=== PATIENT | female | born 1945 | race Caucasian/White ===

== ENCOUNTER 2016-10-28 18:46 | Observation (INO) ==
[2016-10-28 20:07] LABS: Basophils # 0.1 K/mcL (0.0-0.2); Basophils % 1.1 %; Eosinophils # 0.5 K/mcL (0.0-0.6); Eosinophils % 9.4 %; Hematocrit 36.3 % (35.3-44.9); Hemoglobin 11.4 g/dL (11.5-15.4); Immature Granulocytes % 0.4 % (0-4); Lymphocytes # 1.9 K/mcL (0.6-4.6); Lymphocytes % 33.1 %; Mean Corpuscular HGB Conc 31.4 g/dL (31.6-35.5); Mean Corpuscular Hemoglobin 27.2 pg (28.0-33.3); Mean Corpuscular Volume 86.6 fL (83.0-100.0); Mean Platelet Volume 10.1 fL (9.4-12.4); Monocytes # 0.6 K/mcL (0.0-1.3); Monocytes % 10.3 %; Neutrophils # 2.6 K/mcL (1.6-8.9); Platelet Count 247 K/mcL (140-400); Red Blood Count 4.19 M/mcL (3.82-4.97); Red Cell Distribution Width 14.3 % (11.5-14.5); Segmented Neutrophils % 45.7 %
[2016-10-28 20:12] LABS: INR 1.3; Prothrombin Time 14.1 Seconds (9.4-12.1)
[2016-10-28 20:15] LABS: Activated Partial Thrombo Time 34.7 Seconds (26.0-36.0)
[2016-10-28 20:18] LABS: BUN/Creatinine Ratio 14 (6-26); Blood Urea Nitrogen 12 mg/dL (7-20); Calcium 9.4 mg/dL (8.6-10.8); Carbon Dioxide 27 mEq/L (19-29); Chloride 103 mEq/L (98-109); Glucose 100 mg/dL (70-99); Osmolality,Calculated 284 (280-300); Potassium 3.9 mEq/L (3.5-4.5); Sodium 137 mEq/L (136-145); eGFR For African Americans > 60 (> 60); eGFR For Non-African Americans > 60 (> 60)
--- NOTE | 2016-10-28 21:05 | Emergency Department Note ---
Disposition Clinical Impression: Chest pain, rule out acute myocardial infarction Disposition: Admitted As Inpatient Condition: Good Time of Disposition: 22:31 General Adult HPI - General Chief complaint: ED Chest Pain Stated complaint: chest pain from UC Time Seen by Provider: 10/28/16 19:40 Source: patient Mode of arrival: ambulatory Limitations: no limitations Nursing Notes Reviewed: Yes Vital Signs Reviewed: Yes - History of Present Illness HPI Narrative: 71-year-old male presents with chest pain associated with dyspnea on exertion. Patient states that she has become dyspneic with exertion from her bedroom to the Pain Scale: 0 - Related Data Home Medications Medication Instructions Recorded Confirmed Aspirin Enteric Coated [Aspirin EC] 81 mg PO QAM 06/07/15 10/28/16 Atorvastatin [Lipitor] 40 mg PO DAILY 06/07/15 10/28/16 Carvedilol [Coreg] 25 mg PO BID 06/07/15 10/28/16 Clopidogrel [Plavix] 75 mg PO QAM 06/07/15 10/28/16 Ezetimibe [Zetia] 10 mg PO QAM 06/07/15 10/28/16 Nitroglycerin 0.4 mg SL AD PRN 06/07/15 10/28/16 Ranitidine HCl [Zantac] 150 mg PO BID 06/07/15 10/28/16 Losartan Potassium [Cozaar] 50 mg PO DAILY 12/20/15 10/28/16 Allergies Allergy/AdvReac Type Severity Reaction Status Date / Time No Known Allergies Allergy Verified 06/07/15 14:36 All systems ED: reviewed and negative except as stated. Constitutional: Reports: weakness. Denies: fever, chills Cardiovascular: Reports: chest pain, palpitations, dyspnea on exertion. Denies : orthopnea, syncope, paroxysmal nocturnal dyspnea Respiratory: Reports: cough, dyspnea. Denies: wheezes Gastrointestinal: Reports: nausea. Denies: abdominal pain, vomiting, diarrhea Genitourinary: Denies: urgency, dysuria Musculoskeletal: Denies: back pain, neck pain Integumentary: Denies: rash, abrasion Neurological: Denies: headache, weakness, numbness Past Medical History - Past Medical History Attestation: Yes The following information was validated with the patient. Source: patient Medical history: Reports: hypertension, other Surgical history: Reports: angioplasty/stent, breast surgery, cholecystectomy, hysterectomy, knee replacement, other Psychiatric history: Reports: no psych history PC SUPPORT SPECIALIST history: Reports: no PC SUPPORT SPECIALIST history, bilateral tubal ligation - Social History Smoking Status: Never smoker Smokeless Tobacco Status: No Alcohol use: Reports: none Drug use: Reports: none Physical Exam General: Alert and in no acute distress Skin: Warm, dry, intact Head: Normocephalic and atraumatic Neck: Supple, trachea midline and no tenderness Cardiovascular: RRR, no murmur, normal perfusion Respiratory: CTAB, no wheezing, cough, or respiratory distress Musculoskeletal: Normal strength, no tenderness, swelling or deformity GI: Soft, nontender, nondistended. Bowel sounds present Neuro: A&O to person, place, time and situation. No focal deficits noted on exam Psychiatric: cooperative and appropriate mood and affect. - General Limitations: no limitations General appearance: alert Course Vital Signs Temperature 97.0 F L 10/28/16 18:48 Pulse Rate 65 10/28/16 18:48 Respiratory Rate 18 10/28/16 18:48 Blood Pressure 177/85 10/28/16 18:48 O2 Sat by Pulse Oximetry 97 10/28/16 18:48 Temperature 97.0 F L 10/28/16 18:48 Pulse Rate 65 10/28/16 20:50 Respiratory Rate 20 10/28/16 21:56 Blood Pressure 160/84 10/28/16 21:56 O2 Sat by Pulse Oximetry 99 10/28/16 20:50 Oxygen Delivery Oxygen Delivery Nasal Cannula Medical Decision Making - Medical Records Medical records reviewed: Yes I reviewed the patient's medical records. - Lab Data Lab results reviewed: Yes I reviewed the patient's lab results. Result diagrams: 10/28/16 19:59 10/28/16 19:59 Lab Results 10/28/16 10/28/16 10/28/16 Range/Units 19:59 19:59 19:59 WBC 5.7 (4.3-11.1) K/mcL RBC 4.19 (3.82-4.97) M/mcL Hgb 11.4 L (11.5-15.4) g/dL Hct 36.3 (35.3-44.9) % MCV 86.6 (83.0-100.0) fL MCH 27.2 L (28.0-33.3) pg MCHC 31.4 L (31.6-35.5) g/dL RDW 14.3 (11.5-14.5) % Plt Count 247 (140-400) K/mcL MPV 10.1 (9.4-12.4) fL Immature Gran % 0.4 (0-4) % Seg Neutrophils % 45.7 % Lymphocytes % 33.1 % Monocytes % 10.3 % Eosinophils % 9.4 % Basophils % 1.1 % Neutrophils # 2.6 (1.6-8.9) K/mcL Lymphocytes # 1.9 (0.6-4.6) K/mcL Monocytes # 0.6 (0.0-1.3) K/mcL Eosinophils # 0.5 (0.0-0.6) K/mcL Basophils # 0.1 (0.0-0.2) K/mcL PT 14.1 H (9.4-12.1) Seconds INR 1.3 APTT 34.7 (26.0-36.0) Seconds Sodium 137 (136-145) mEq/L Potassium 3.9 (3.5-4.5) mEq/L Chloride 103 (98-109) mEq/L Carbon Dioxide 27 (19-29) mEq/L BUN 12 (7-20) mg/dL Creatinine 0.88 (0.57-1.11) mg/dL Est GFR ( Amer) > 60 (> 60) Est GFR (Non-Af Amer) > 60 (> 60) BUN/Creatinine Ratio 14 (6-26) Glucose 100 H (70-99) mg/dL Calculated Osmolality 284 (280-300) Calcium 9.4 (8.6-10.8) mg/dL Troponin I (0-0.03) ng/mL 10/28/16 Range/Units 19:59 WBC (4.3-11.1) K/mcL RBC (3.82-4.97) M/mcL Hgb (11.5-15.4) g/dL Hct (35.3-44.9) % MCV (83.0-100.0) fL MCH (28.0-33.3) pg MCHC (31.6-35.5) g/dL RDW (11.5-14.5) % Plt Count (140-400) K/mcL MPV (9.4-12.4) fL Immature Gran % (0-4) % Seg Neutrophils % % Lymphocytes % % Monocytes % % Eosinophils % % Basophils % % Neutrophils # (1.6-8.9) K/mcL Lymphocytes # (0.6-4.6) K/mcL Monocytes # (0.0-1.3) K/mcL Eosinophils # (0.0-0.6) K/mcL Basophils # (0.0-0.2) K/mcL PT (9.4-12.1) Seconds INR APTT (26.0-36.0) Seconds Sodium (136-145) mEq/L Potassium (3.5-4.5) mEq/L Chloride (98-109) mEq/L Carbon Dioxide (19-29) mEq/L BUN (7-20) mg/dL Creatinine (0.57-1.11) mg/dL Est GFR ( Amer) (> 60) Est GFR (Non-Af Amer) (> 60) BUN/Creatinine Ratio (6-26) Glucose (70-99) mg/dL Calculated Osmolality (280-300) Calcium (8.6-10.8) mg/dL Troponin I 0.01 (0-0.03) ng/mL - Radiology Data Radiology results reviewed: Yes I reviewed the patient's radiology results. - EKG Data EKG #1 EKG attestation: Yes I reviewed and interpreted this EKG. EKG results narrative: ECG - interpreted by ED physician. normal sinus rhythm, no STEMI, MT, QT intervals, and QRS within normal limits
[2016-10-28] MEDS ORDERED: Nitroglycerin 0.4 MG TAB.SUBL SL PRN (22:45)
[2016-10-28] MEDS ORDERED: Acetaminophen 325 MG TABLET PO PRN (23:03)
[2016-10-28] MEDS ORDERED: Ondansetron 4 MG/2 ML VIAL IVP PRN (23:03)
[2016-10-28] MEDS ORDERED: Naloxone 0.4 MG/ML INJ IVP PRN (23:03)
--- NOTE | 2016-10-28 23:22 | Internal Med History&Physical ---
Date of Encounter: 10/28/16 Time of Encounter: 21:15 Internal Medicine - H&P: HPI Chief complaint: chest pain x 1 day Admitted From: Emergency Dept Plans for Post Hospital Care: Home History of present illness: Ms. Renner is a 71 year old female with medical history significant for CAD s/ p PCI with two coronary stents, presents with chest pain at rest, associated with nausea and SOB with an exertional component. The chest pain went up her left shoulder and down her arm. Chest pain is intermittent, last about 1 hour. No other associated symptoms. Her daughter convinced her to come to hospital. A complete ROS was performed. She is FULL CODE as per discussion. She nominates her daughter (Mahsa Crystal, ) as her NOK/POA. Medical history: Reports: hypertension, other Surgical history: Reports: angioplasty/stent, breast surgery, cholecystectomy, hysterectomy, knee replacement, other Psychiatric history: Reports: no psych history PROGRAM INSTRUCTOR history: Reports: no PROGRAM INSTRUCTOR history, bilateral tubal ligation Smoking Status: Never smoker Smokeless Tobacco Status: None Alcohol use: Reports: none Drug use: Reports: none Family hx: Sister: DM2, DAUGHTER: asthma Vital Signs Temperature 97.0 F L 10/28/16 18:48 Pulse Rate 65 10/28/16 18:48 Respiratory Rate 18 10/28/16 18:48 Blood Pressure 177/85 10/28/16 18:48 O2 Sat by Pulse Oximetry 97 10/28/16 18:48 Temperature 97.0 F L 10/28/16 18:48 Pulse Rate 65 10/28/16 20:50 Respiratory Rate 20 10/28/16 21:56 Blood Pressure 160/84 10/28/16 21:56 O2 Sat by Pulse Oximetry 99 10/28/16 20:50 O/E: Not in distress, not pale, anicteric, afebrile,acyanotic, HEENT: Trachea is central, no cervical or jugular lymphadenopathy Chest: CTAB. chest pain is not reproducible Heart:rrr, hs1/2 Abdomen: non-distended,soft, , non-tender,no masses. BS+ : no flank or CVA tenderness, no suprapubic tenderness MARINE PHOTOGRAPHER: aao x 3, no gross focal neurological deficit. Psychaitry: Mood is good, affect is congruent, speech is normal, thought process is logical and goal-directed. Extremities: no pedal normal pedal pulses, no calf tenderness SKIN: No active skin lesion Lab Results 10/28/16 10/28/16 10/28/16 Range/Units 19:59 19:59 19:59 WBC 5.7 (4.3-11.1) K/mcL RBC 4.19 (3.82-4.97) M/mcL Hgb 11.4 L (11.5-15.4) g/dL Hct 36.3 (35.3-44.9) % MCV 86.6 (83.0-100.0) fL MCH 27.2 L (28.0-33.3) pg MCHC 31.4 L (31.6-35.5) g/dL RDW 14.3 (11.5-14.5) % Plt Count 247 (140-400) K/mcL MPV 10.1 (9.4-12.4) fL Immature Gran % 0.4 (0-4) % Seg Neutrophils % 45.7 % Lymphocytes % 33.1 % Monocytes % 10.3 % Eosinophils % 9.4 % Basophils % 1.1 % Neutrophils # 2.6 (1.6-8.9) K/mcL Lymphocytes # 1.9 (0.6-4.6) K/mcL Monocytes # 0.6 (0.0-1.3) K/mcL Eosinophils # 0.5 (0.0-0.6) K/mcL Basophils # 0.1 (0.0-0.2) K/mcL PT 14.1 H (9.4-12.1) Seconds INR 1.3 APTT 34.7 (26.0-36.0) Seconds Sodium 137 (136-145) mEq/L Potassium 3.9 (3.5-4.5) mEq/L Chloride 103 (98-109) mEq/L Carbon Dioxide 27 (19-29) mEq/L BUN 12 (7-20) mg/dL Creatinine 0.88 (0.57-1.11) mg/dL Est GFR ( Amer) > 60 (> 60) Est GFR (Non-Af Amer) > 60 (> 60) BUN/Creatinine Ratio 14 (6-26) Glucose 100 H (70-99) mg/dL Calculated Osmolality 284 (280-300) Calcium 9.4 (8.6-10.8) mg/dL Troponin I (0-0.03) ng/mL 10/28/16 Range/Units 19:59 WBC (4.3-11.1) K/mcL RBC (3.82-4.97) M/mcL Hgb (11.5-15.4) g/dL Hct (35.3-44.9) % MCV (83.0-100.0) fL MCH (28.0-33.3) pg MCHC (31.6-35.5) g/dL RDW (11.5-14.5) % Plt Count (140-400) K/mcL MPV (9.4-12.4) fL Immature Gran % (0-4) % Seg Neutrophils % % Lymphocytes % % Monocytes % % Eosinophils % % Basophils % % Neutrophils # (1.6-8.9) K/mcL Lymphocytes # (0.6-4.6) K/mcL Monocytes # (0.0-1.3) K/mcL Eosinophils # (0.0-0.6) K/mcL Basophils # (0.0-0.2) K/mcL PT (9.4-12.1) Seconds INR APTT (26.0-36.0) Seconds Sodium (136-145) mEq/L Potassium (3.5-4.5) mEq/L Chloride (98-109) mEq/L Carbon Dioxide (19-29) mEq/L BUN (7-20) mg/dL Creatinine (0.57-1.11) mg/dL Est GFR ( Amer) (> 60) Est GFR (Non-Af Amer) (> 60) BUN/Creatinine Ratio (6-26) Glucose (70-99) mg/dL Calculated Osmolality (280-300) Calcium (8.6-10.8) mg/dL Troponin I 0.01 (0-0.03) ng/mL EKG: NSR, normla interval, normal axis CXR: No gross cardiopulmonary disease IMP Atypical chest pain, ACS vs GERD Chronic morbidities Hypertension CAD s/p PCI x 2 stents. GERD on chronic PPI PLAN Admit to telemetry Cycle troponins, serial EKG Stress test in the AM Continue essential medications of chronic morbidities DVT prophylaxis. I discussed my findings and assessment with the patient, her daughter was at bedside, they verbalized understanding and are agreeable to admiited. She is high risk giving has history of CAD with PCI. Past Med Surg Social Fam HX - Past Medical History Medical history: hypertension, other Psychiatric history: no psych history - Past Surgical History Surgical History: angioplasty/stent, breast surgery, cholecystectomy, hysterectomy, knee replacement, other - Social History Smoking Status: Never smoker Smokeless Tobacco Status: No Alcohol use: none Drug use: none - Family History Mother Living Status: Hx Family Cardiac Disorders: Yes Father Living Status: Hx Family Cardiac Disorders: Yes Sister Living Status: Still Living Brother Living Status: Still Living Hx Family Cardiac Disorders: Yes Internal Medicine - H&P: Meds Aspirin Enteric Coated [Aspirin EC] 81 mg PO QAM 06/07/15 [History] Atorvastatin [Lipitor] 40 mg PO DAILY 06/07/15 [History] Carvedilol [Coreg] 25 mg PO BID 06/07/15 [History] Clopidogrel [Plavix] 75 mg PO QAM 06/07/15 [History] Ezetimibe [Zetia] 10 mg PO QAM 06/07/15 [History] Nitroglycerin 0.4 mg SL AD PRN 06/07/15 [History] Ranitidine HCl [Zantac] 150 mg PO BID 06/07/15 [History] Losartan Potassium [Cozaar] 50 mg PO DAILY 12/20/15 [History] Allergies No Known Allergies Allergy (Verified 06/07/15 14:36) All Systems PM: A 10-system review of systems was performed and is negative for pertinent findings except as documented above in the HPI. - Constitutional Vitals: Temp Pulse Resp BP Pulse Ox 97.5 F L 69 16 141/73 98 10/28/16 22:47 10/28/16 22:47 10/28/16 22:47 10/28/16 22:47 10/28/16 22:47 Internal Med - H&P Results - Labs CBC & Chem 7: 10/28/16 19:59 10/28/16 19:59
[2016-10-29] MEDS: *HR* Enoxaparin 30 MG/0.3 ML SYRINGE SQ SCH (05:20)
[2016-10-29] MEDS ORDERED: Regadenoson 0.4 MG/5 ML SYRINGE IVP ONE (06:16)
[2016-10-29] MEDS: *HR* Morphine 2 MG/ML SYRINGE IVP PRN ×2 (09:21→22:40)
[2016-10-29] MEDS: Aspirin Enteric Coated 81 MG Tablet PO SCH (09:22)
[2016-10-29] MEDS: Famotidine 20 MG TABLET PO SCH ×2 (09:22→17:54)
[2016-10-29] MEDS: ZETIA 10MG PO SCH (09:30)
--- NOTE | 2016-10-29 16:01 | Internal Med Progress Note ---
Date of Encounter: 10/29/16 Time of Encounter: 12:45 - Assessment and plan (1) Chest pain Current Visit: Yes Status: Acute Assessment and plan: Nuclear stress test part one done today. Awaiting part 2 get scheduled for tomorrow. Chest pain has now resolved. Patient does have increased risk for ACS due to history of coronary artery disease. Qualifiers: Chest pain type: precordial chest pain Qualified Code(s): R07.2 - Precordial pain (2) GERD (gastroesophageal reflux disease) Current Visit: Yes Status: Chronic Assessment and plan: On PPI. Continue Qualifiers: Esophagitis presence: without esophagitis Qualified Code(s): K21.9 - Gastro -esophageal reflux disease without esophagitis (3) CAD (coronary artery disease) Current Visit: Yes Status: Chronic Assessment and plan: Continue aspirin, Plavix, Lipitor and carvedilol. Qualifiers: Coronary Disease-Associated Artery/Lesion type: [place] artery [place] vs. transplanted heart: [place] heart Associated angina: with stable angina Qualified Code(s): I25.118 - Atherosclerotic heart disease of [place] coronary artery with other forms of angina pectoris (4) Hypertension Current Visit: Yes Status: Chronic Assessment and plan: Blood pressure is well controlled at this time. Qualifiers: Hypertension type: essential hypertension Qualified Code(s): I10 - Essential (primary) hypertension - Subjective Interval history: Patient is feeling better today. No longer having any chest pain. No shortness of breath. No abdominal pain nausea or vomiting. - Constitutional Vitals: Temp Pulse Resp BP Pulse Ox 98 F 74 14 125/59 92 L 10/29/16 12:29 10/29/16 12:29 10/29/16 12:29 10/29/16 12:29 10/29/16 12:29 General appearance: Present: cooperative, mild distress, A&O X 3, answers questions appropriately - Respiratory Respiratory exam: Present: CTAB. Absent: accessory muscle use, rales, rhonchi, wheezes - Cardiovascular Cardiovascular exam: Present: RRR, +S1, +S2. Absent: diastolic murmur, gallop, rubs, systolic murmur - GI/Abdominal GI/Abdominal exam: Present: normal bowel sounds, soft, no peritoneal signs. Absent: distended, tenderness - Extremities Exam Extremities exam: Present: warm, radial pulses palpable and symetrical. Absent : calf tenderness, cyanotic, pedal edema - Neurological Exam Neurological exam: Present: CN II-XII intact, oriented X3, no focal deficits. Absent: facial droop, speech deficit - Skin Skin exam: Present: dry, intact Internal Medicine: Result - Labs CBC & Chem 7: 10/28/16 19:59 10/28/16 19:59 Labs: Cardiac Enzymes 10/29/16 10/29/16 Range/Units 03:26 09:12 Troponin I 0.01 0.02 (0-0.03) ng/mL - ABG Interpretation ABG results: PT/INR, D-dimer PT 14.1 Seconds (9.4-12.1) H 10/28/16 19:59 Consult Discharge Plan - Plan Referrals: Mo wilson MD [Primary Care Provider] - - Attending Attestation This document has been at least partially created by [employer] recognition technology by Dr. Jacobs. Errors in grammar, wording or other phrases may exist. If errors are found after the documentation is signed, they will be addressed individually in the addendum section of this document when appropriate. Medical Decision Making - MDM Narrative Medical decision making narrative: Moderate risk for complications - Medical Records Medical records reviewed: Yes I reviewed the patient's medical records. - Lab Data Lab results reviewed: Yes I reviewed the patient's lab results. Result diagrams: 10/28/16 19:59 10/28/16 19:59 Lab Results 10/29/16 10/29/16 Range/Units 03:26 09:12 Troponin I 0.01 0.02 (0-0.03) ng/mL
--- NOTE | 2016-10-29 18:23 | Electrocardiograph Report ---
[facility] Test Date: 2016-10-28 Pat Name: Pepper Renner Department: 105 Room: 3B23 Gender: F Waste Reduction Coordinator: : 1945 Requested By: Mo Henderson Order Number: [id number] Reading MD: Letha Zarate Measurements Intervals Lester Rate: 66 P: 35 MN: 163 QRS: 1 QRSD: 84 T: 13 QT: 378 QTc: 392 Interpretive Statements SINUS RHYTHM MODERATE VOLTAGE CRITERIA FOR LVH, CONSIDER NORMAL VARIANT Electronically Signed On 10-29-16 18:22:24 EST by Letha Zarate
[2016-10-30] MEDS: *HR* Enoxaparin 30 MG/0.3 ML SYRINGE SQ SCH (06:02)
[2016-10-30] MEDS ORDERED: Regadenoson 0.4 MG/5 ML SYRINGE IVP ONE (06:23)
[2016-10-30 11:45] VITALS: BP 133/76
--- NOTE | 2016-10-30 12:13 | Nuclear Medicine Stress Report ---
Regadenoson Nuclear 2 day Name: Pepper Renner Date of Study: 10/29/2016 Date: 1945 Ht: 59.0 in Medical Record#: [id number] Age: 71 Wt: 185.0 lb Gender: Female Order #: [id number] Location: [facility] Room: [facility] Supervising Provider: Krish Emery CNP Reading Physician: Ramona Torres DO Ordering Physician: Rasheed Jacobs MD Primary Care Physician: Mo Chang MD Stress Technologist: Cholo Meneses, ANIMAL NUTRITION CONSULTANT, CCT Sexer: Esau Amin Indications: Chest Pain Impression: Perfusion imaging was negative for ischemia or infarct. Pharmacologic ECG was negative for ischemia at the level of heart rate achieved. Patient described 3/10 chest pain prior to start of study which increased to 8/10 during testing. Findings are nonspecific. Gated EF = >70%. History: Hypertension Hypercholesteremia Prior PCI Stress Test Summary: Stress Test Type: Pharmacologic Regadenoson 0.4mg/5ml given IV Baseline Information: Initial Heart Rate: 74 Blood Pressure: 146/84 Stress Information: Stress Time: 4 min 00 sec Test Terminated Due to (primary): Completed Protocol Maximum Blood Pressure: 146/80 Maximum Heart Rate: 93 Percent Maximum Heart Rate Achieved: 62 Double Product: [id number] METS Reached: 1 Symptoms: Chest pain Nuclear Summary: SPECT myocardial perfusion imaging using Tc99m Sestamibi given intravenously was performed at rest and following cardiac stress testing. The resting images were obtained following initial dose of 10.4 mCi. Following stress an additional dose of 34.6 mCi was given at peak exercise or 30 seconds post regadenoson infusion. Medication Given: Time Medication Dose Units Route Findings: Stress Note * Resting ECG demonstrated normal sinus rhythm with normal findings. * Pharmacologic stress ECG is negative for ischemia at level of heart rate achieved. * No arrhythmias were noted during stress. * Patient had chest pain/pressure during stress. Hemodynamic responses * Normal hemodynamic responses to pharmacologic stress. Study Quality * Study quality is good. Gated EF > 70% * Gated EF > 70%. Left Ventricle * The left ventricle is not dilated. TID * No evidence of transient ischemic dilatation. Lung Uptake * There is no evidence of increase lung uptake. NORMALS * Normal wall motion. * Normal segmental perfusion in stress. * Normal Segmental Perfusion in rest. Updated by Ramona Torres on 10/30/2016 12:05:14 PM electronically signed on 10/30/2016 12:06:24 PM with status of Final
--- NOTE | 2016-10-30 14:07 | Discharge Summary ---
Date of Encounter: 10/30/16 Time of Encounter: 14:04 - Discharge Diagnosis (1) Chest pain Priority: Primary Status: Acute Qualifiers: Chest pain type: precordial pain Qualified Code(s): R07.2 - Precordial pain (2) GERD (gastroesophageal reflux disease) Priority: Secondary Status: Chronic Qualifiers: Esophagitis presence: without esophagitis Qualified Code(s): K21.9 - Gastro -esophageal reflux disease without esophagitis (3) CAD (coronary artery disease) Priority: Secondary Status: Chronic Qualifiers: Coronary Disease-Associated Artery/Lesion type: [place] artery [place] vs. transplanted heart: [place] heart Associated angina: with stable angina Qualified Code(s): I25.118 - Atherosclerotic heart disease of [place] coronary artery with other forms of angina pectoris (4) Hypertension Priority: Secondary Status: Chronic Qualifiers: Hypertension type: essential hypertension Qualified Code(s): I10 - Essential (primary) hypertension - Discharge Medications Prescriptions: Acetaminophen [Tylenol] 650 mg PO Q6HR PRN #60 tablet PRN Reason: Mild Pain (1-3) Home Medications: Aspirin Enteric Coated [Aspirin EC] 81 mg PO QAM 06/07/15 [History] Atorvastatin [Lipitor] 40 mg PO DAILY 06/07/15 [History] Carvedilol [Coreg] 25 mg PO BID 06/07/15 [History] Clopidogrel [Plavix] 75 mg PO QAM 06/07/15 [History] Ezetimibe [Zetia] 10 mg PO QAM 06/07/15 [History] Nitroglycerin 0.4 mg SL AD PRN 06/07/15 [History] Ranitidine HCl [Zantac] 150 mg PO BID 06/07/15 [History] Losartan Potassium [Cozaar] 50 mg PO DAILY 12/20/15 [History] Acetaminophen [Tylenol] 650 mg PO Q6HR PRN #60 tablet 10/30/16 [Rx] Allergies/Adverse Reactions: Allergies No Known Allergies Allergy (Verified 06/07/15 14:36) Procedures/tests Complete & Pending: Procedures Performed prior 72 hours Category Date Time Status NM bhaskar perf SPECT multi [NM] Routine Exams 10/29/16 06:00 Taken ECG 12 lead ECG [ECG] AM 0600 Y 10/29/16 06:00 Ordered SP pharm nuclear stress Routine Y 10/30/16 07:40 Completed Date of admission: 10/28/16 21:42 Primary care physician: Mo Chang MD Discharging clinician: Rasheed Jacobs Anticipated date of discharge: 10/30/16 - Patient Status Disposition: Home, Self-Care Condition: Good Functional capacity at discharge: independent ambulation Overall status at discharge: patient is progressing back to baseline - Discharge Instructions Instructions: Chest Pain (DC), Chronic Hypertension (DC) Follow Up With: Mo Chang MD [Primary Care Provider] - (in 1 week) - Diet and Activity Activity: increase activity as tolerated Diet: low fat, low cholesterol, low salt diet Hospital course: Ms. Renner is a 71 year old female with history of coronary artery disease status post PCI and coronary stents presented to the ER with complaints of chest pain. She was observed in the hospital and monitored with telemetry and EKGs. She also had troponins checked. As these were negative, she underwent nuclear stress test. Stress test does not show any signs suggestive of ischemia. Patient continues to have intermittent chest pain associated with costochondral tenderness. Pain is most likely related to costochondritis. This can be treated with analgesics like acetaminophen. Patient does have a history of gastroesophageal reflux disease which could also be contributing to her chest pain. As such she would not be a candidate for NSAIDs. The patient is currently stable for discharge and will follow up with primary care provider for further management. - Time Spent with Patient Total time spent providing and/or coordinating discharge services: Less than 30 minutes (25 min) - Constitutional Vitals: Temp Pulse Resp BP Pulse Ox 97.6 F 71 18 133/76 91 L 10/30/16 11:43 10/30/16 11:43 10/30/16 11:43 10/30/16 11:43 10/30/16 11:43 General appearance: Present: cooperative, mild distress, A&O X 3, answers questions appropriately - Respiratory Respiratory exam: Present: chest wall tenderness, CTAB. Absent: accessory muscle use, rales, rhonchi, wheezes - Cardiovascular Cardiovascular exam: Present: RRR, +S1, +S2. Absent: diastolic murmur, gallop, rubs, systolic murmur Additional comments: Left sided chest wall tenderness present - Extremities Exam Extremities exam: Present: warm, radial pulses palpable and symetrical. Absent : calf tenderness, cyanotic, pedal edema - Neurological Exam Neurological exam: Present: oriented X3, no focal deficits. Absent: facial droop, speech deficit - Skin Skin exam: Present: dry, intact - Attending Attestation This document has been at least partially created by [employer] recognition technology by Dr. Jacobs. Errors in grammar, wording or other phrases may exist. If errors are found after the documentation is signed, they will be addressed individually in the addendum section of this document when appropriate.
[2016-10-30] MEDS: Aspirin Enteric Coated 81 MG Tablet PO SCH (14:59)
[2016-10-30] MEDS: Famotidine 20 MG TABLET PO SCH (14:59)
[2016-10-30] MEDS: ZETIA 10MG PO SCH (14:59)
== END 2016-10-30 16:11 | disposition home or self-care (01) ==
LOC: EMEROO 18:46 → 3BNU 18:46 → SUATTDRO 21:42 → 3BNU 22:13
PROVIDERS: ADMIT Family Medicine; ATTEND Internal Medicine

== ENCOUNTER 2018-08-28 18:12 | Inpatient (IN) ==
[2018-08-28] MEDS ORDERED: Aspirin 81 MG TAB.CHEW PO ONE (18:30)
--- NOTE | 2018-08-28 18:43 | Emergency Department Note ---
Disposition Clinical Impression: Chest pain Qualifiers: Chest pain type: unspecified Qualified Code(s): R07.9 - Chest pain, unspecified Disposition: Admitted As Inpatient Condition: Good Time of Disposition: 20:12 General Adult HPI - General Chief complaint: ED Chest Pain Stated complaint: CP Time Seen by Provider: 08/28/18 18:25 Source: patient Mode of arrival: ambulatory Limitations: no limitations Nursing Notes Reviewed: Yes Vital Signs Reviewed: Yes - History of Present Illness HPI Narrative: Patient is a 72-year-old female that presents the emergency department with chest pain. Patient states that it started approximately one and half hours prior to arrival. Patient states that the pain is located on the left side of her chest and radiates into her left neck and shoulder. Patient states that she did become short of breath nauseated and vomited with her chest pain. Patient's daughter is at bedside and stated that she did give her one nitroglycerin and gave her some Zofran. Denies any diaphoresis. Patient states that she has had stents put in in the past as well as having a heart attack. Patient states that this feels very similar to her previous heart attack. Patient states that her pain as a 10 out of 10. Pain Scale: 10 - Related Data Home Medications Medication Instructions Recorded Confirmed Atorvastatin [Lipitor] 40 mg PO DAILY 06/07/15 08/28/18 Carvedilol [Coreg] 25 mg PO BID 06/07/15 08/28/18 Clopidogrel [Plavix] 75 mg PO QAM 06/07/15 08/28/18 Ezetimibe [Zetia] 10 mg PO QAM 06/07/15 08/28/18 Nitroglycerin 0.4 mg SL AD PRN 06/07/15 08/28/18 Ranitidine HCl [Zantac] 150 mg PO BID 06/07/15 08/28/18 Losartan Potassium [Cozaar] 50 mg PO DAILY 12/20/15 08/28/18 Hyoscyamine SL [Levsin SL] 0.125 mg SL TID PRN 08/28/18 08/28/18 Previous Rx's Medication Instructions Recorded Ondansetron ODT [Zofran ODT] 4 mg SL Q6HR PRN #7 tab.rapdis 07/31/18 Allergies Allergy/AdvReac Type Severity Reaction Status Date / Time No Known Allergies Allergy Verified 08/28/18 18:39 All systems ED: reviewed and negative except as stated. Constitutional: Denies: fever Cardiovascular: Reports: chest pain Respiratory: Reports: dyspnea Gastrointestinal: Reports: nausea, vomiting. Denies: abdominal pain Past Medical History - Past Medical History Medical history: Reports: hypertension, other Surgical history: Reports: angioplasty/stent, breast surgery, cholecystectomy, hysterectomy, knee replacement, other Psychiatric history: Reports: no psych history CLINICAL PROFESSOR history: Reports: no CLINICAL PROFESSOR history, bilateral tubal ligation - Social History Smoking Status: 2nd Hand Smoke Exposure Smokeless Tobacco Status: No Alcohol use: Reports: none Drug use: Reports: none Physical Exam - General Limitations: no limitations General appearance: alert, in no apparent distress - Head Head exam: atraumatic, normocephalic - Eye Eye exam: Present: normal appearance, EOMI - Neck Neck exam: Present: normal inspection, full ROM, trachea midline - Respiratory Respiratory exam: Present: normal lung sounds bilaterally. Absent: respiratory distress, wheezes - Cardiovascular Cardiovascular exam: Present: regular rate, normal rhythm, normal heart sounds, +S1, +S2 - Abdominal Exam Abdominal exam: Present: soft, Non-Tender, normal bowel sounds - Neurological Exam Neurological exam: Present: alert, oriented X3 - Psychiatric Psychiatric exam: Present: normal affect, normal mood - Skin Skin exam: Present: warm, dry, intact Course Vital Signs Temperature 98.4 F 08/28/18 18:21 Pulse Rate 74 08/28/18 18:21 Respiratory Rate 18 08/28/18 18:21 Blood Pressure 130/75 08/28/18 18:21 O2 Sat by Pulse Oximetry 95 08/28/18 18:21 Temperature 98.4 F 08/28/18 18:42 Pulse Rate 76 08/28/18 19:12 Respiratory Rate 20 08/28/18 19:12 Blood Pressure 95/50 08/28/18 19:12 O2 Sat by Pulse Oximetry 98 08/28/18 19:12 Oxygen Delivery Oxygen Delivery Room Air Medical Decision Making - MDM Narrative Medical decision making narrative: Due the patient's into the emergency Department with chest pain with a history of prior myocardial infarction and this feeling very similar to that there is concern for possible cardiac involvement. We will obtain basic laboratory testing quitting CBC, BMP, troponin chest x-ray and EKG. The patient will need to be admitted to the hospital for further evaluation and management of her chest pain due to the acute onset. Patient's laboratory testing is relatively unremarkable other than a mild chronic anemia. Patient's chest x-ray did show a mild perihilar opacity however when compared to previous chest x-ray did not feel that this looks like an overt pneumonia. Patient has not been coughing. His afebrile and does not have an elevated white count. We will not treat the chest x-ray findings here in the emergency department. Patient will need to be admitted to the hospital for further evaluation and management of her chest pain. I called and spoke with the admitting hospitalist and they have accepted the patient to their service. Patient will be admitted to the hospital this time for further evaluation and management. - Medical Records Medical records reviewed: Yes I reviewed the patient's medical records. - Lab Data Lab results reviewed: Yes I reviewed the patient's lab results. Result diagrams: 08/28/18 18:37 08/28/18 18:37 Lab Results 08/28/18 08/28/18 08/28/18 Range/Units 18:37 18:37 18:37 WBC 6.3 (4.3-11.1) K/mcL RBC 3.40 L (3.82-4.97) M/mcL Hgb 9.7 L (11.5-15.4) g/dL Hct 30.3 L (35.3-44.9) % MCV 89.1 (83.0-100.0) fL MCH 28.5 (28.0-33.3) pg MCHC 32.0 (31.6-35.5) g/dL RDW 13.1 (11.5-14.5) % Plt Count 211 (140-400) K/mcL MPV 10.5 (9.4-12.4) fL Immature Gran % 0.3 (0-4) % Seg Neutrophils % 62.4 % Lymphocytes % 21.6 % Monocytes % 10.6 % Eosinophils % 4.5 % Basophils % 0.6 % Neutrophils # 3.9 (1.6-8.9) K/mcL Lymphocytes # 1.4 (0.6-4.6) K/mcL Monocytes # 0.7 (0.0-1.3) K/mcL Eosinophils # 0.3 (0.0-0.6) K/mcL Basophils # 0.0 (0.0-0.2) K/mcL PT 14.0 H (9.4-12.1) Seconds INR 1.2 Sodium 135 L (136-145) mEq/L Potassium 4.3 (3.5-5.1) mEq/L Chloride 101 (98-107) mEq/L Carbon Dioxide 27 (23-29) mEq/L BUN 12 (8-23) mg/dL Creatinine 0.98 (0.60-1.20) mg/dL Est GFR ( Amer) > 60 (> 60) Est GFR (Non-Af Amer) 56 L (> 60) BUN/Creatinine Ratio 12 (6-26) Glucose 114 H (70-105) mg/dL Calculated Osmolality 281 (280-300) Calcium 9.7 (8.6-10.3) mg/dL Troponin I < 0.03 (< 0.04) ng/mL - Radiology Data Radiology results reviewed: Yes I reviewed the patient's radiology results. Chest X-Ray 08/28/18 18:30 IMPRESSION: Mild perihilar opacity. Finding could represent asymmetric edema or multifocal infection. D/ / Tiago Black MD / Tiago Black MD Interpreting Provider: Tiago Black MD - EKG Data EKG #1 EKG attestation: Yes I reviewed and interpreted this EKG. EKG results narrative: EKG shows a sinus rhythm at a rate of 66 bpm, NC interval 153, QRS duration of 83, QTC of 391. No evidence of STEMI and EKG.
[2018-08-28] MEDS: Nitroglycerin 0.4 MG TAB.SUBL SL ONE ×2 (18:55→19:10)
[2018-08-28 19:05] LABS: Basophils % 0.6 %; Eosinophils # 0.3 K/mcL (0.0-0.6); Eosinophils % 4.5 %; Hematocrit 30.3 % (35.3-44.9); Hemoglobin 9.7 g/dL (11.5-15.4); Immature Granulocytes % 0.3 % (0-4); Lymphocytes # 1.4 K/mcL (0.6-4.6); Lymphocytes % 21.6 %; Mean Corpuscular Hemoglobin 28.5 pg (28.0-33.3); Mean Corpuscular Volume 89.1 fL (83.0-100.0); Mean Platelet Volume 10.5 fL (9.4-12.4); Monocytes # 0.7 K/mcL (0.0-1.3); Monocytes % 10.6 %; Neutrophils # 3.9 K/mcL (1.6-8.9); Platelet Count 211 K/mcL (140-400); Red Cell Distribution Width 13.1 % (11.5-14.5); Segmented Neutrophils % 62.4 %
--- NOTE | 2018-08-28 19:11 | Emergency Department Note ---
Disposition Clinical Impression: Chest pain Qualifiers: Chest pain type: unspecified Qualified Code(s): R07.9 - Chest pain, unspecified Disposition: Admitted As Inpatient Condition: Good General Adult HPI - General Chief complaint: ED Chest Pain Stated complaint: CP Time Seen by Provider: 08/28/18 18:25 Source: patient Mode of arrival: ambulatory Limitations: no limitations - History of Present Illness Pain Scale: 10 - Related Data Home Medications Medication Instructions Recorded Confirmed Atorvastatin [Lipitor] 40 mg PO DAILY 06/07/15 08/28/18 Carvedilol [Coreg] 25 mg PO BID 06/07/15 08/28/18 Clopidogrel [Plavix] 75 mg PO QAM 06/07/15 08/28/18 Ezetimibe [Zetia] 10 mg PO QAM 06/07/15 08/28/18 Nitroglycerin 0.4 mg SL AD PRN 06/07/15 08/28/18 Ranitidine HCl [Zantac] 150 mg PO BID 06/07/15 08/28/18 Losartan Potassium [Cozaar] 50 mg PO DAILY 12/20/15 08/28/18 Hyoscyamine SL [Levsin SL] 0.125 mg SL TID PRN 08/28/18 08/28/18 Previous Rx's Medication Instructions Recorded Ondansetron ODT [Zofran ODT] 4 mg SL Q6HR PRN #7 tab.rapdis 07/31/18 Allergies Allergy/AdvReac Type Severity Reaction Status Date / Time No Known Allergies Allergy Verified 08/28/18 18:39 Constitutional: Denies: fever Cardiovascular: Reports: chest pain Respiratory: Reports: dyspnea Gastrointestinal: Reports: nausea, vomiting. Denies: abdominal pain Past Medical History - Past Medical History Medical history: Reports: hypertension, other Surgical history: Reports: angioplasty/stent, breast surgery, cholecystectomy, hysterectomy, knee replacement, other Psychiatric history: Reports: no psych history LABORATORY ENGINEER history: Reports: no LABORATORY ENGINEER history, bilateral tubal ligation - Social History Smoking Status: 2nd Hand Smoke Exposure Smokeless Tobacco Status: No Alcohol use: Reports: none Drug use: Reports: none Physical Exam - General Limitations: no limitations General appearance: alert, in no apparent distress Course Vital Signs Temperature 98.4 F 08/28/18 18:21 Pulse Rate 74 08/28/18 18:21 Respiratory Rate 18 08/28/18 18:21 Blood Pressure 130/75 08/28/18 18:21 O2 Sat by Pulse Oximetry 95 08/28/18 18:21 Temperature 98.0 F 08/28/18 21:15 Pulse Rate 70 08/28/18 21:15 Respiratory Rate 16 08/28/18 21:15 Blood Pressure 139/73 08/28/18 21:15 O2 Sat by Pulse Oximetry 93 08/28/18 21:15 Oxygen Delivery Oxygen Delivery Room Air Medical Decision Making - Lab Data Result diagrams: 08/28/18 18:37 08/28/18 18:37 Lab Results 08/28/18 08/28/18 08/28/18 Range/Units 18:37 18:37 18:37 WBC 6.3 (4.3-11.1) K/mcL RBC 3.40 L (3.82-4.97) M/mcL Hgb 9.7 L (11.5-15.4) g/dL Hct 30.3 L (35.3-44.9) % MCV 89.1 (83.0-100.0) fL MCH 28.5 (28.0-33.3) pg MCHC 32.0 (31.6-35.5) g/dL RDW 13.1 (11.5-14.5) % Plt Count 211 (140-400) K/mcL MPV 10.5 (9.4-12.4) fL Immature Gran % 0.3 (0-4) % Seg Neutrophils % 62.4 % Lymphocytes % 21.6 % Monocytes % 10.6 % Eosinophils % 4.5 % Basophils % 0.6 % Neutrophils # 3.9 (1.6-8.9) K/mcL Lymphocytes # 1.4 (0.6-4.6) K/mcL Monocytes # 0.7 (0.0-1.3) K/mcL Eosinophils # 0.3 (0.0-0.6) K/mcL Basophils # 0.0 (0.0-0.2) K/mcL PT 14.0 H (9.4-12.1) Seconds INR 1.2 Sodium 135 L (136-145) mEq/L Potassium 4.3 (3.5-5.1) mEq/L Chloride 101 (98-107) mEq/L Carbon Dioxide 27 (23-29) mEq/L BUN 12 (8-23) mg/dL Creatinine 0.98 (0.60-1.20) mg/dL Est GFR ( Amer) > 60 (> 60) Est GFR (Non-Af Amer) 56 L (> 60) BUN/Creatinine Ratio 12 (6-26) Glucose 114 H (70-105) mg/dL Calculated Osmolality 281 (280-300) Calcium 9.7 (8.6-10.3) mg/dL Troponin I < 0.03 (< 0.04) ng/mL Attestation Statement - Attestation Attestation: I examined this patient and my medical decision-making was reviewed with the Resident Physician. I agree with the documented findings, disposition and treatment plan as described except to the extent set forth below. Patient presents to the emergency Department chief complaint of chest pain. Left-sided. Radiating into her arm and into her neck. History of CO and states this feels similar. Started while she was frying chicken. He took a nitroglycerin with no relief. She is in no acute distress on examination. Heart regular rate and rhythm lungs are clear. Plan. EKG does not show any acute ischemic changes. She has one new T-wave inversion. Neck workup and likely admission. Workup negative. Admitted for further cardiac workup.
[2018-08-28 19:12] LABS: INR 1.2
[2018-08-28 19:24] LABS: Troponin I < 0.03 ng/mL (< 0.04)
[2018-08-28 19:52] LABS: BUN/Creatinine Ratio 12 (6-26); Blood Urea Nitrogen 12 mg/dL (8-23); Calcium 9.7 mg/dL (8.6-10.3); Carbon Dioxide 27 mEq/L (23-29); Chloride 101 mEq/L (98-107); Glucose 114 mg/dL (70-105); Osmolality,Calculated 281 (280-300); Potassium 4.3 mEq/L (3.5-5.1); Sodium 135 mEq/L (136-145); eGFR For Non-African Americans 56 (> 60)
[2018-08-28] MEDS ORDERED: Naloxone 0.4 MG/ML INJ IVP PRN (20:23)
[2018-08-28] MEDS ORDERED: Hyoscyamine SL 0.125 MG TAB.SUBL SL PRN (20:24)
--- NOTE | 2018-08-28 20:34 | Internal Med History&Physical ---
Date of Encounter: 08/28/18 Time of Encounter: 20:32 Internal Medicine - H&P: HPI Chief complaint: Chest pain Admitted From: Emergency Dept Plans for Post Hospital Care: Home History of present illness: Ms. Renner is a 72 year old female with history of coronary artery disease status post PCI and coronary stents , hyperlipidemia, hypertension who presents with complaints of chest pain that has been going on and off since about 5 PM while she was before supper. She is also been dealing with a productive cough for the last week or so. No fevers reported. The patient has had a negative stress test October 2016. She says the chest pain is about 6 out of 10 feels like pressure on the left side with radiation down her arm on the left side as well. No diaphoresis or dizziness. She reports shortness of breath with that as well as feeling nauseous. She vomited once. 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 In the ED she was hemodynamically stable and had laboratory workup as well as an EKG. EKG showed no acute ST or T-wave changes. Labs were mostly unremarkable. Chest x-ray showed possible perihilar infiltrate. She was not given antibiotics in the ED. Her chest pain did improve with nitroglycerin in the ED. Denies any headache, blurry vision, rashes, abdominal pain, diarrhea, constipation, urinary symptoms, or neurological symptoms. Past Med Surg Social Fam HX - Past Medical History Medical history: hypertension, other Additional medical history: osterarthritis, gallstones Psychiatric history: no psych history - Past Surgical History Surgical History: angioplasty/stent, breast surgery, cholecystectomy, hysterectomy, knee replacement, other Additional surgical history: cardiac stents x 2. bilat knee replacements - Social History Smoking Status: 2nd Hand Smoke Exposure Smokeless Tobacco Status: No Alcohol use: none Drug use: none - Family History Mother Living Status: Hx Family Cardiac Disorders: Yes Father Living Status: Hx Family Cardiac Disorders: Yes Sister Living Status: Still Living Brother Living Status: Still Living Hx Family Cardiac Disorders: Yes Internal Medicine - H&P: Meds Atorvastatin [Lipitor] 40 mg PO DAILY 06/07/15 [History] Carvedilol [Coreg] 25 mg PO BID 06/07/15 [History] Clopidogrel [Plavix] 75 mg PO QAM 06/07/15 [History] Ezetimibe [Zetia] 10 mg PO QAM 06/07/15 [History] Nitroglycerin 0.4 mg SL AD PRN 06/07/15 [History] Ranitidine HCl [Zantac] 150 mg PO BID 06/07/15 [History] Losartan Potassium [Cozaar] 50 mg PO DAILY 12/20/15 [History] Ondansetron ODT [Zofran ODT] 4 mg SL Q6HR PRN #7 tab.rapdis 07/31/18 [Rx] Hyoscyamine SL [Levsin SL] 0.125 mg SL TID PRN 08/28/18 [History] Allergy/AdvReac Type Severity Reaction Status Date / Time No Known Allergies Allergy Verified 08/28/18 18:39 All Systems PM: A 10-system review of systems was performed and is negative for pertinent findings except as documented above in the HPI. Review of systems: All systems reviewed are negative except as mentioned above - Constitutional Vitals: Temp Pulse Resp BP Pulse Ox 98.4 F 76 20 95/50 98 08/28/18 18:42 08/28/18 19:12 08/28/18 19:12 08/28/18 19:12 08/28/18 19:12 Exam: GEN: NAD HEENT: AT, NC, No cyanosis, oral mucosa is moist, No JVD Lymphatics: No lymphadenoapthy Eyes: Extrocular muscles intact, anicteric CVS:RRR. S1, S2, No m/r/g RESP: CTAB ABD: Soft, NT, ND, +BS EXT: No edema, No rashes, 2+ DP NEURO: Nonfocal, CN II-XII intact, No focal motor or sensory deficits Psych: Cooperative, Not anxious or depressed Internal Med - H&P Results - Labs CBC & Chem 7: 08/28/18 18:37 08/28/18 18:37 Labs: Short CBC 08/28/18 Range/Units 18:37 WBC 6.3 (4.3-11.1) K/mcL Hgb 9.7 L (11.5-15.4) g/dL Hct 30.3 L (35.3-44.9) % Plt Count 211 (140-400) K/mcL Neutrophils # 3.9 (1.6-8.9) K/mcL BMP 08/28/18 18:37 Sodium 135 L Potassium 4.3 Chloride 101 Carbon Dioxide 27 BUN 12 Creatinine 0.98 Glucose 114 H Calcium 9.7 Cardiac Enzymes 08/28/18 Range/Units 18:37 Troponin I < 0.03 (< 0.04) ng/mL - Impressions ITS Impressions Chest X-Ray 08/28/18 18:30 IMPRESSION: Mild perihilar opacity. Finding could represent asymmetric edema or multifocal infection. D/ / Tiago Black MD / Tiago Black MD Interpreting Provider: Tiago Black MD - Assessment and plan (1) Chest pain Current Visit: Yes Status: Acute Assessment and plan: Admit to telemetry. Trend cardiac enzymes. NPO after midnight. Stress test in the morning. She was given aspirin and sublingual nitroglycerin in the ED. We will continue insulin with nitroglycerin. Check hemoglobin A1c and lipid panel. Qualifiers: Chest pain type: unspecified Qualified Code(s): R07.9 - Chest pain, unspecified (2) Cough Current Visit: Yes Status: Acute Assessment and plan: There is infiltrate on the chest x-ray and she reports a cough that is productive. We will rule out the flu. Check sputum. Check urine strep and Legionella. We will put her on oral Levaquin she will possibly need 5 days of treatment. She is not requiring any oxygen at the moment. (3) CAD (coronary artery disease) Current Visit: No Status: Chronic Assessment and plan: Continue home cardiac meds Qualifiers: Coronary Disease-Associated Artery/Lesion type: [place] artery [place] vs. transplanted heart: [place] heart Associated angina: without angina Qualified Code(s): I25.10 - Atherosclerotic heart disease of [place] coronary artery without angina pectoris (4) GERD (gastroesophageal reflux disease) Current Visit: No Status: Chronic Assessment and plan: Continue home meds Qualifiers: Esophagitis presence: without esophagitis Qualified Code(s): K21.9 - Gastro-esophageal reflux disease without esophagitis (5) Hypertension Current Visit: No Status: Chronic Assessment and plan: Continue home meds Qualifiers: Hypertension type: essential hypertension Qualified Code(s): I10 - Essential (primary) hypertension (6) DVT prophylaxis Current Visit: Yes Status: Acute Assessment and plan: Heparin subcutaneous - Time Spent With Patient Total time spent is greater than 50% in coordination of care (as documented) at patient's floor/unit and/or counseling patient:
[2018-08-28] MEDS: levoFLOXacin 750 MG TABLET PO SCH (21:56)
[2018-08-28] MEDS: Famotidine 20 MG TABLET PO SCH (21:56)
[2018-08-28] MEDS: *HR* Heparin 5,000 UNIT/ML VIAL SQ SCH (21:56)
[2018-08-29] MEDS: *HR* Heparin 5,000 UNIT/ML VIAL SQ SCH ×3 (05:02→20:16)
[2018-08-29] MEDS ORDERED: Regadenoson 0.4 MG/5 ML SYRINGE IVP ONE (06:06)
[2018-08-29 07:11] LABS: Basophils % 0.7 %; Eosinophils # 0.2 K/mcL (0.0-0.6); Eosinophils % 4.1 %; Hematocrit 31.9 % (35.3-44.9); Hemoglobin 9.8 g/dL (11.5-15.4); Immature Granulocytes % 0.2 % (0-4); Lymphocytes # 1.2 K/mcL (0.6-4.6); Lymphocytes % 26.6 %; Mean Corpuscular HGB Conc 30.7 g/dL (31.6-35.5); Mean Corpuscular Hemoglobin 27.6 pg (28.0-33.3); Mean Corpuscular Volume 89.9 fL (83.0-100.0); Mean Platelet Volume 10.5 fL (9.4-12.4); Monocytes # 0.5 K/mcL (0.0-1.3); Monocytes % 11.9 %; Neutrophils # 2.5 K/mcL (1.6-8.9); Platelet Count 189 K/mcL (140-400); Red Blood Count 3.55 M/mcL (3.82-4.97); Red Cell Distribution Width 12.9 % (11.5-14.5); Segmented Neutrophils % 56.5 %
[2018-08-29 07:30] LABS: BUN/Creatinine Ratio 12 (6-26); Blood Urea Nitrogen 11 mg/dL (8-23); Calcium 9.7 mg/dL (8.6-10.3); Carbon Dioxide 29 mEq/L (23-29); Chloride 104 mEq/L (98-107); Chol/HDL Ratio 4.8 (0-4.9); Cholesterol 217 mg/dL (< 200); Glucose 104 mg/dL (70-105); HDL Cholesterol 45 mg/dL (40-59); LDL Cholesterol,Calculated 155 mg/dL (0-99); Osmolality,Calculated 288 (280-300); Potassium 4.1 mEq/L (3.5-5.1); Sodium 139 mEq/L (136-145); Triglycerides 87 mg/dL (< 150); eGFR For Non-African Americans > 60 (> 60)
[2018-08-29 09:27] LABS: Estimated Average Glucose 123 mg/dl; Hemoglobin A1C 5.9 %
[2018-08-29] MEDS: Famotidine 20 MG TABLET PO SCH ×2 (11:00→20:16)
[2018-08-29] MEDS: (Ezetimibe [Zetia] 10 MG) PO SCH (11:02)
--- NOTE | 2018-08-29 11:57 | Internal Med Progress Note ---
Hospitalist Progress Note - Encounter Date of Encounter: 08/29/18 Time of Encounter: 11:54 - Subjective Interval History: 72-year-old man female with past medical history of CAD status post stent placement presented with abrupt onset of chest pain. Underwent a stress test this morning which revealed moderate ischemic change at inferolateral wall. Patient still reported on and off chest pain, relieved partially by nitroglycerin. She also reported syncope yesterday prior to admission. She has no fever, chills, or night sweats. She denies shortness breath, cough, or palpitation. - Exam Vitals: Temp Pulse Resp BP Pulse Ox 98.0 F 68 14 148/78 99 08/29/18 03:46 08/29/18 03:46 08/29/18 03:46 08/29/18 03:46 08/29/18 03:46 Exam: PHYSICAL EXAMINATION: GENERAL APPEARANCE: The patient is alert, oriented and in no acute distress. HEENT: Head is normocephalic. The sinuses are nontender. Pupils are equal and reactive. The nares are patent. Oropharynx clear without lesions. NECK: Supple without lymphadenopathy. HEART: Regular rate and rhythm. LUNGS: No crackles or wheezes are heard. ABDOMEN: Soft, nontender, nondistended with good bowel sounds heard. Inguinal area is normal. EXTREMITIES: Without cyanosis, clubbing or edema. NEUROLOGICAL: Gross nonfocal. SKIN: Warm and dry without any rash. - Assessment and Plan (1) Chest pain Current Visit: Yes Status: Acute Assessment and Plan: EKG at the ED showed no acute ST-T change, troponin was negative 3, however, stress test performed this morning revealed moderate ischemic change at inferior and lateral wall. Patient received aspirin and Plavix already. Continue manage CV risk factors including hypertension, nitroglycerin as needed for chest pain. Echocardiogram ordered. Cardiology consult. (2) CAD (coronary artery disease) Current Visit: No Status: Chronic Assessment and Plan: Continue home cardiac meds, abnormal stress test result revealed. pending echocardiogram, cardiology consult. (3) GERD (gastroesophageal reflux disease) Current Visit: No Status: Chronic Assessment and Plan: Continue home meds (4) Hypertension Current Visit: No Status: Chronic Assessment and Plan: Continue home meds (5) Cough Current Visit: Yes Status: Acute Assessment and Plan: There is infiltrate on the chest x-ray and she reports a cough that is productive. We will rule out the flu. Check sputum. Check urine strep and Legionella. We will put her on oral Levaquin she will possibly need 5 days of treatment. She is not requiring any oxygen at the moment. (6) DVT prophylaxis Current Visit: Yes Status: Acute Assessment and Plan: Heparin subcutaneous - Time Spent with Patient Total time spent is greater than 50% in coordination of care (as documented) at patient's floor/unit and/or counseling patient: Greater than 35 minutes Plan of Care Discussed with: patient Internal Medicine: Result - Labs CBC & Chem 7: 08/29/18 06:43 08/29/18 06:43 Labs: Short CBC 08/28/18 08/29/18 Range/Units 18:37 06:43 WBC 6.3 4.4 (4.3-11.1) K/mcL Hgb 9.7 L 9.8 L (11.5-15.4) g/dL Hct 30.3 L 31.9 L (35.3-44.9) % Plt Count 211 189 (140-400) K/mcL Neutrophils # 3.9 2.5 (1.6-8.9) K/mcL BMP 08/28/18 08/29/18 18:37 06:43 Sodium 135 L 139 Potassium 4.3 4.1 Chloride 101 104 Carbon Dioxide 27 29 BUN 12 11 Creatinine 0.98 0.90 Glucose 114 H 104 Calcium 9.7 9.7 Cardiac Enzymes 08/28/18 08/29/18 08/29/18 Range/Units 18:37 00:04 06:43 Troponin I < 0.03 < 0.03 < 0.03 (< 0.04) ng/mL - ABG Interpretation ABG results: PT/INR, D-dimer PT 14.0 Seconds (9.4-12.1) H 08/28/18 18:37 - Impressions Impressions Chest X-Ray 08/28/18 18:30 IMPRESSION: Mild perihilar opacity. Finding could represent asymmetric edema or multifocal infection. D/ / Tiago Black MD / Tiago Black MD Interpreting Provider: Tiago Black MD Consult Discharge Plan - Plan Referrals: BernardoMo MD [Primary Care Provider] - (1) Chest pain Qualifiers: Chest pain type: unspecified Qualified Code(s): R07.9 - Chest pain, unspecified (2) CAD (coronary artery disease) Qualifiers: Coronary Disease-Associated Artery/Lesion type: [place] artery [place] vs. transplanted heart: [place] heart Associated angina: without angina Qualified Code(s): I25.10 - Atherosclerotic heart disease of [place] coronary artery without angina pectoris (3) GERD (gastroesophageal reflux disease) Qualifiers: Esophagitis presence: without esophagitis (4) Hypertension Qualifiers: Hypertension type: essential hypertension Qualified Code(s): I10 - Essential (primary) hypertension
--- NOTE | 2018-08-29 15:42 | Cardiology Consult Note ---
<Alka Velez - Last Filed: 08/29/18 15:39> Date of Encounter: 08/29/18 Time of Encounter: 15:00 Assessment and Plan (1) Chest pain Current Visit: Yes Status: Acute Per cardiology: -Presents with angina. Denies current chest pain. -Troponins negative. -ECG unchanged from baseline. -Stress test abnormal. -TTE pending. -Remote history of PCI, last [facility] 12/2015 with mild CAD. -On asa, statin, BB, plavix. -of note, hemoglobin decreased from baseline. -Recommend [facility] when able. See anemia. Qualifiers: Chest pain type: unspecified Qualified Code(s): R07.9 - Chest pain, uns pecified (2) Anemia Current Visit: Yes Status: Acute Per cardiology: -Hemoglobin noted to be decreased from baseline. -Reports dark stools, states on iron supplements, however states has also noted bright red blood per rectum. -Per family, patient had similar issues previously and had colon cancer? -Recommend anemia work up. Recommend GI consult. -Management per primary service. Qualifiers: Anemia type: unspecified type Qualified Code(s): D64.9 - Anemia, unspeci fied Discussion w patient/family: The assessment and plan as outlined above was discussed with the patient and/or family members who expressed understanding and agreement. All questions were answered. Thank you for involving us in the care of your patient. Please call wi th any questions. Discussed and reviewed with History of Present Illness Consult date: 08/29/18 Requesting physician: Oc Odell Consult reason: chest pain Chief complaint: chest pain History of present illness: Ms. Renner is a 72 year old female with a relevant past medical history of CAD s/p PCI, ID, HTN, tobacco abuse, GERD, HLD, anemia, reported remote colon cancer who presented to [facility] with complaints of chest pain. Patient states she was up walking around kitchen when she had sudden onset of left sided chest pain that radiated to left arm. Patient reports associated shortness of breath, nausea, vomiting. Also reports increased weakness. Patient states she took 2 nitro at home without relief so she presented to [facility]. Patient denies current chest pain. Past Med Surg Social Fam HX - Past Medical History Attestation: Yes The following information was validated with the patient. Source: patient, old records reviewed, obtained from family Medical history: coronary artery disease, hyperlipidemia, hypertension, bhaskar cardial infarction, other Additional medical history: osterarthritis, gallstones Psychiatric history: no psych history - Past Surgical History Surgical History: angioplasty/stent, breast surgery, cholecystectomy, hysterectomy, knee replacement, other Additional surgical history: cardiac stents x 2. bilat knee replacements - Social History Smoking Status: 2nd Hand Smoke Exposure Smokeless Tobacco Status: No Alcohol use: none Drug use: none - Family History Mother Living Status: Hx Family Cardiac Disorders: Yes Father Living Status: Hx Family Cardiac Disorders: Yes Sister Living Status: Still Living Brother Living Status: Still Living Hx Family Cardiac Disorders: Yes Medications and Allergies Atorvastatin [Lipitor] 40 mg PO DAILY 06/07/15 [History] Carvedilol [Coreg] 25 mg PO BID 06/07/15 [History] Clopidogrel [Plavix] 75 mg PO QAM 06/07/15 [History] Ezetimibe [Zetia] 10 mg PO QAM 06/07/15 [History] Nitroglycerin 0.4 mg SL AD PRN 06/07/15 [History] Ranitidine HCl [Zantac] 150 mg PO BID 06/07/15 [History] Losartan Potassium [Cozaar] 50 mg PO DAILY 12/20/15 [History] Ondansetron ODT [Zofran ODT] 4 mg SL Q6HR PRN #7 tab.rapdis 07/31/18 [Rx] Hyoscyamine SL [Levsin SL] 0.125 mg SL TID PRN 08/28/18 [History] Allergy/AdvReac Type Severity Reaction Status Date / Time No Known Allergies Allergy Verified 08/28/18 18:39 All Systems Review: The remainder of the systems were reviewed and are negative - Cardiovascular Cardiovascular: as per HPI, chest pain with exertion, dyspnea on exertion Physical Examination Vital Signs, Last 4 Hours Temp Pulse Resp BP Pulse Ox 08/29/18 15:28 97.7 F 68 16 134/70 95 08/29/18 12:22 97.7 F 66 16 119/67 96 General: Conversant, No Apparent Distress HEENT: Atraumatic, Normocephaly, Mucus Membranes Moist Neck: No JVD, Normal carotid pulses Cardiac: Reg Rate and Rhythm, Normal S1 and S2, No Murmur Lungs: Normal Breath Sounds, No Wheeze, Rales, Rhonchi Neuro: Alert and responsive, No focal deficits noted Abdomen: Soft, Non-Tender Skin: No rashes noted on visualized skin Musculoskeletal: No Chest Wall Tenderness Extremities: No Clubbing, No Cyanosis, No Edema, Normal Pulses Results 08/29/18 06:43 08/29/18 06:43 Lab Results Impressions Chest X-Ray 08/28/18 18:30 IMPRESSION: Mild perihilar opacity. Finding could represent asymmetric edema or multifocal infection. D/ / Tiago Black MD / Tiago Black MD Interpreting Provider: Tiago Black MD Active Medications Acetaminophen (Tylenol) 650 mg PO Q6HR PRN PRN Reason: Mild Pain/Fever Stop: 02/27/19 20:24 Atorvastatin Calcium (Lipitor) 40 mg PO DAILY [facility] Stop: 02/28/19 09:01 Last Admin: 08/29/18 11:01 Dose: 40 mg Carvedilol (Coreg) 25 mg PO BIDWM [facility]; Protocol Stop: 02/27/19 21:01 Last Admin: 08/29/18 11:01 Dose: 25 mg Clopidogrel Bisulfate (Plavix) 75 mg PO QAM [facility] Stop: 02/28/19 09:01 Last Admin: 08/29/18 11:01 Dose: 75 mg Famotidine (Pepcid) 10 mg PO BID [facility] Stop: 02/27/19 21:01 Last Admin: 08/29/18 11:00 Dose: 10 mg Heparin Sodium (Porcine) (Heparin) 5,000 unit SQ Q8HCO [facility] Stop: 02/27/19 22:01 Last Admin: 08/29/18 14:49 Dose: Not Given Hyoscyamine (Levsin Sl) 0.125 mg SL TID PRN PRN Reason: stomach pain Stop: 02/27/19 20:25 Levofloxacin (Levaquin) 750 mg PO Q48H [facility] Stop: 02/27/19 21:01 Last Admin: 08/28/18 21:56 Dose: 750 mg Losartan Potassium (Cozaar) 50 mg PO DAILY [facility] Stop: 02/28/19 09:01 Last Admin: 08/29/18 11:01 Dose: 50 mg Naloxone HCl (Narcan) 0.4 mg IVP Q2MIN PRN PRN Reason: SEE COMMENTS Stop: 02/27/19 20:24 Pharmacy Profile Note (Patient Taking Own Medication) 1 each PO QAM [facility] Stop: 02/28/19 09:01 Last Admin: 08/29/18 11:02 Dose: Not Given Laboratory Tests 07/31/18 08/06/18 08/28/18 12:12 14:17 18:37 Hgb 12.1 11.0 L 9.7 L Creatinine Troponin I 08/28/18 08/29/18 08/29/18 18:37 00:04 06:43 Hgb 9.8 L Creatinine Troponin I < 0.03 < 0.03 08/29/18 08/29/18 06:43 06:43 Hgb Creatinine 0.90 Troponin I < 0.03 - Imaging and Cardiology Chest Xray: report reviewed Stress Test: report reviewed Echo: pending - EKG Interpretation EKG results cardiology: personally reviewed (ECG with SR, non-specific T wave abnormalities noted, similar to previous.), other (Telemetry reviewed with average HR previous 12 hours noted to be 75, SR, PVCs, PACS noted.) Consult Discharge Plan - Plan Referrals: [facility] [place],Mo Palomo MD [Primary Care Provider] - <Ever Adams - Last Filed: 08/29/18 17:58> Date of Encounter: 08/29/18 - Attending Attestation Patient was seen and evaluated independently by me. Findings, assessment and plan were discussed at length with patient, questions answered. Agree with nurse practitioner's/resident's documentation. Addition as follows, 72yoCF ho remote PCI, colon Ca?/polyps, HTN, smoking, anemia. P/w typical exertional angina. No dynamic ECG, neg trop, but SPECT + moderate inferolateral ischemia. TTE preserved EF, mod-sever . Meanwhile Hb lower than baseline with recent BRBPR and melena. No recurrent cp after admission. On plavix, BB, statin. HD stable,CTA,, RR, S1/P2,3/6 SM R-2nd ICS, NT, no LE edema A: CAD, exertional angina, no angina at rest, moderate inferolateral ischemia on SPECT; will need LHC w/ possible PCI vs CABG/AVR Moderate to severe , no ho syncope, CHF acute on chronic anemia, r/o GIB P: GI consult r/o active GIB LH w/ possible PCI after clear from GIB will decide on PCI only or CABG with AVR on LHC c/w plavix, statin, BB start ASA 81 daily if recurrent cp, NTG, ECG, troponin and start heparin drip with Hb check q12 hrs Ever Adams MD, PhD Assessment and Plan Discussion w patient/family: The assessment and plan as outlined above was discussed with the patient and/or family members who expressed understanding and agreement. All questions were answered. Thank you for involving us in the care of your patient. Please call with any questions. History of Present Illness History of present illness: Ms. Renner is a 72 year old female All Systems Review: The remainder of the systems were reviewed and are negative Physical Examination Vital Signs, Last 4 Hours Temp Pulse Resp BP Pulse Ox 08/29/18 15:28 97.7 F 68 16 134/70 95 Results 08/29/18 06:43 08/29/18 06:43 Lab Results 08/28/18 08/28/18 08/28/18 18:37 18:37 18:37 WBC 6.3 Hgb 9.7 L Hct 30.3 L Plt Count 211 INR 1.2 Sodium 135 L Potassium 4.3 Chloride 101 Carbon Dioxide 27 BUN 12 Creatinine 0.98 Glucose 114 H Calcium 9.7 Magnesium Troponin I < 0.03 08/29/18 08/29/18 08/29/18 00:04 06:43 06:43 WBC 4.4 Hgb 9.8 L Hct 31.9 L Plt Count 189 INR Sodium 139 Potassium 4.1 Chloride 104 Carbon Dioxide 29 BUN 11 Creatinine 0.90 Glucose 104 Calcium 9.7 Magnesium 2.0 Troponin I < 0.03 08/29/18 06:43 WBC Hgb Hct Plt Count INR Sodium Potassium Chloride Carbon Dioxide BUN Creatinine Glucose Calcium Magnesium Troponin I < 0.03
[2018-08-30] MEDS: Acetaminophen 325 MG TABLET PO PRN (05:50)
[2018-08-30] MEDS: *HR* Heparin 5,000 UNIT/ML VIAL SQ SCH ×3 (05:51→20:27)
[2018-08-30 06:07] LABS: Basophils % 0.7 %; Eosinophils # 0.2 K/mcL (0.0-0.6); Eosinophils % 4.6 %; Hematocrit 33.2 % (35.3-44.9); Hemoglobin 10.6 g/dL (11.5-15.4); Immature Granulocytes % 0.2 % (0-4); Lymphocytes # 1.4 K/mcL (0.6-4.6); Lymphocytes % 31.9 %; Mean Corpuscular HGB Conc 31.9 g/dL (31.6-35.5); Mean Corpuscular Hemoglobin 28.6 pg (28.0-33.3); Mean Corpuscular Volume 89.7 fL (83.0-100.0); Mean Platelet Volume 10.5 fL (9.4-12.4); Monocytes # 0.5 K/mcL (0.0-1.3); Monocytes % 11.5 %; Neutrophils # 2.3 K/mcL (1.6-8.9); Platelet Count 194 K/mcL (140-400); Red Cell Distribution Width 12.8 % (11.5-14.5); Segmented Neutrophils % 51.1 %
[2018-08-30] MEDS: Famotidine 20 MG TABLET PO SCH ×2 (08:27→20:27)
[2018-08-30] MEDS: (Ezetimibe [Zetia] 10 MG) PO SCH (08:28)
--- NOTE | 2018-08-30 11:23 | Cardiology Progress Note ---
Date of Encounter: 08/30/18 Time of Encounter: 09:30 Assessment and Plan (1) Anemia Current Visit: Yes Status: Acute Per cardiology: -Hemoglobin noted to be decreased from baseline. -Reports dark stools, states on iron supplements, however states has also noted bright red blood per rectum. -Per family, patient had similar issues previously and had colon cancer? -Recommend anemia work up. Recommend GI consult. -Management per primary service. Qualifiers: Anemia type: unspecified type Qualified Code(s): D64.9 - Anemia, unspecified (2) Chest pain Current Visit: Yes Status: Acute Patient presents with anginal symptoms. Stress test completed and shows moderate inferior lateral ischemia. LHC as recommended for further evaluation of ischemia and moderate to severe . Troponins are negative. Noted that he met globin was decreased from baseline. Would recommend GI evaluation prior to LHC. Plan for LHC when able from anemia standpoint. Continue aspirin, statin, beta rosalio, and Plavix. We will start aspirin today. Qualifiers: Chest pain type: unspecified Qualified Code(s): R07.9 - Chest pain, unspecified (3) Aortic stenosis Current Visit: Yes Status: Acute TTE reveals moderate to severe . Patient pending LHC during hospital stay. Qualifiers: Cardiac valve disease etiology: etiology unspecified Qualified Code(s): I35.0 - Nonrheumatic aortic (valve) stenosis (4) CAD (coronary artery disease) Current Visit: No Status: Chronic History of mild CAD and prior LHC. Pending repeat LHC for abnormal stress test and angina. Qualifiers: Coronary Disease-Associated Artery/Lesion type: [place] artery [place] vs. transplanted heart: [place] heart Associated angina: without angina Qualified Code(s): I25.10 - Atherosclerotic heart disease of [place] coronary artery without angina pectoris Discussion w patient/family: The assessment and plan as outlined above was discussed with the patient and/or family members who expressed understanding and agreement. All questions were answered. Thank you for involving us in the care of your patient. Please call with any questions. Subjective Principal diagnosis: Chest pain, abnormal stress test, anemia Interval history: No new complaints overnight. Objective Vital Signs, Last 4 Hours Temp Pulse Resp BP Pulse Ox 08/30/18 07:38 97.8 F 57 21 146/72 95 General: Conversant, No Apparent Distress HEENT: Atraumatic, Normocephaly, Mucus Membranes Moist Neck: No JVD, Normal carotid pulses Cardiac: Reg Rate and Rhythm, Normal S1 and S2, No Murmur Lungs: Normal Breath Sounds, No Wheeze, Rales, Rhonchi Neuro: Alert and responsive, No focal deficits noted Abdomen: Soft, Non-Tender Skin: No rashes noted on visualized skin Musculoskeletal: No Chest Wall Tenderness Extremities: No Clubbing, No Cyanosis, No Edema, Normal Pulses Results 08/30/18 05:40 08/29/18 06:43 Lab Results 08/30/18 05:40 WBC 4.5 Hgb 10.6 L Hct 33.2 L Plt Count 194 - Imaging and Cardiology Stress Test: report reviewed Echo: report reviewed - EKG Interpretation EKG results cardiology: personally reviewed Consult Discharge Plan - Plan Referrals: Mo Chang MD [Primary Care Provider] -
--- NOTE | 2018-08-30 11:34 | Internal Med Progress Note ---
Hospitalist Progress Note - Encounter Date of Encounter: 08/30/18 Time of Encounter: 11:32 - Subjective Interval History: 72-year-old man female with past medical history of CAD status post stent placement presented with abrupt onset of chest pain. Underwent a stress test this morning which revealed moderate ischemic change at inferolateral wall. Patient still reported on and off chest pain, relieved partially by nitroglycerin. She also reported syncope yesterday prior to admission. She has no fever, chills, or night sweats. She denies shortness breath, cough, or palpitation. - Exam Vitals: Temp Pulse Resp BP Pulse Ox 97.8 F 57 21 146/72 95 08/30/18 07:38 08/30/18 07:38 08/30/18 07:38 08/30/18 07:38 08/30/18 07:38 Exam: PHYSICAL EXAMINATION: GENERAL APPEARANCE: The patient is alert, oriented and in no acute distress. HEENT: Head is normocephalic. The sinuses are nontender. Pupils are equal and reactive. The nares are patent. Oropharynx clear without lesions. NECK: Supple without lymphadenopathy. HEART: Regular rate and rhythm. LUNGS: No crackles or wheezes are heard. ABDOMEN: Soft, nontender, nondistended with good bowel sounds heard. Inguinal area is normal. EXTREMITIES: Without cyanosis, clubbing or edema. NEUROLOGICAL: Gross nonfocal. SKIN: Warm and dry without any rash. - Assessment and Plan (1) Chest pain Current Visit: Yes Status: Acute Assessment and Plan: EKG at the ED showed no acute ST-T change, troponin was negative 3, however, stress test performed this morning revealed moderate ischemic change at inferior and lateral wall. Patient received aspirin and Plavix already. Continue manage CV risk factors including hypertension, nitroglycerin as needed for chest pain. TTE performed and showed EF 65%, normal LV function, mod-severe . Pt has chronic anemia but has no evidence of active bleeding, Hgb is stable at the baseline. Stool occult blood test pending. Continue aspirin and Plavix. cardiology consulted, appreciate help. (2) CAD (coronary artery disease) Current Visit: No Status: Chronic Assessment and Plan: Continue home cardiac meds, abnormal stress test result revealed. cardiology following. (3) GERD (gastroesophageal reflux disease) Current Visit: No Status: Chronic Assessment and Plan: Continue home meds (4) Hypertension Current Visit: No Status: Chronic Assessment and Plan: Continue home meds (5) Cough Current Visit: Yes Status: Resolved (6) Anemia Current Visit: No Status: Chronic Assessment and Plan: Pt has chronic anemia, reported recent black stool and bright red bloody stool. will order stool for occult blood test. Hgb stable at baseline. (7) DVT prophylaxis Current Visit: Yes Status: Acute Assessment and Plan: Heparin subcutaneous - Time Spent with Patient Total time spent is greater than 50% in coordination of care (as documented) at patient's floor/unit and/or counseling patient: Greater than 35 minutes Plan of Care Discussed with: patient Internal Medicine: Result - Labs CBC & Chem 7: 08/30/18 05:40 08/29/18 06:43 Labs: Short CBC 08/30/18 Range/Units 05:40 WBC 4.5 (4.3-11.1) K/mcL Hgb 10.6 L (11.5-15.4) g/dL Hct 33.2 L (35.3-44.9) % Plt Count 194 (140-400) K/mcL Neutrophils # 2.3 (1.6-8.9) K/mcL - ABG Interpretation ABG results: PT/INR, D-dimer PT 14.0 Seconds (9.4-12.1) H 08/28/18 18:37 - Impressions Impressions Echocardiogram 08/29/18 11:51 Impressions: LVEF 65%. Normal LV chamber size, wall thickness and systolic function. Mild left ventricular diastolic dysfunction. Normal right ventricular structure and function. Moderate-severe aortic stenosis. Mild aortic regurgitation. Mild mitral regurgitation. Mild tricuspid regurgitation. No pulmonary hypertension. Left Ventricular Wall Motion: Rest Echo Findings All wall segments showed normal motion. Findings: Study Quality * Technically adequate exam. ECG Findings * Normal sinus rhythm. Left Ventricle * LVEF 65%. * Normal LV chamber size, wall thickness and systolic function. * Mild left ventricular diastolic dysfunction. Right Ventricle * Normal right ventricular structure and function. Left Atrium * Normal left atrial size. Right Atrium * Normal right atrial size. Interatrial Septum * No evidence of PFO by color Doppler. * Interatrial septum not well evaluated. Aortic Valve * Severely calcified aortic valve leaflets. * Moderate-severe aortic stenosis. * Mild aortic regurgitation. Mitral Valve * Normal mitral valve structure. * No mitral stenosis. * Mild mitral regurgitation. Tricuspid Valve * Normal tricuspid valve structure. * No tricuspid stenosis. * Mild tricuspid regurgitation. * No pulmonary hypertension. * Estimated RA pressure is 5 mmHg. * Estimated RVSP is 36 mmHg. Pulmonic Valve * Pulmonic valve is not well visualized. * No pulmonic stenosis. * No pulmonic regurgitation. Aorta * Normally sized aortic root. Pericardium * The pericardium appears normal. IVC * Normal IVC dimensions and inspiratory collapse. Consult Discharge Plan - Plan Referrals: Bernardo,Mo Palomo MD [Primary Care Provider] - (1) Chest pain Qualifiers: Chest pain type: unspecified Qualified Code(s): R07.9 - Chest pain, unspecified (2) CAD (coronary artery disease) Qualifiers: Coronary Disease-Associated Artery/Lesion type: [place] artery [place] vs. transplanted heart: [place] heart Associated angina: without angina Qualified Code(s): I25.10 - Atherosclerotic heart disease of [place] coronary artery without angina pectoris (3) GERD (gastroesophageal reflux disease) Qualifiers: Esophagitis presence: without esophagitis (4) Hypertension Qualifiers: Hypertension type: essential hypertension Qualified Code(s): I10 - Essential (primary) hypertension (6) Anemia Qualifiers: Anemia type: unspecified type Qualified Code(s): D64.9 - Anemia, unspecified
[2018-08-30] MEDS: Aspirin Enteric Coated 81 MG Tablet PO SCH (11:41)
[2018-08-30] MEDS: levoFLOXacin 750 MG TABLET PO SCH (20:27)
[2018-08-31] MEDS: Nitroglycerin 0.4 MG TAB.SUBL SL PRN ×2 (03:22→03:29)
[2018-08-31] MEDS: Acetaminophen 325 MG TABLET PO PRN ×2 (03:29→19:38)
[2018-08-31 05:01] LABS: Basophils # 0.1 K/mcL (0.0-0.2); Basophils % 0.9 %; Eosinophils # 0.2 K/mcL (0.0-0.6); Eosinophils % 4.3 %; Hematocrit 33.4 % (35.3-44.9); Hemoglobin 10.8 g/dL (11.5-15.4); Immature Granulocytes % 0.2 % (0-4); Lymphocytes # 1.3 K/mcL (0.6-4.6); Lymphocytes % 24.4 %; Mean Corpuscular HGB Conc 32.3 g/dL (31.6-35.5); Mean Corpuscular Hemoglobin 28.6 pg (28.0-33.3); Mean Corpuscular Volume 88.6 fL (83.0-100.0); Mean Platelet Volume 10.9 fL (9.4-12.4); Monocytes # 0.5 K/mcL (0.0-1.3); Monocytes % 8.9 %; Neutrophils # 3.2 K/mcL (1.6-8.9); Platelet Count 206 K/mcL (140-400); Red Blood Count 3.77 M/mcL (3.82-4.97); Red Cell Distribution Width 12.9 % (11.5-14.5); Segmented Neutrophils % 61.3 %
[2018-08-31 05:20] LABS: BUN/Creatinine Ratio 14 (6-26); Blood Urea Nitrogen 13 mg/dL (8-23); Calcium 9.4 mg/dL (8.6-10.3); Carbon Dioxide 28 mEq/L (23-29); Chloride 102 mEq/L (98-107); Glucose 110 mg/dL (70-105); Osmolality,Calculated 285 (280-300); Potassium 3.9 mEq/L (3.5-5.1); Sodium 137 mEq/L (136-145); eGFR For Non-African Americans 60 (> 60)
[2018-08-31] MEDS: *HR* Heparin 5,000 UNIT/ML VIAL SQ SCH ×3 (06:01→20:57)
--- NOTE | 2018-08-31 08:53 | Event Note ---
Date of Encounter: 08/31/18 Time of Encounter: 08:51 - Cardiology Event Note Pt stool occult negative. Dark stools likely due to iron supplement. Pt already on asa and plavix and HGB stable. Plan for C later this morning as discussed. Pt agreeable with plan.
[2018-08-31] MEDS ORDERED: Heparin 1,000 UNITS/500 mL 500 ML ONE (08:56)
[2018-08-31] MEDS ORDERED: Nitroglycerin 1,000 MCG/10 ML VIAL IV ONE (08:56)
[2018-08-31] MEDS ORDERED: *HR* Heparin 10,000 UNIT/10 ML VIAL ONE (08:56)
[2018-08-31] MEDS ORDERED: 0.9 % Sodium Chloride 1,000 ML ONE ×2 (08:56→09:03)
[2018-08-31] MEDS ORDERED: ISOVUE-370 200 ML INFUS..BTL ONE (08:56)
[2018-08-31] MEDS: Famotidine 20 MG TABLET PO SCH ×3 (09:10→20:57)
[2018-08-31] MEDS: Aspirin Enteric Coated 81 MG Tablet PO SCH (09:11)
[2018-08-31] MEDS: (Ezetimibe [Zetia] 10 MG) PO SCH (10:53)
--- NOTE | 2018-08-31 11:12 | Pre-Sedation Evaluation ---
Pre-sedation evaluation - Pre-sedation checklist Date of procedure: 08/31/18 Procedure: C Recent Vitals: Last Vital Signs Temp 97.7 F 08/31/18 07:52 Pulse 71 08/31/18 07:52 Resp 16 08/31/18 07:52 BP 154/87 08/31/18 07:52 Pulse Ox 94 08/31/18 09:28 H&P (including ROS) documented in medical record: Yes Previous reaction to sedatives/anesthetics: No Dietary Status: NPO after Midnight Dentition: poor dentition ASA Classification *see protocol: CLASS II-Mild systemic disease Cardiac Registry (Cardio Only) - Functional Capacity Functional Capacity: >=4 METS with symptoms - Clincal Frailty Scale Clinical Frailty Scale: Vulnerable
[2018-08-31] MEDS ORDERED: *HR* FentaNYL (PF) 100 MCG/2 ML VIAL ONE (11:20)
[2018-08-31] MEDS ORDERED: *HR* Midazolam HCl 2 MG/2 ML VIAL ONE (11:20)
--- NOTE | 2018-08-31 11:52 | Event Note ---
Date of Encounter: 08/31/18 Time of Encounter: 11:51 - Cardiology Event Note Discussed with Dr. Diaz, moderate non-obstructive CAD. was not severe range. Medical management recommended. Continue asa and plavix. Discussed with Dr. Torres, with moderate to severe (more moderate range) we will avoid adding daily nitrates. Continue NTG SL PRN. Consider other causes of chest pain. Out pt f/u will be scheduled with Dr. Tavarez out-pt. Cardiology will sign off.
--- NOTE | 2018-08-31 12:02 | Invasive Diagnostic Lab Proc ---
Name: Pepper Renner Date of Study: 08/31/2018 Date: 1945 Ht: 59.0in Medical Record#: [id number] Age: 72 Wt: 147.71lb Gender: Female BSA: 1.62 Order #: [id number] BMI: 29.82 Physicians Procedure Physician: Gal Diaz MD Referring MD: Referring MD: Staff Name Position Time In Jayme Morrissey RT (R) Scrub 11:18 AM Kayla Mays RN Monitor 11:18 AM Garfield Hinds RN Hospice Educator 11:18 AM Procedures Performed Procedure L HRT ARTERY/VENTRICLE ANGIO Pre-Procedure Checklist Informed consent is complete signed and on chart. H&P is on chart. ID band is on and ID verified with patient. Patient NPO for procedure The procedure was described for the patient and questions were answered. Blood Pressure: 154/87 ECG is on chart. Rhythm: NSR Plan of Care Patient will tolerate the procedure without complications. Adequate level of comfort will be maintained. Hemodynamics will remain stable Patient will recover from procedure without complications. Respiratory function will be maintained. Cardiac rhythm will remain stable. Patient temperature will be maintained. Patient and/or family have verbalized understanding of the procedure. Patient Education Intravenous Access Time IV Size Location DC'd Fluid/Drip Rate Units RN 11:34 AM 20g 1 1/4" Patent On Arrival Lt Antecubital 0.9NaCl 25 ml/hr Garfield Hinds RN Allergies No Known Allergies Vital Signs Time BP (mmHg) HR (bpm) O2 Sat. RR (bpm) LOC 11:28 AM 154 / 87 71 94 % 16 5 = Fully awake and oriented or at pre-proc level 11:24 AM 126 / 71 72 96 % 27 11:29 AM 125 / 66 70 92 % 25 11:34 AM 111 / 64 68 99 % 15 11:39 AM 141 / 75 74 99 % 23 11:44 AM 119 / 63 71 100 % 33 11:49 AM 121 / 59 70 100 % 18 Procedural Medications Time Medication Dose Units Method Given By 11:27 AM Oxygen 2 L/min nasal cannula Garfield Hinds RN 11:27 AM Versed 1 mg Intravenous Garfield Hinds RN 11:27 AM Fentanyl 50 mcg Intravenous Garfield Hinds RN 11:31 AM Lidocaine 2% 19 ml Subcutaneous Gal Diaz MD ASA Classification: CLASS II- Mild systemic disease (i.e. well-controlled diabetes, hypertension, asthma, cigarette smoking) Matt Score Preprocedure Postprocedure Activity 2- Moves 4 extremities sustained head lift Activity 2- Moves 4 extremities sustained head lift Circulation 2- SBP +/= 20 points of pre-anesthetic level Circulation 2- SBP +/= 20 points of pre-anesthetic level Consciousness 2- Awake and alert oriented x 3 Consciousness 2- Awake and alert oriented x 3 O2 Saturation 2- Able to maintain O2 satruation of 92% on room air O2 Saturation 2- Able to maintain O2 satruation of 92% on room air Respiratory 2- Able to deep breathe and cough well Respiratory 2- Able to deep breathe and cough well Total Score 10 Total Score 10 Contrast Agent: Isovue Diagnostic Contrast: 48 ml Total Contrast: 48 ml Fluoro Dose: 3104 mGy Procedure Log Time Note Enter By 11:18 AM Pt arrived to finishing lab technician 2 at 11:18 [place] 11:18 AM Jayme Morrissey RT (R) Position: Scrub Time in: 11:18 [place] 11:18 AM Kayla Mays RN Position: Monitor Time in: 11:18 [place] 11:18 AM Garfield Hinds RN Position: Hospice Educator Time in: 11:18 [place] 11:18 AM Patient charges- Angio tray pack, Navilyst 3mm J, Pulse Oximetry and ACIST tubing and transducer [place] 11:19 AM Case Start 11:19 AM CathStat 11:19 AM [ Start or Stop Vital ] 11:21 AM Physician arrived 11:21 [place] 11:21 AM Meet and angel completed [place] 11:21 AM Sign in performed according to hospital policy. Informed consent was obtained. [place] 11:21 AM Procedure start 11:21 [place] 11:23 AM Vitals capture started with the following parameters, Patient=Adult, Interval=5 min, Initial Jnjadtfv=958 mmHg, Deflation Rate=5 mmHg, Cuff placed on Right Arm 11:24 AM HR=72 bpm, HFMO=090/71 mmhg, SpO2=96 %, Resp=27 B/min 11:27 AM Recorded ECG: HR=72 Condition=Condition 1 11: AM Time: : Oxygen on at 2 L/min per nasal cannula by Garfield Hinds RN [place] 11: AM Time: :27 Versed 1 mg Intravenous Given by Garfield Hinds RN [facility] : AM Time: Fentanyl 50 mcg Intravenous Given by Garfield Hinds RN [facility] : AM Time: Patient comfortable and pain free: Yes [place] : AM Time: LOC: 5 = Fully awake and oriented or at pre-proc level [place] 11:29 AM HR=70 bpm, GUOL=030/66 mmhg, SpO2=92.0 %, Resp=25 B/min 11:30 AM Time out was performed according to hospital policy. Conscious sedation and anesthesia was achieved (see medication log with in this report above) [facility] 11:31 AM ASA Class CLASS II- Mild systemic disease (i.e. well-controlled diabetes, hypertension, asthma, cigarette smoking) [facility] : AM Time: 19 ml Lidocaine 2% to right groin Subcutaneous Given by Gal Diaz MD [facility] 11:33 AM Micro-Introducer Kit utilized for sheath placement avis 11:33 AM Access obtained by percutaneous puncture. 6Fr 10cm Terumo [place] sheath placed in right Femoral artery. [id number] avis 11:33 AM 5Fr FR 4 catheter inserted over the wire [facility] 11:33 AM 0.035 145cm Navilyst 3mmJ wire [id number] avis 11:33 AM RCA angiography performed in multiple views. [facility] 11:34 AM HR=68 bpm, FCAB=619/64 mmhg, SpO2=99.0 %, Resp=15 B/min 11:35 AM Catheter removed [facility] 11:35 AM 5Fr FL 4 catheter inserted over the wire [facility] 11:35 AM LCA angiography performed in multiple views. [facility] 11:35 AM Recorded Pressure: Ao, HR=70, Condition=Condition 1 (Aorta) Ao 105/59/79 11:37 AM Recorded Pressure: Ao, HR=75, Condition=Condition 1 (Aorta) Ao 131/69/98 11:39 AM HR=74 bpm, HVWW=922/75 mmhg, SpO2=99.0 %, Resp=23 B/min 11:39 AM Catheter removed [facility] 11:39 AM 5Fr Pigtail catheter inserted over the wire [facility] 11:40 AM Catheter crossed the aortic valve and was selectively placed in the left ventricle. Pressures recorded on pullback for left heart catheterization. avis 11:40 AM Recorded Pressure: LV, HR=73, Condition=Condition 1 (Left Ventricle) LV 164/2/2 11:40 AM Recorded Pressure: LV, Ao, HR=70, Condition=Condition 1 (Left Ventricle) LV 160/-3/3, (Aorta) Ao 108/13/53 11:41 AM Catheter removed [facility] 11:41 AM Bolus angiogram of right Femoral complete: 4 ml/sec for a total of 7 mls [facility] 11:42 AM Procedure completed at 11:41 08/31/2018 [facility] 11:42 AM Sign out completed: Radiation Dose 282 mGy, 3104.12 cGy/cm2 Fluoro Time: 1.5 Isovue 370 - 200ml contrast 48 ml given by Gal Diaz MD. Complications: None. 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 Cardiac Rehab Consult needed: NoConfirmed administered medications: Yes [facility] 11:42 AM Isovue 370 - 200ml,1 Bottle(s) used. [facility] 11:42 AM Arterial sheath pulled, Mynx closure device used and was Successful [id number] S/N. avis 11:42 AM Estimated Blood Loss: minimal [facility] 11:42 AM Post ECG NSR [facility] 11:42 AM Post Blood Pressure 141/75 [facility] 11:43 AM Information taught Cardiac Cath and Mynx avis 11:43 AM Education needs Procedure, Plan of Care, and Disease Process avi 11:43 AM Learning barriers :None avi 11:43 AM Education Methods Verbal [facility] 11:43 AM Education evaluation Able to repeat information [facility] 11:44 AM Opsite applied avi 11:44 AM HR=71 bpm, CJSC=126/63 mmhg, IrH7=782.0 %, Resp=33 B/min 11:44 AM Plavix, Effient or Brilinta given No [facility] 11:44 AM Delay to floor No [facility] 11:44 AM Family placed in consult room. [facility] 11:44 AM Complications: None [facility] 11:44 AM Did you address KWABENA flow and Dominance? Yes avis 11:47 AM Coronary Dominance: Left [facility] 11:47 AM Lesion found in Proximal LAD. Pre Stenosis: 25 Pre KWABENA Flow: 2: Partial Flow/Perfusion (> 1 but < 3) [facility] 11:47 AM Lesion found in Mid LAD. Pre Stenosis: 40 Pre KWABENA Flow: [facility] 11:47 AM Lesion found in Distal Circumflex. Pre Stenosis: 40 Pre KWABENA Flow: [facility] 11:49 AM HR=70 bpm, YQIR=396/59 mmhg, BcL3=497 %, Resp=18 B/min 11:49 AM Report given to Rosey RICHARDSON Pt taken to Room #35. 11:48 [facility] 11:49 AM Proximal Left Anterior Descending Coronary Artery with 25% stenosis. If graft is supplying this territory, 0 % stenosis. [facility] 11:50 AM Mid/Distal Left Anterior Descending Coronary Artery and diagonal branches with 40% stenosis. If graft is supplying this area, 0 % stenosis [facility] 11:50 AM Circumflex, Obtuse Marginal, Left Posterior Descending, and Left Posterolateral Coronary Arteries with 40 % stenosis. If graft is supplying this area, 0 % stenosis [facility] 11:51 AM Site status No bleeding/hematoma - Rt Groin as reported by Jayme Morrissey RT (R) at 11:51 [facility] 11:51 AM Opsite applied [facility] 11:55 AM Patient out of room: 11:55 [facility] Complications Complication None None Hemodynamics Pressures Site Systolic/A Wave Diastolic/V Wave Mean AO 105 59 79 AO 131 69 98 LV 164 2 2 LV 160 -3 3 AO 108 13 53 Post Procedure Information Blood Pressure: 141/75 mmHg Rhythm: NSR Post procedural instructions were given Closure Device Time Device Success/Fail 08/31/2018 11:51:00 AM MynxGrip Successful Site Checks Time Location Status Staff Sheath In? Note 11:51 AM Rt Groin No bleeding/ No Hematoma Jayme Morrissey RT (R) 11:51 AM Rt Groin No bleeding/hematoma Jayme Morrissey RT (R) Pulses Updated by Garfield Hinds RN on 08/31/2018 11:55:47 AM electronically signed on 08/31/2018 11:56:50 AM with status of Final
--- NOTE | 2018-08-31 12:22 | Internal Med Progress Note ---
Hospitalist Progress Note - Encounter Date of Encounter: 08/31/18 Time of Encounter: 12:20 - Subjective Interval History: Patient seen and examined in the room, she had one episode of chest pain last night and required nitroglycerin. She is pain-free currently. She denies shortness of breath, palpitation, or syncope. - Exam Vitals: Temp Pulse Resp BP Pulse Ox 98.1 F 70 15 117/76 91 08/31/18 12:00 08/31/18 12:00 08/31/18 12:00 08/31/18 12:00 08/31/18 12:00 Exam: PHYSICAL EXAMINATION: GENERAL APPEARANCE: The patient is alert, oriented and in no acute distress. HEENT: Head is normocephalic. The sinuses are nontender. Pupils are equal and reactive. The nares are patent. Oropharynx clear without lesions. NECK: Supple without lymphadenopathy. HEART: Regular rate and rhythm. LUNGS: No crackles or wheezes are heard. ABDOMEN: Soft, nontender, nondistended with good bowel sounds heard. Inguinal area is normal. EXTREMITIES: Without cyanosis, clubbing or edema. NEUROLOGICAL: Gross nonfocal. SKIN: Warm and dry without any rash. - Assessment and Plan (1) Chest pain Current Visit: Yes Status: Acute Assessment and Plan: EKG at the ED showed no acute ST-T change, troponin was negative 3, however, stress test performed this morning revealed moderate ischemic change at inferior and lateral wall. Patient received aspirin and Plavix already. Continue manage CV risk factors including hypertension, nitroglycerin as needed for chest pain. TTE performed and showed EF 65%, normal LV function, mod-severe . Pt has chronic anemia but has no evidence of active bleeding, Hgb is stable at the baseline. Stool occult blood test negative. Continue aspirin and Plavix. Patient underwent left heart catheter this morning, which showed moderate nonobstructive CAD, moderate aortic stenosis, medical management recommended by cardiology. (2) CAD (coronary artery disease) Current Visit: No Status: Chronic Assessment and Plan: Continue home cardiac meds, abnormal stress test result revealed. Left heart catheterization this morning revealed moderate nonobstructive CAD, moderate aortic stenosis, cardiology recommended medical management. We will continue aspirin and Plavix, and other cardiac medications as well. (3) GERD (gastroesophageal reflux disease) Current Visit: No Status: Chronic Assessment and Plan: Continue home meds (4) Hypertension Current Visit: No Status: Chronic Assessment and Plan: Continue home meds (5) Cough Current Visit: Yes Status: Resolved (6) Anemia Current Visit: No Status: Chronic Assessment and Plan: Pt has chronic anemia, reported recent black stool and bright red bloody stool. Hgb stable at baseline. Continue to monitor. (7) DVT prophylaxis Current Visit: Yes Status: Acute Assessment and Plan: Heparin subcutaneous - Time Spent with Patient Total time spent is greater than 50% in coordination of care (as documented) at patient's floor/unit and/or counseling patient: Greater than 35 minutes Plan of Care Discussed with: patient Internal Medicine: Result - Labs CBC & Chem 7: 08/31/18 03:32 08/31/18 03:32 Labs: Short CBC 08/31/18 Range/Units 03:32 WBC 5.3 (4.3-11.1) K/mcL Hgb 10.8 L (11.5-15.4) g/dL Hct 33.4 L (35.3-44.9) % Plt Count 206 (140-400) K/mcL Neutrophils # 3.2 (1.6-8.9) K/mcL BMP 08/31/18 03:32 Sodium 137 Potassium 3.9 Chloride 102 Carbon Dioxide 28 BUN 13 Creatinine 0.93 Glucose 110 H Calcium 9.4 - ABG Interpretation ABG results: PT/INR, D-dimer PT 14.0 Seconds (9.4-12.1) H 08/28/18 18:37 Consult Discharge Plan - Plan Referrals: Mo Chang MD [Primary Care Provider] - (1) Chest pain Qualifiers: Chest pain type: unspecified Qualified Code(s): R07.9 - Chest pain, unspecified (2) CAD (coronary artery disease) Qualifiers: Coronary Disease-Associated Artery/Lesion type: [place] artery [place] vs. transplanted heart: [place] heart Associated angina: without angina Qualified Code(s): I25.10 - Atherosclerotic heart disease of [place] coronary artery withou t angina pectoris (3) GERD (gastroesophageal reflux disease) Qualifiers: Esophagitis presence: without esophagitis (4) Hypertension Qualifiers: Hypertension type: essential hypertension Qualified Code(s): I10 - Essential (primary) hypertension (6) Anemia Qualifiers: Anemia type: unspecified type Qualified Code(s): D64.9 - Anemia, unspecified
--- NOTE | 2018-08-31 17:47 | Electrocardiograph Report ---
[place] [id number] Test Date: 2018-08-28 Pat Name: Pepper Renner Department: [id number] Room: 3B35 Gender: F Final Application Reviewer: : 1945 Requested By: Jose Pinedo Order Number: [id number] Reading MD: Ramona Torres Measurements Intervals [place] Rate: 66 P: 36 CA: 153 QRS: 10 QRSD: 83 T: 10 QT: 373 QTc: 391 Interpretive Statements Sinus rhythm Left ventricular hypertrophy Electronically Signed On 08-31-2018 17:46:25 EST by Ramona Torres
[2018-09-01] MEDS: *HR* Heparin 5,000 UNIT/ML VIAL SQ SCH (05:48)
--- NOTE | 2018-09-01 07:46 | Discharge Summary ---
- NOTES TO OUTPATIENT PROVIDER Notes to Outpatient Provider: f/u with PCP within a week. f/u with cardiology within a month Orders not resulted at time of discharge: Pending orders 08/29/18 06:00 NM bhaskar perf SPECT multi [NM] AM 0600 Date of Encounter: 09/01/18 Time of Encounter: 07:44 - Discharge Diagnosis (1) Chest pain Priority: Primary Status: Acute Qualifiers: Chest pain type: unspecified Qualified Code(s): R07.9 - Chest pain, unspecified (2) CAD (coronary artery disease) Priority: Secondary Status: Chronic Qualifiers: Coronary Disease-Associated Artery/Lesion type: [place] artery [place] vs. transplanted heart: [place] heart Associated angina: without angina Qualified Code(s): I25.10 - Atherosclerotic heart disease of [place] coronary artery without angina pectoris (3) GERD (gastroesophageal reflux disease) Priority: Secondary Status: Chronic Qualifiers: Esophagitis presence: without esophagitis Qualified Code(s): K21.9 - Gastro-esophageal reflux disease without esophagitis (4) Hypertension Priority: Secondary Status: Chronic Qualifiers: Hypertension type: essential hypertension Qualified Code(s): I10 - Essential (primary) hypertension (5) Cough Priority: Primary Status: Resolved (6) Anemia Priority: Secondary Status: Chronic Qualifiers: Anemia type: unspecified type Qualified Code(s): D64.9 - Anemia, unspecified (7) DVT prophylaxis Priority: Primary Status: Acute Hospital course: Ms. Renner is a 72 year old female with history of coronary artery disease status post PCI and coronary stents, hyperlipidemia, hypertension who presents with complaints of chest pain that has been going on and off for 1 day. She is also been dealing with a productive cough for the last week or so. No fevers reported. The patient has had a negative stress test October 2016. She says the chest pain is about 6 out of 10 feels like pressure on the left side with radiation down her arm on the left side as well. No diaphoresis or dizziness. She reports shortness of breath with that as well as feeling nauseous. She vomited once. 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 In the ED she was hemodynamically stable and had laboratory workup as well as an EKG. EKG showed no acute ST or T-wave changes. Labs were mostly unremarkable. Chest x-ray showed possible perihilar infiltrate. She was not given antibiotics in the ED. Her chest pain did improve with nitroglycerin in the ED. She underwent stress test 08/29 which revealed moderate ischemic change at inferior and lateral wall. Aspirin was added to Plavix. TTE was performed and showed EF 65%, normal LV function, mod-severe . Patient underwent left heart catheter 08/31, which showed moderate nonobstructive CAD, moderate aortic stenosis, medical management recommended by cardiology. She is chest pain free on the discharge day. Her vital signs were stable. Atovorstatin dose increased to 80 mg daily. She was instructed to take both asa and Plavix. continue CV risk factor modification including active life syle, BP and lipid control. She will f/u with PCP and cardiology as scheduled. Discharge discussed with: patient Time spent discussing smoking cessation with patient: more than 10 minutes - Time Spent with Patient Total time spent providing and/or coordinating discharge services: Greater than 30 minutes - Discharge Medications Prescriptions: Aspirin Enteric Coated [Aspirin EC] 81 mg PO DAILY #30 tablet. Atorvastatin [Lipitor] 80 mg PO HS #30 tablet Home Medications: Carvedilol [Coreg] 25 mg PO BID 06/07/15 [History] Clopidogrel [Plavix] 75 mg PO QAM 06/07/15 [History] Ezetimibe [Zetia] 10 mg PO QAM 06/07/15 [History] Nitroglycerin 0.4 mg SL AD PRN 06/07/15 [History] Ranitidine HCl [Zantac] 150 mg PO BID 06/07/15 [History] Losartan Potassium [Cozaar] 50 mg PO DAILY 12/20/15 [History] Ondansetron ODT [Zofran ODT] 4 mg SL Q6HR PRN #7 tab.rapdis 07/31/18 [Rx] Hyoscyamine SL [Levsin Sl] 0.125 mg SL TID PRN 08/28/18 [History] Aspirin Enteric Coated [Aspirin EC] 81 mg PO DAILY #30 tablet. 09/01/18 [Rx] Atorvastatin [Lipitor] 80 mg PO HS #30 tablet 09/01/18 [Rx] Allergies/Adverse Reactions: Allergy/AdvReac Type Severity Reaction Status Date / Time No Known Allergies Allergy Verified 08/28/18 18:39 Date of admission: 08/30/18 12:29 Primary care physician: Mo Chang MD Consults: 08/29/18 11:09 Consult to Cardiology [CONS] Routine Comment: Consulting Provider: Cardiology Brittni Reason for Consult: chest pain Call Completed: Yes Anticipated date of discharge: 09/01/18 - Constitutional Vitals: Temp Pulse Resp BP Pulse Ox 97.7 F 78 16 106/63 94 09/01/18 03:52 09/01/18 03:52 09/01/18 03:52 09/01/18 03:52 09/01/18 03:52 General appearance: Present: cooperative, A&O X 3, answers questions appropriately Exam: PHYSICAL EXAMINATION: GENERAL APPEARANCE: The patient is alert, oriented and in no acute distress. HEENT: Head is normocephalic. The sinuses are nontender. Pupils are equal and reactive. The nares are patent. Oropharynx clear without lesions. NECK: Supple without lymphadenopathy. HEART: Regular rate and rhythm. LUNGS: No crackles or wheezes are heard. ABDOMEN: Soft, nontender, nondistended with good bowel sounds heard. Inguinal area is normal. EXTREMITIES: Without cyanosis, clubbing or edema. NEUROLOGICAL: Gross nonfocal. SKIN: Warm and dry without any rash. - Patient Status Disposition: Home, Self-Care Condition: Good Functional capacity at discharge: independent ambulation Overall status at discharge: patient is progressing back to baseline - Discharge Instructions Follow Up With: Mo Chang MD [Primary Care Provider] - - Diet and Activity Activity: increase activity as tolerated Diet: low fat, low cholesterol, low salt diet
[2018-09-01] MEDS: Aspirin Enteric Coated 81 MG Tablet PO SCH (08:30)
[2018-09-01] MEDS: Famotidine 20 MG TABLET PO SCH (08:30)
[2018-09-01] MEDS: (Ezetimibe [Zetia] 10 MG) PO SCH (08:33)
[2018-09-01] MEDS ORDERED: Ondansetron ODT 4 MG TAB.RAPDIS SL STA (08:52)
[2018-09-01] MEDS ORDERED: Ondansetron ODT 4 MG TAB.RAPDIS SL ONE (09:26)
[2018-09-01 11:20] VITALS: BP 110/58
== END 2018-09-01 13:19 | disposition home or self-care (01) | DRG 287 ==
LOC: 3BNU 18:12 → EMEROOARM 18:12 → 3BNU 20:59
PROVIDERS: ADMIT Internal Medicine; ATTEND Internal Medicine

== ENCOUNTER 2019-06-27 09:50 | Inpatient (IN) ==
--- NOTE | 2019-06-27 10:13 | Emergency Department Note ---
Disposition Clinical Impression: Weakness Acute CHF Qualifiers: Heart failure type: unspecified Qualified Code(s): I50.9 - Heart failure, unspecified Chest pain Qualifiers: Chest pain type: precordial pain Qualified Code(s): R07.2 - Precordial pain Disposition: Admitted As Inpatient Condition: Good Forms: ED Satisfaction Letter Time of Disposition: 12:20 Weakness HPI - General Chief complaint: ED Weakness Stated complaint: weakness Time Seen by Provider: 06/27/19 09:56 Source: patient, EMS Limitations: no limitations Nursing Notes Reviewed: Yes Vital Signs Reviewed: Yes - History of Present Illness HPI Narrative: This is a 73-year-old female who presents today with complaint of generalized weakness and dizziness that started upon waking up. Patient also complains of some substernal chest pain, described as aching, which also started this morning. Patient also has had some cough and congestion for the past few days. She denies any fever. She denies any vomiting or diarrhea. She denies any visual or speech changes. She denies any focal neurologic complaints. She describes symptoms as moderate. There are no obvious aggravating or relieving factors. Pt Subjective Complaint: generalized weakness/fatigue Duration: constant Location: generalized Migration: none Pain Scale: 6 - Related Data Home Medications Medication Instructions Recorded Confirmed Carvedilol [Coreg] 25 mg PO BID 06/07/15 06/27/19 Clopidogrel [Plavix] 75 mg PO QAM 06/07/15 06/27/19 Ezetimibe [Zetia] 10 mg PO QAM 06/07/15 06/27/19 Nitroglycerin 0.4 mg SL PRN PRN 06/07/15 06/27/19 Losartan Potassium [Cozaar] 50 mg PO DAILY 12/20/15 06/27/19 Ferrous Sulfate [Iron] 325 mg PO DAILY 11/09/18 06/27/19 Isosorbide MONOnitrate (24 HR) 60 mg PO DAILY 06/27/19 06/27/19 [Imdur] Montelukast [Singulair] 10 mg PO DAILY 06/27/19 06/27/19 Oxybutynin Chloride [Ditropan XL] 5 mg PO DAILY 06/27/19 06/27/19 Pantoprazole Sodium [Protonix] 40 mg PO DAILY 06/27/19 06/27/19 Ranitidine HCl [Heartburn Relief] 150 mg PO DAILY 06/27/19 06/27/19 Rosuvastatin Calcium [Crestor] 20 mg PO DAILY 06/27/19 06/27/19 Allergies Allergy/AdvReac Type Severity Reaction Status Date / Time No Known Allergies Allergy Verified 11/11/18 10:06 All systems ED: reviewed and negative except as stated. Constitutional: Reports: weakness. Denies: fever, chills ENT ED: Reports: congestion Cardiovascular: Reports: chest pain. Denies: palpitations, syncope Respiratory: Reports: cough, dyspnea Gastrointestinal: Denies: abdominal pain, nausea, vomiting Neurological: Reports: weakness, vertigo. Denies: headache Past Medical History - Past Medical History Medical history: Reports: cancer, COPD, coronary artery disease, hyperlipidemia, hypertension, myocardial infarction, other Surgical history: Reports: angioplasty/stent, breast surgery, cholecystectomy, hysterectomy, knee replacement, other Psychiatric history: Reports: no psych history ACCOUNTS MANAGER history: Reports: no ACCOUNTS MANAGER history, bilateral tubal ligation - Social History Smoking Status: Former smoker Smokeless Tobacco Status: No Alcohol use: Reports: none Drug use: Reports: none Physical Exam - General Limitations: no limitations General appearance: alert, in no apparent distress - Head Head exam: atraumatic, normocephalic, normal inspection - Eye Eye exam: Present: normal appearance, PERRL, EOMI - Expanded Eye Exam Pupils: Left: reactive - ENT ENT exam: normal exam, normal oropharynx, mucous membranes moist - Expanded ENT Exam External ear exam: Present: normal external inspection Mouth exam: Present: normal external inspection Teeth exam: Present: normal inspection Throat exam: Present: normal inspection - Neck Neck exam: Present: normal inspection, full ROM, trachea midline - Chest Chest inspection: Present: normal inspection, symmetric chest wall rise - Expanded Respiratory Exam Location: rales: Left, Right, Lower, rhonchi: Left, Right, Lower - Cardiovascular Cardiovascular exam: Present: regular rate, normal rhythm, normal heart sounds - Abdominal Exam Abdominal exam: Present: soft, Non-Tender. Absent: tenderness, distention, guarding, rebound, rigidity - Extremities Exam Extremities exam: Present: normal inspection, full ROM. Absent: tenderness, pedal edema - Expanded Upper Extremity Exam Shoulder exam: Present: normal inspection, full ROM Arm exam: Present: normal inspection, full ROM Elbow exam: Present: normal inspection, full ROM Forearm/Wrist exam: Present: normal inspection, full ROM Hand exam: Present: normal inspection, full ROM Vascular exam: Normal: capillary refill, radial pulse - Expanded Lower Extremity Exam Hip/Pelvis exam: Present: normal inspection, full ROM Upper leg exam: Present: normal inspection, full ROM Knee exam: Present: normal inspection, full ROM Lower leg exam: Present: normal inspection, full ROM Ankle exam: Present: normal inspection, full ROM Foot/toe exam: Present: normal inspection, full ROM Neurovascular/Tendon exam: Absent: motor deficit, sensory deficit, tendon deficit - Back Exam Back exam: Present: normal inspection, full ROM. Absent: tenderness - Neurological Exam Neurological exam: Present: alert, oriented X3, CN II-XII intact, other (Abdomen no motor, sensory or cerebellar deficits. Nonfocal neurologic exam. GCS is 15. NIH stroke score is 0) - Expanded Neurological Exam Patient oriented to: Present: person, place, time Coma Scale Eye Opening: Spontaneous Coma Scale Motor Response: Obeys Commands Coma Scale Verbal Response: Oriented Coma Scale Total: 15 - Psychiatric Psychiatric exam: Present: normal affect, normal mood - Skin Skin exam: Present: warm, dry, intact, normal color Course Vital Signs Temperature 98.2 F 06/27/19 10:04 Pulse Rate 62 06/27/19 10:04 Respiratory Rate 22 06/27/19 10:04 Blood Pressure 213/90 06/27/19 10:04 O2 Sat by Pulse Oximetry 100 06/27/19 10:04 Temperature 97.8 F 06/27/19 10:16 Pulse Rate 62 06/27/19 10:04 Respiratory Rate 22 06/27/19 10:04 Blood Pressure 179/73 06/27/19 10:16 O2 Sat by Pulse Oximetry 100 06/27/19 10:04 Oxygen Delivery Oxygen Delivery Room Air Weakness - MDM Narrative Medical decision making narrative: Differential diagnosis includes pneumonia versus UTI versus electrode abnormality versus dehydration versus acute coronary syndrome. CVAs status likely given nonfocal neurologic exam. Given this was discussed and risk factors, I will rule out ACS especially with chest pain as a presenting complaint also. We will check basic labs including urinalysis, chest x-ray, CT scan and lactate. EKG shows normal sinus rhythm at 72 beats per minute. Normal axis. Normal intervals. Normal EKG. 1115 Patient reevaluated. Patient is doing better. 1210 Labs and imaging reviewed. Lasix ordered for CHF. Patient's care discussed with the hospitalist. We will admit to the hospitalist service. - Medical Records Medical records reviewed: Yes I reviewed the patient's medical records. - Lab Data Lab results reviewed: Yes I reviewed the patient's lab results. Result diagrams: 06/27/19 10:00 06/27/19 10:00 Lab Results 06/27/19 06/27/19 06/27/19 Range/Units 10:00 10:00 10:00 WBC 5.8 (4.3-11.1) K/mcL RBC 3.87 (3.82-4.97) M/mcL Hgb 11.0 L (11.5-15.4) g/dL Hct 34.4 L (35.3-44.9) % MCV 88.9 (83.0-100.0) fL MCH 28.4 (28.0-33.3) pg MCHC 32.0 (31.6-35.5) g/dL RDW 13.4 (11.5-14.5) % Plt Count 211 (140-400) K/mcL MPV 10.4 (9.4-12.4) fL Immature Gran % 0.3 (0-4) % Seg Neutrophils % 57.7 % Lymphocytes % 25.9 % Monocytes % 9.4 % Eosinophils % 5.7 % Basophils % 1.0 % Neutrophils # 3.3 (1.6-8.9) K/mcL Lymphocytes # 1.5 (0.6-4.6) K/mcL Monocytes # 0.5 (0.0-1.3) K/mcL Eosinophils # 0.3 (0.0-0.6) K/mcL Basophils # 0.1 (0.0-0.2) K/mcL Sodium 142 (136-145) mEq/L Potassium 3.7 (3.5-5.1) mEq/L Chloride 106 (98-107) mEq/L Carbon Dioxide 29 (23-29) mEq/L BUN 13 (8-23) mg/dL Creatinine 0.91 (0.60-1.20) mg/dL Est GFR ( Amer) > 60 (> 60) Est GFR (Non-Af Amer) > 60 (> 60) BUN/Creatinine Ratio 14 (6-26) Glucose 102 (70-105) mg/dL Calculated Osmolality 294 (280-300) Lactic Acid (0.5-2.2) mmol/L Calcium 9.6 (8.6-10.3) mg/dL Total Bilirubin 0.5 (0.3-1.0) mg/dL AST 14 (13-39) Units/L ALT 8 (7-52) Units/L Alkaline Phosphatase 63 (34-104) Units/L Troponin I 0.06 H* (< 0.04) ng/mL B-Natriuretic Peptide 402 H (Less than 100) pg/mL Serum Total Protein 7.4 (6.4-8.9) g/dL Albumin 3.7 (3.5-5.7) g/dL Globulin 3.7 H (2.4-3.5) g/dL Albumin/Globulin Ratio 1.0 L (1.1-2.2) Urine Color (Yellow) Urine Clarity (Clear) Urine pH (5.0-8.0) pH Units Ur Specific [place] (1.010-1.025) Urine Protein (Neg-Trace) mg/dL Urine Glucose (UA) (Normal) mg/dL Urine Ketones (Negative) mg/dL Urine Blood (Negative) Urine Nitrite (Negative) Urine Bilirubin (Negative) Urine Urobilinogen (Normal) mg/dL Ur Leukocyte Esterase (Negative) Ur Culture Indicated? (NO) 06/27/19 06/27/19 Range/Units 10:30 11:21 WBC (4.3-11.1) K/mcL RBC (3.82-4.97) M/mcL Hgb (11.5-15.4) g/dL Hct (35.3-44.9) % MCV (83.0-100.0) fL MCH (28.0-33.3) pg MCHC (31.6-35.5) g/dL RDW (11.5-14.5) % Plt Count (140-400) K/mcL MPV (9.4-12.4) fL Immature Gran % (0-4) % Seg Neutrophils % % Lymphocytes % % Monocytes % % Eosinophils % % Basophils % % Neutrophils # (1.6-8.9) K/mcL Lymphocytes # (0.6-4.6) K/mcL Monocytes # (0.0-1.3) K/mcL Eosinophils # (0.0-0.6) K/mcL Basophils # (0.0-0.2) K/mcL Sodium (136-145) mEq/L Potassium (3.5-5.1) mEq/L Chloride (98-107) mEq/L Carbon Dioxide (23-29) mEq/L BUN (8-23) mg/dL Creatinine (0.60-1.20) mg/dL Est GFR ( Amer) (> 60) Est GFR (Non-Af Amer) (> 60) BUN/Creatinine Ratio (6-26) Glucose (70-105) mg/dL Calculated Osmolality (280-300) Lactic Acid 0.8 (0.5-2.2) mmol/L Calcium (8.6-10.3) mg/dL Total Bilirubin (0.3-1.0) mg/dL AST (13-39) Units/L ALT (7-52) Units/L Alkaline Phosphatase (34-104) Units/L Troponin I (< 0.04) ng/mL B-Natriuretic Peptide (Less than 100) pg/mL Serum Total Protein (6.4-8.9) g/dL Albumin (3.5-5.7) g/dL Globulin (2.4-3.5) g/dL Albumin/Globulin Ratio (1.1-2.2) Urine Color Yellow (Yellow) Urine Clarity Clear (Clear) Urine pH 7.5 (5.0-8.0) pH Units Ur Specific [place] 1.010 (1.010-1.025) Urine Protein Trace (Neg-Trace) mg/dL Urine Glucose (UA) Normal (Normal) mg/dL Urine Ketones Negative (Negative) mg/dL Urine Blood Negative (Negative) Urine Nitrite Negative (Negative) Urine Bilirubin Negative (Negative) Urine Urobilinogen Normal (Normal) mg/dL Ur Leukocyte Esterase Negative (Negative) Ur Culture Indicated? NO (NO) - Radiology Data Radiology results reviewed: Yes I reviewed the patient's radiology results. - EKG Data EKG attestation: Yes I reviewed and interpreted this EKG. Heart Score - Score History: Moderately Suspicious EKG: Normal Age: Greater than 65 Risk Factors: 1-2 risk factors Troponin: 1-3x normal limit HEART Score Total: 5
[2019-06-27 10:23] LABS: Basophils # 0.1 K/mcL (0.0-0.2); Eosinophils # 0.3 K/mcL (0.0-0.6); Eosinophils % 5.7 %; Hematocrit 34.4 % (35.3-44.9); Immature Granulocytes % 0.3 % (0-4); Lymphocytes # 1.5 K/mcL (0.6-4.6); Lymphocytes % 25.9 %; Mean Corpuscular Hemoglobin 28.4 pg (28.0-33.3); Mean Corpuscular Volume 88.9 fL (83.0-100.0); Mean Platelet Volume 10.4 fL (9.4-12.4); Monocytes # 0.5 K/mcL (0.0-1.3); Monocytes % 9.4 %; Neutrophils # 3.3 K/mcL (1.6-8.9); Platelet Count 211 K/mcL (140-400); Red Blood Count 3.87 M/mcL (3.82-4.97); Red Cell Distribution Width 13.4 % (11.5-14.5); Segmented Neutrophils % 57.7 %; White Blood Count 5.8 K/mcL (4.3-11.1)
[2019-06-27 10:53] LABS: Alanine Aminotransferase 8 Units/L (7-52); Albumin 3.7 g/dL (3.5-5.7); Alkaline Phosphatase 63 Units/L (34-104); Aspartate Amino Transferase 14 Units/L (13-39); BUN/Creatinine Ratio 14 (6-26); Bilirubin,Total 0.5 mg/dL (0.3-1.0); Blood Urea Nitrogen 13 mg/dL (8-23); Calcium 9.6 mg/dL (8.6-10.3); Carbon Dioxide 29 mEq/L (23-29); Chloride 106 mEq/L (98-107); Globulin 3.7 g/dL (2.4-3.5); Glucose 102 mg/dL (70-105); Osmolality,Calculated 294 (280-300); Potassium 3.7 mEq/L (3.5-5.1); Sodium 142 mEq/L (136-145); Total Protein 7.4 g/dL (6.4-8.9); Troponin I 0.06 ng/mL (< 0.04); eGFR For African Americans > 60 (> 60); eGFR For Non-African Americans > 60 (> 60)
[2019-06-27 11:29] LABS: Bilirubin,Urine Negative (Negative); Blood,Urine Negative (Negative); Clarity,Urine Clear (Clear); Color,Urine Yellow (Yellow); Glucose,Urine (UA) Normal (Normal); Ketones,Urine Negative (Negative); Leukocyte Esterase,Urine Negative (Negative); Nitrite,Urine Negative (Negative); PH,Urine 7.5 pH Units (5.0-8.0); Protein,Urine Trace mg/dL (Neg-Trace); Urobilinogen,Urine Normal (Normal)
[2019-06-27] MEDS ORDERED: Aspirin 81 MG TAB.CHEW PO ONE (11:53)
[2019-06-27] MEDS ORDERED: Furosemide 40 MG/4 ML VIAL IVP ONE (11:54)
[2019-06-27] MEDS ORDERED: Ondansetron 4 MG/2 ML VIAL IVP PRN (13:40)
[2019-06-27] MEDS ORDERED: Nitroglycerin 0.4 MG TAB.SUBL SL PRN (13:40)
--- NOTE | 2019-06-27 13:42 | Internal Med History&Physical ---
Date of Encounter: 06/27/19 Time of Encounter: 13:50 Internal Medicine - H&P: HPI History of present illness: Ms. Renner is a 73 year old female with history of CAD with stents, moderate aortic stenosis, hypertension, hyperlipidemia presented to ED for dizziness and chest pain. She was getting up from a seated position and suddenly had dizziness with a headache and fell back down. She then had left sided chest pain that was dull, lasting for about 5 minutes. Pain can be worsened with cough at times, but other times no. Sometimes burping alleviates symptoms. She denied shortness of breath, n/v, palpitations, numbness/tingling. She does admit to severe orthopnea at home and must always be sitting up with a minimum of two pillows per night. She had workup here for chest pain with a stress test 08/29/2018 showing moderate ischemic changes at inferior and lateral wall. She had a left heart catheter done 08/31/2018 which showed moderate nonobstructive CAD, moderate . It was recommended by Cardiology for medical management at that time and discharged. In the ED an EKG showed NSR, BP was elevated at 21/90 but came down to 147/76 with normal heart rates. Initial troponin was 0.06, chest x-ray showing interstitial opacities throughout the lung likely CHF and edema. A BNP was 402, A head CT showed no acute process. She was given aspirin and 40 mg IV Lasix x1. Currently in no acute distress. Past Med Surg Social Fam HX - Past Medical History Medical history: cancer, COPD, coronary artery disease, hyperlipidemia, hypertension, myocardial infarction, other Additional medical history: osterarthritis, gallstones, colon cancer Psychiatric history: no psych history - Past Surgical History Surgical History: angioplasty/stent, breast surgery, cholecystectomy, hysterectomy, knee replacement, other Additional surgical history: 2 cardiac stents - Social History Smoking Status: Former smoker Smokeless Tobacco Status: No Alcohol use: none Drug use: none - Family History Mother Living Status: Hx Family Cardiac Disorders: Yes Father Living Status: Hx Family Cardiac Disorders: Yes Sister Living Status: Still Living Brother Living Status: Still Living Hx Family Cardiac Disorders: Yes Internal Medicine - H&P: Meds Carvedilol [Coreg] 25 mg PO BID 06/07/15 [History] Clopidogrel [Plavix] 75 mg PO QAM 06/07/15 [History] Ezetimibe [Zetia] 10 mg PO QAM 06/07/15 [History] Nitroglycerin 0.4 mg SL PRN PRN 06/07/15 [History] Losartan Potassium [Cozaar] 50 mg PO DAILY 12/20/15 [History] Ferrous Sulfate [Iron] 325 mg PO DAILY 11/09/18 [History] Isosorbide MONOnitrate (24 HR) [Imdur] 60 mg PO DAILY 06/27/19 [History] Montelukast [Singulair] 10 mg PO DAILY 06/27/19 [History] Oxybutynin Chloride [Ditropan XL] 5 mg PO DAILY 06/27/19 [History] Pantoprazole Sodium [Protonix] 40 mg PO DAILY 06/27/19 [History] Ranitidine HCl [Heartburn Relief] 150 mg PO DAILY 06/27/19 [History] Rosuvastatin Calcium [Crestor] 20 mg PO DAILY 06/27/19 [History] Allergy/AdvReac Type Severity Reaction Status Date / Time No Known Allergies Allergy Verified 11/11/18 10:06 All Systems PM: A 10-system review of systems was performed and is negative for pertinent findings except as documented above in the HPI. - Constitutional Vitals: Temp Pulse Resp BP Pulse Ox 97.8 F 71 20 147/76 98 06/27/19 10:16 06/27/19 13:13 06/27/19 13:13 06/27/19 13:13 06/27/19 13:13 General appearance: Present: A&O X 3, no acute distress Exam: . - Head Head exam: Present: atraumatic, normocephalic - Eye Eye exam: Present: PERRL, conjuntiva pink, sclera anicteric Pupils: Present: PERRL - Neck Neck exam general surgery: Present: supple, trachea midline. Absent: lymphadenopathy - Respiratory Respiratory exam: Present: rales. Absent: accessory muscle use, rhonchi, wheezes - Cardiovascular Cardiovascular exam: Present: RRR, +S1, +S2, systolic murmur. Absent: diastolic murmur, gallop, rubs - GI/Abdominal GI/Abdominal exam: Present: normal bowel sounds, soft, no peritoneal signs. Absent: distended, tenderness - Extremities Exam Extremities exam: Present: warm, radial pulses palpable and symmetrical. Absent: calf tenderness, cyanotic, pedal edema - Neurological Exam Neurological exam: Present: CN II-XII intact, oriented X3, no focal deficits. Absent: pronater drift, facial droop, speech deficit - Skin Skin exam: Present: dry, intact Internal Med - H&P Results - Labs CBC & Chem 7: 06/27/19 10:00 06/27/19 10:00 Labs: Short CBC 06/27/19 Range/Units 10:00 WBC 5.8 (4.3-11.1) K/mcL Hgb 11.0 L (11.5-15.4) g/dL Hct 34.4 L (35.3-44.9) % Plt Count 211 (140-400) K/mcL Neutrophils # 3.3 (1.6-8.9) K/mcL BMP 06/27/19 10:00 Sodium 142 Potassium 3.7 Chloride 106 Carbon Dioxide 29 BUN 13 Creatinine 0.91 Glucose 102 Calcium 9.6 Cardiac Enzymes 06/27/19 Range/Units 10:00 Troponin I 0.06 H* (< 0.04) ng/mL Liver Function 06/27/19 Range/Units 10:00 Total Bilirubin 0.5 (0.3-1.0) mg/dL AST 14 (13-39) Units/L ALT 8 (7-52) Units/L Alkaline Phosphatase 63 (34-104) Units/L Albumin 3.7 (3.5-5.7) g/dL Urine 06/27/19 Range/Units 11:21 Urine Color Yellow (Yellow) Urine Clarity Clear (Clear) Urine pH 7.5 (5.0-8.0) pH Units Ur Specific [place] 1.010 (1.010-1.025) Urine Protein Trace (Neg-Trace) mg/dL Urine Glucose (UA) Normal (Normal) mg/dL - Impressions ITS Impressions Head CT 06/27/19 11:00 IMPRESSION: No acute intracranial abnormality. D/ / Lorraine Hampton MD / Lorraine Hampton MD Interpreting Provider: Lorraine Hampton MD Chest X-Ray 06/27/19 11:06 IMPRESSION: Findings as above likely related to congestive heart failure and edema. D/ / Lorraine Hampton MD / Lorraine Hampton MD Interpreting Provider: Lorraine Hampton MD - Assessment and Plan (1) Chest pain Current Visit: Yes Status: Acute Assessment and plan: Differentials include hypertensive episode, ACS, chostochondritis, acute CHF, other. Presenting symptoms on admission are concerning for symptomatic aortic stenosis as the patient presents with acute heart failure, angina, and presyncope. Wells' Score 0, low suspicion for PE. - Cycle cardiac enzymes - Echocardiogram - Nitro prn - Hypertension and fluid overload control with caution. Will avoid abruptly lowering BP since patient has aortic stenosis. - May need Cardiology consultation, pending further workup. Qualifiers: Chest pain type: unspecified Qualified Code(s): R07.9 - Chest pain, unspecified (2) Acute decompensated heart failure Current Visit: Yes Status: Acute Assessment and plan: CXR showing pulmonary edema plus enlarged cardiac silhouette, coarse rales on exam. Complains of orthopnea recently and dyspnea on exertion. , BNP elevated at 402. No prior records of CHF documented. Could be due to ischemic cardiomyopathy, progressing aortic stenosis, or other etiology. - Echocardiogram - Strict I/Os - Daily weights - Lasix 20 mg IV daily, avoiding abrupt reduction in preload - check TSH (3) Elevated troponin Current Visit: Yes Status: Acute Assessment and plan: rule out ACS vs possibly demand ischemia in the setting of acute heart failure a nd hypertension. Workup as above. (4) Aortic stenosis Current Visit: No Status: Acute Assessment and plan: Echocardiogram 04/14/2019 showing moderate-severe . Workup as above. Qualifiers: Cardiac valve disease etiology: nonrheumatic Qualified Code(s): I35.0 - Nonrheumatic aortic (valve) stenosis (5) CAD (coronary artery disease) Current Visit: No Status: Chronic Assessment and plan: Resume home medications Qualifiers: Coronary Disease-Associated Artery/Lesion type: [place] artery [place] vs. transplanted heart: [place] heart Associated angina: without angina Qualified Code(s): I25.10 - Atherosclerotic heart disease of [place] coronary artery without angina pectoris (6) GERD (gastroesophageal reflux disease) Current Visit: No Status: Chronic Qualifiers: Esophagitis presence: without esophagitis Qualified Code(s): K21.9 - Gastro-esophageal reflux disease without esophagitis (7) Hypertension Current Visit: No Status: Chronic Assessment and plan: Resume home medications. Add IV prn enalapril. Will avoid vasodilators like IV hydralazine due to aortic stenosis. Qualifiers: Hypertension type: essential hypertension Qualified Code(s): I10 - [place] (primary) hypertension (8) DVT prophylaxis Current Visit: No Status: Acute Assessment and plan: heparin SQ - Time Spent With Patient Total time spent is greater than 50% in coordination of care (as documented) at patient's floor/unit and/or counseling patient:
[2019-06-27] MEDS ORDERED: Ipratropium/Albuterol Neb 3 ML IH PRN (13:47)
[2019-06-27 16:01] LABS: INR 1.3; Prothrombin Time 14.5 Seconds (9.4-12.1)
[2019-06-27 16:14] LABS: Magnesium 2.1 mg/dL (1.6-2.6)
[2019-06-27 16:21] LABS: Troponin I 0.06 ng/mL (< 0.04)
[2019-06-27 16:29] LABS: Thyroid Stimulating Hormone 0.76 mcIU/mL (0.340-5.600)
[2019-06-27] MEDS: *HR* Heparin 5,000 UNIT/ML VIAL SQ SCH (18:02)
[2019-06-28 02:32] LABS: BUN/Creatinine Ratio 13 (6-26); Blood Urea Nitrogen 14 mg/dL (8-23); Calcium 9.3 mg/dL (8.6-10.3); Carbon Dioxide 30 mEq/L (23-29); Chloride 99 mEq/L (98-107); Glucose 87 mg/dL (70-105); Osmolality,Calculated 290 (280-300); Potassium 3.3 mEq/L (3.5-5.1); Sodium 140 mEq/L (136-145); eGFR For African Americans > 60 (> 60); eGFR For Non-African Americans 50 (> 60)
[2019-06-28] MEDS: *HR* Heparin 5,000 UNIT/ML VIAL SQ SCH ×2 (05:39→17:59)
[2019-06-28] MEDS: Famotidine 20 MG TABLET PO SCH (05:39)
[2019-06-28] MEDS ORDERED: Furosemide 20 MG/2 ML VIAL IVP SCH ×2 (08:00→09:00)
--- NOTE | 2019-06-28 08:36 | Internal Med Progress Note ---
<Hector Resendiz - Last Filed: 06/28/19 15:46> Hospitalist Progress Note - Encounter Date of Encounter: 06/28/19 - Exam Vitals: Temp Pulse Resp BP Pulse Ox 97.6 F 61 14 120/64 91 06/28/19 11:01 06/28/19 11:01 06/28/19 11:01 06/28/19 11:01 06/28/19 06:44 - Assessment and Plan (1) Chest pain Current Visit: Yes Status: Acute (2) Acute decompensated heart failure Current Visit: Yes Status: Acute (3) Elevated troponin Current Visit: Yes Status: Acute (4) Aortic stenosis Current Visit: No Status: Acute (5) CAD (coronary artery disease) Current Visit: No Status: Chronic (6) GERD (gastroesophageal reflux disease) Current Visit: No Status: Chronic (7) Hypertension Current Visit: No Status: Chronic (8) DVT prophylaxis Current Visit: No Status: Acute - Time Spent with Patient Total time spent is greater than 50% in coordination of care (as documented) at patient's floor/unit and/or counseling patient: Internal Medicine: Result - Labs CBC & Chem 7: 06/27/19 10:00 06/28/19 14:14 Labs: BMP 06/28/19 06/28/19 00:54 14:14 Sodium 140 136 Potassium 3.3 L 4.1 Chloride 99 98 Carbon Dioxide 30 H 32 H BUN 14 20 Creatinine 1.08 1.15 Glucose 87 104 Calcium 9.3 9.2 Cardiac Enzymes 06/27/19 06/27/19 06/28/19 Range/Units 15:38 22:23 10:14 Troponin I 0.06 H* 0.07 H* 0.06 H* (< 0.04) ng/mL - ABG Interpretation ABG results: PT/INR, D-dimer PT 14.5 Seconds (9.4-12.1) H 06/27/19 15:38 Consult Discharge Plan - Plan Referrals: Brody Robbins MD [Partnered Physician] - 08/09/19 3:00 pm ( ) Mo Chang MD [Primary Care Provider] - 07/05/19 2:30 pm - Attending Attestation I saw evaluated and examined this patient and reviewed objective data including labs and my medical decision-making was reviewed with the Resident Physician/Medical Student. I agree with the documented findings, disposition and treatment plan as described except to any changes set forth below. We independently had [id number] contact with the patient. Patient had 1,600 ml on admission when she was given IV Lasix. Since overnight, patient has had 500 ml out. Concern is if patient having oliguria. VS: reviewed, Gen: NAD, CVS: RRR, Lung: coarse rales at lung bases, better aeration compared to yesterday's exam. Lower extremities without cyanosis or edema. IV Lasix was held this morning after seeing that she had about 2.3L urine output, and will avoid aggressive diuresis in . Will also need to monitor renal function and urine output carefully. If function should worsen, will consult Nephrology. <Carlos Mccray - Last Filed: 06/28/19 16:31> Hospitalist Progress Note - Encounter Date of Encounter: 06/28/19 Time of Encounter: 09:00 - Subjective Interval History: Ms. Renner is a 73YOF with history of CAD with stents, moderate aortic stenosis, hypertension, hyperlipidemia presented to ED for dizziness and chest pain. She was getting up from a seated position and suddenly had dizziness with a headache and fell back down. She then had left sided chest pain that was dull, lasting for about 5 minutes. Pain can be worsened with cough at times, but other times no. Sometimes burping alleviates symptoms. She does admit to severe orthopnea at home and must always be sitting up with a minimum of two pillows per night. She had workup here for chest pain with a stress test 08/29/2018 showing moderate ischemic changes at inferior and lateral wall. She had a left heart catheter done 08/31/2018 which showed moderate nonobstructive CAD, moderate . 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 Patient has no new complaints. Says she has not really had any new chest pain since she has been in the hospital. Patient denies any numbness, tingling, pain, shortness of breath at the moment. Patient says her appetite is doing okay and glad she has her coffee. - Exam Vitals: Temp Pulse Resp BP Pulse Ox 98.0 F 73 15 108/54 91 06/28/19 06:44 06/28/19 06:44 06/28/19 06:44 06/28/19 06:44 06/28/19 06:44 Exam: General: No acute distress, alert and oriented x3. Head: normocephalic, atraumatic ENT: EOMI, PERRLA, midline trachea CV: RRR, S1 and S2 auscultated, no S3 or S4 auscultated. systolic murmur, no gallop, or rubs Resp: Equal chest rise and fall. rales present. no rhonchi or wheezes Abdomen: Normal bowel sounds x4, non-distended, non-tender, no rebound or guarding. Extremities: equal pulses bilaterally, no edema. Neuro: cranial nerves grossly intact. alert and oriented x3. no focal deficits Skin: warm, dry, intact. Psych: normal mentation and mood - Assessment and Plan (1) Acute decompensated heart failure Current Visit: Yes Status: Acute Assessment and Plan: CXR showing pulmonary edema plus enlarged cardiac silhouette, coarse rales on exam. Complains of orthopnea recently and dyspnea on exertion. BNP elevated at 402. No prior records of CHF documented. Could be due to ischemic cardiomyopathy, progressing aortic stenosis, or other etiology. -Cardiology consulted, and agreed with plan to repeat echo. - Repeat echo - Strict I/Os - Daily weights - Lasix held today (06/28) due to receiving 40mg yesterday (06/27) and having significant (1.6L) of output -Will continue to monitor fluid status closely due to known aortic stenosis. (2) Chest pain Current Visit: Yes Status: Acute Assessment and Plan: -Trend troponins -repeat Echo -PRN nitro -HTN and fluid overload control with caution due to aortic stenosis. -Cardiology consulted. (3) Elevated troponin Current Visit: Yes Status: Acute Assessment and Plan: Workup as above to rule out ACS vs. demand ischemia (4) Aortic stenosis Current Visit: No Status: Acute Assessment and Plan: Echocardiogram 04/14/2019 showing moderate-severe . Workup as above. -Monitor fluid status as above. (5) CAD (coronary artery disease) Current Visit: No Status: Chronic Assessment and Plan: Resume home medications (6) GERD (gastroesophageal reflux disease) Current Visit: No Status: Chronic Assessment and Plan: Prilosec and pepcid (7) Hypertension Current Visit: No Status: Chronic Assessment and Plan: Resume home medications DVT Prophylaxis: SQ heparin - Summary of Assessment and Plan Summary of Assessment and Plan: As above - Time Spent with Patient Total time spent is greater than 50% in coordination of care (as documented) at patient's floor/unit and/or counseling patient: Internal Medicine: Result - Labs CBC & Chem 7: 06/27/19 10:00 06/28/19 14:14 Labs: Short CBC 06/27/19 Range/Units 10:00 WBC 5.8 (4.3-11.1) K/mcL Hgb 11.0 L (11.5-15.4) g/dL Hct 34.4 L (35.3-44.9) % Plt Count 211 (140-400) K/mcL Neutrophils # 3.3 (1.6-8.9) K/mcL BMP 06/27/19 06/28/19 10:00 00:54 Sodium 142 140 Potassium 3.7 3.3 L Chloride 106 99 Carbon Dioxide 29 30 H BUN 13 14 Creatinine 0.91 1.08 Glucose 102 87 Calcium 9.6 9.3 Cardiac Enzymes 06/27/19 06/27/19 06/27/19 Range/Units 10:00 15:38 22:23 Troponin I 0.06 H* 0.06 H* 0.07 H* (< 0.04) ng/mL Liver Function 06/27/19 Range/Units 10:00 Total Bilirubin 0.5 (0.3-1.0) mg/dL AST 14 (13-39) Units/L ALT 8 (7-52) Units/L Alkaline Phosphatase 63 (34-104) Units/L Albumin 3.7 (3.5-5.7) g/dL Urine 06/27/19 Range/Units 11:21 Urine Color Yellow (Yellow) Urine Clarity Clear (Clear) Urine pH 7.5 (5.0-8.0) pH Units Ur Specific [place] 1.010 (1.010-1.025) Urine Protein Trace (Neg-Trace) mg/dL Urine Glucose (UA) Normal (Normal) mg/dL - ABG Interpretation ABG results: PT/INR, D-dimer PT 14.5 Seconds (9.4-12.1) H 06/27/19 15:38 - Impressions Impressions Head CT 06/27/19 11:00 IMPRESSION: No acute intracranial abnormality. D/ / Lorraine Hampton MD / Lorraine Hampton MD Interpreting Provider: Lorraine Hampton MD Chest X-Ray 06/27/19 11:06 IMPRESSION: Findings as above likely related to congestive heart failure and edema. D/ / Lorraine Hampton MD / Lorraine Hampton MD Interpreting Provider: Lorraine Hampton MD <Hector Resendiz - Last Filed: 06/28/19 15:46> (1) Chest pain Qualifiers: Chest pain type: unspecified Qualified Code(s): R07.9 - Chest pain, unspecified (4) Aortic stenosis Qualifiers: Cardiac valve disease etiology: nonrheumatic Qualified Code(s): I35.0 - Nonrheumatic aortic (valve) stenosis (5) CAD (coronary artery disease) Qualifiers: Coronary Disease-Associated Artery/Lesion type: [place] artery [place] vs. transplanted heart: [place] heart Associated angina: without angina Qualified Code(s): I25.10 - Atherosclerotic heart disease of [place] coronary artery without angina pectoris (6) GERD (gastroesophageal reflux disease) Qualifiers: Esophagitis presence: without esophagitis Qualified Code(s): K21.9 - Gastro- esophageal reflux disease without esophagitis (7) Hypertension Qualifiers: Hypertension type: essential hypertension Qualified Code(s): I10 - Essential (primary) hypertension <Carlos Mccray - Last Filed: 06/28/19 16:31> (2) Chest pain Qualifiers: Chest pain type: unspecified Qualified Code(s): R07.9 - Chest pain, unspecified (4) Aortic stenosis Qualifiers: Cardiac valve disease etiology: nonrheumatic Qualified Code(s): I35.0 - Nonrheumatic aortic (valve) stenosis (5) CAD (coronary artery disease) Qualifiers: Coronary Disease-Associated Artery/Lesion type: [place] artery [place] vs. transplanted heart: [place] heart Associated angina: without angina Qualified Code(s): I25.10 - Atherosclerotic heart disease of [place] coronary artery without angina pectoris (6) GERD (gastroesophageal reflux disease) Qualifiers: Esophagitis presence: without esophagitis Qualified Code(s): K21.9 - Gastro- esophageal reflux disease without esophagitis (7) Hypertension Qualifiers: Hypertension type: essential hypertension Qualified Code(s): I10 - Essential (primary) hypertension
[2019-06-28] MEDS ORDERED: Isosorbide MONOnitrate (24 HR) 60 MG TAB.ER.24H PO SCH ×2 (09:00→20:13)
[2019-06-28] MEDS ORDERED: NON-FORMULARY MEDICATION 1 EACH EACH (Ezetimibe [Zetia] 10 MG) PO SCH (09:00)
--- NOTE | 2019-06-28 12:13 | Cardiology Consult Note ---
Date of Encounter: 06/28/19 Time of Encounter: 12:08 Assessment and Plan (1) Acute CHF Current Visit: Yes Status: Acute Newly diagnosed congestive heart failure. Prior TTE demonstrates normal LV systolic function from April 2019. Mild diastolic dysfunction described, which is expected at her age. Interestingly, TTE also suggested moderate to severe a ortic stenosis. Given the development of CHF and grade 3, late peaking systolic murmur on examination, progression to severe aortic stenosis is suggested chronically. Agree with repeat TTE. If aortic stenosis is severe, patient represents at least a moderate risk candidate for surgical aortic valve replacement. I suspect she would benefit from transcatheter aortic valve replacement evaluation if intervention is necessary. Currently, she seems to be euvolemic on examination. No longer on IV diuretics. CHF education provided. Further recommendations to follow repeat TTE. Qualifiers: Heart failure type: unspecified Qualified Code(s): I50.9 - Heart failure, unspecified (2) Aortic stenosis Current Visit: No Status: Acute See comments under CHF. Qualifiers: Cardiac valve disease etiology: nonrheumatic Qualified Code(s): I35.0 - Nonrheumatic aortic (valve) stenosis (3) Elevated troponin Current Visit: Yes Status: Acute Mild troponin elevation in the setting of CHF, possible significant aortic stenosis. Presentation is not consistent with ACS. (4) CAD (coronary artery disease) Current Visit: No Status: Chronic History of CAD, prior [facility] 08/2018 performed. Medical therapy was recommended. Agree with Coreg/statin/Endo-therapy. Currently she is on Plavix, okay to switch to aspirin. Qualifiers: Coronary Disease-Associated Artery/Lesion type: [place] artery [place] vs. transplanted heart: [place] heart Associated angina: without angina Qualified Code(s): I25.10 - Atherosclerotic heart disease of [place] coronary artery without angina pectoris Discussion w patient/family: The assessment and plan as outlined above was discussed with the patient and/or family members who expressed understanding and agreement. All questions were answered. Thank you for involving us in the care of your patient. Please call with any questions. History of Present Illness Consult date: 06/28/19 Requesting physician: Hector Resendiz Consult reason: CHF Chief complaint: Shortness of breath History of present illness: Ms. Renner is a 73 year old female who is a poor historian. She states she follows with Dr. Tavarez as an outpatient. She does report a history of CAD, 2 prior stents - none recently. Recent echocardiograms have demonstrated evidence of moderate to severe aortic stenosis. Per reports, she presented to the hospital with complaints of increasing shortness of breath, orthopnea. Chest x-ray demonstrated evidence of congestive heart failure. Family reports she has never been diagnosed with CHF in the past. Troponin 0.07, 0.06. BMP, potassium 3.3. CBC, hemoglobin 11.0. TTE 04/14/2019: LVEF 55%. Mild concentric LVH. Mild LV diastolic dysfunction. Normal RV size and function. Mild to moderate mitral regurgitation, tricuspid regurgitation, aortic regurgitation. Moderate to severe aortic stenosis (peak velocity 3.9 m/s, mean gradient 33 mmHg, dimensionless index 0.20, aortic valve area less than 1 7 cm). [facility] 08/31/2018: Left main normal. LAD proximal 25% stenosis, mid 40% in-stent restenosis. Circumflex distal 40% stenosis. RCA normal. TTE 07/10/2015: LVEF 60-65%. Normal LV, RV size and function. Trileaflet aortic valve with mild calcification of the right and left coronary cusp. Mild aortic regurgitation. Moderate aortic stenosis visually. Planimetry not well performed due to calcification and shadowing. Mild pulmonary hypertension. RVSP 40 mmHg. Past Med Surg Social Fam HX - Past Medical History Medical history: cancer, COPD, coronary artery disease, hyperlipidemia, hypertension, myocardial infarction, other Additional medical history: osterarthritis, gallstones, colon cancer Psychiatric history: no psych history - Past Surgical History Surgical History: angioplasty/stent, breast surgery, cholecystectomy, hysterectomy, knee replacement, other Additional surgical history: 2 cardiac stents - Social History Smoking Status: Former smoker Smokeless Tobacco Status: No Alcohol use: none Drug use: none - Family History Mother Living Status: Hx Family Cardiac Disorders: Yes Father Living Status: Hx Family Cardiac Disorders: Yes Sister Living Status: Still Living Brother Living Status: Still Living Hx Family Cardiac Disorders: Yes Medications and Allergies Losartan Potassium [Cozaar] 50 mg PO DAILY 12/20/15 [History] Ferrous Sulfate [Iron] 325 mg PO DAILY 11/09/18 [History] Isosorbide MONOnitrate (24 HR) [Imdur] 60 mg PO DAILY 06/27/19 [History] Montelukast [Singulair] 10 mg PO DAILY 06/27/19 [History] Oxybutynin Chloride [Ditropan XL] 5 mg PO DAILY 06/27/19 [History] Pantoprazole Sodium [Protonix] 40 mg PO DAILY 06/27/19 [History] Ranitidine HCl [Heartburn Relief] 150 mg PO DAILY 06/27/19 [History] Rosuvastatin Calcium [Crestor] 20 mg PO DAILY 06/27/19 [History] Carvedilol [Coreg] 25 mg PO BID 06/28/19 [History] Clopidogrel [Plavix] 75 mg PO DAILY 06/28/19 [History] Ezetimibe 10 mg PO DAILY 06/28/19 [History] Nitroglycerin [Nitrostat] 0.4 mg SL Q5M PRN MDD MAX 3 DOSES/15MINS 06/28/19 [History] Allergy/AdvReac Type Severity Reaction Status Date / Time No Known Allergies Allergy Verified 06/28/19 08:11 All Systems Review: The remainder of the systems were reviewed and are negative - Cardiovascular Cardiovascular: as per HPI Physical Examination Vital Signs, Last 4 Hours Temp Pulse Resp BP 06/28/19 11:01 97.6 F 61 14 120/64 General: Conversant, No Apparent Distress, Other (Poor historian. ) HEENT: Atraumatic, Normocephaly, Mucus Membranes Moist Neck: No JVD Cardiac: Reg Rate and Rhythm, Normal S1 and S2, Other (Grade 3 systolic murmur, mid to late peaking. Loudest upper respiratory border.) Lungs: Normal Breath Sounds, No Wheeze, Rales, Rhonchi, Other (Poor effort, otherwise appears clear on examination) Neuro: Alert and responsive, No focal deficits noted Abdomen: Soft, Non-Tender Skin: No rashes noted on visualized skin Musculoskeletal: No Chest Wall Tenderness Extremities: No Clubbing, No Cyanosis, No Edema Results 06/27/19 10:00 06/28/19 00:54 Lab Results 06/27/19 06/27/19 06/27/19 15:38 15:38 22:23 INR 1.3 Sodium Potassium Chloride Carbon Dioxide BUN Creatinine Glucose Calcium Magnesium 2.1 Troponin I 0.06 H* 0.07 H* TSH 0.760 06/28/19 06/28/19 00:54 10:14 INR Sodium 140 Potassium 3.3 L Chloride 99 Carbon Dioxide 30 H BUN 14 Creatinine 1.08 Glucose 87 Calcium 9.3 Magnesium Troponin I 0.06 H* TSH Consult Discharge Plan - Plan Referrals: Brody Robbins MD [Partnered Physician] - 08/09/19 3:00 pm ( ) Mo Chang MD [Primary Care Provider] -
--- NOTE | 2019-06-28 13:16 | Electrocardiograph Report ---
[address] [address] Test Date: 2019-06-27 Pat Name: Pepper Renner Department: [id number] Room: 3B12 Gender: F Receiving Weigher: : 1945 Requested By: Ermias Chadwick Order Number: [id number] Reading MD: Brody Root Measurements Intervals [place] Rate: 72 P: 56 [place]: 157 QRS: 43 QRSD: 95 T: 14 QT: 382 QTc: 418 Interpretive Statements Sinus rhythm Electronically Signed On 06-28-2019 13:15:32 EDT by Brody Root
[2019-06-28 15:02] LABS: Calcium 9.2 mg/dL (8.6-10.3); Potassium 4.1 mEq/L (3.5-5.1)
[2019-06-28] MEDS: Sennosides/Docusate Sodium TABLET PO SCH (21:10)
[2019-06-28] MEDS ORDERED: traMADol 50 MG TABLET PO ONE (21:43)
[2019-06-29] MEDS: *HR* Heparin 5,000 UNIT/ML VIAL SQ SCH ×2 (05:34→17:12)
[2019-06-29 06:16] LABS: Calcium 9.6 mg/dL (8.6-10.3); Potassium 4.2 mEq/L (3.5-5.1)
--- NOTE | 2019-06-29 07:35 | Internal Med Progress Note ---
<Hector Resendiz - Last Filed: 06/29/19 15:07> Hospitalist Progress Note - Encounter Date of Encounter: 06/29/19 - Exam Vitals: Temp Pulse Resp BP Pulse Ox 97.7 F 58 16 100/54 96 06/29/19 11:26 06/29/19 13:55 06/29/19 13:55 06/29/19 13:55 06/29/19 11:26 - Assessment and Plan (1) Chest pain Current Visit: Yes Status: Acute (2) Acute decompensated heart failure Current Visit: Yes Status: Acute (3) Elevated troponin Current Visit: Yes Status: Acute (4) Aortic stenosis Current Visit: No Status: Acute (5) CAD (coronary artery disease) Current Visit: No Status: Chronic (6) GERD (gastroesophageal reflux disease) Current Visit: No Status: Chronic (7) Hypertension Current Visit: No Status: Chronic (8) DVT prophylaxis Current Visit: No Status: Acute - Time Spent with Patient Total time spent is greater than 50% in coordination of care (as documented) at patient's floor/unit and/or counseling patient: Internal Medicine: Result - Labs CBC & Chem 7: 06/27/19 10:00 06/29/19 04:30 Labs: BMP 06/29/19 04:30 Sodium 139 Potassium 4.2 Chloride 99 Carbon Dioxide 30 H BUN 24 H Creatinine 1.18 Glucose 99 Calcium 9.6 - ABG Interpretation ABG results: PT/INR, D-dimer PT 14.5 Seconds (9.4-12.1) H 06/27/19 15:38 - Impressions Impressions Echocardiogram 06/28/19 18:02 Impressions: LVEF 55%. Mild left ventricular diastolic dysfunction. Mild concentric left ventricular hypertrophy. Moderate-severe aortic stenosis. Mild-moderate aortic regurgitation. Mild tricuspid regurgitation. No pulmonary hypertension. Left Ventricular Wall Motion: Rest Echo Findings All wall segments showed normal motion. Findings: Study Quality * Technically adequate exam. ECG Findings * Normal sinus rhythm. Left Ventricle * LVEF 55%. * Mild left ventricular diastolic dysfunction. * Mild concentric left ventricular hypertrophy. Right Ventricle * Normal right ventricular structure and function. Left Atrium * Normal left atrial size. Right Atrium * Normal right atrial size. Mitral Valve * Normal mitral valve structure. * No mitral stenosis. * Trace mitral regurgitation. Aortic Valve * Aortic valve leaflet morphology not well visualized. * Moderately calcified aortic valve leaflets. * Moderate-severe aortic stenosis. * Mild-moderate aortic regurgitation. Tricuspid Valve * Normal tricuspid valve structure. * Mild tricuspid regurgitation. * Estimated RA pressure is 3 mmHg. * Estimated RVSP is 27 mmHg. * No pulmonary hypertension. Pulmonic Valve * Pulmonic valve is not well visualized. * No pulmonic stenosis. * No pulmonic regurgitation. Pulmonary Artery * Pulmonary artery not well visualized. Aorta * Normally sized aortic root. * Proximal descending thoracic aorta not well visualized. Pericardium * There is no pericardial effusion present. Interatrial Septum * No evidence of PFO by color Doppler. IVC * Normal IVC dimensions and inspiratory collapse. Consult Discharge Plan - Plan Referrals: Brody Robbins MD [Partnered Physician] - 08/09/19 3:00 pm ( ) Mo Chang MD [Primary Care Provider] - 07/05/19 2:30 pm - Attending Attestation I saw evaluated and examined this patient and reviewed objective data including labs and my medical decision-making was reviewed with the Resident Physician/Medical Student. I agree with the documented findings, disposition and treatment plan as described except to any changes set forth below. We independently had [id number] contact with the patient. Daughters are present at bedside. Patient has no complaints. Daughters stated that her oxygen went lower to 89% overnight and so she put oxygen on her. Patient at this time denies chest pain, SOB, n/v, diaphoresis, palpitations. VS: reviewed; BP in lower/normal limits which is lower than her baseline. I/Os reviewed. Physical exam patient in no acute distress CVS: RRR, lungs; coarse rales at bases with good air exchange throughout. No extremity edema. Labs: reviewed. Slight increase in BUN and creatinine. 1) Chest pain 2) acute decompensated heart failure with preserved ejection fraction - suspect could be due to progressing aortic stenosis, 3) Elevated troponin 4) CAD 5) Aortic stenosis. Plan is for OLIVE tomorrow, continue gentle diuresis. Currently BP not tolerating any further diuretics when monitored throughout today as BP might fall too low. <Carlos Mccray - Last Filed: 06/29/19 16:52> Hospitalist Progress Note - Encounter Date of Encounter: 06/29/19 Time of Encounter: 08:10 - Subjective Interval History: Ms. Renner is a 73YOF with history of CAD with stents, moderate aortic stenosis, hypertension, hyperlipidemia presented to ED for dizziness and chest pain. he had workup here for chest pain with a stress test 08/29/2018 showing moderate ischemic changes at inferior and lateral wall. She had a left heart catheter done 08/31/2018 which showed moderate nonobstructive CAD, moderate . 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 Patient had some chest pain overnight. Patient's daughter states her blood pressure was running pretty low last night and worried her. - Exam Vitals: Temp Pulse Resp BP Pulse Ox 98.1 F 66 14 118/68 98 06/29/19 06:38 06/29/19 06:38 06/29/19 06:38 06/29/19 06:38 06/29/19 06:38 Exam: General: NAD, AOx3. 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 CV: RRR, S1 and S2 auscultated, no S3 or S4 auscultated. systolic murmur, no gallop, or rubs Resp: Equal chest rise and fall. rales present. no rhonchi or wheezes Abdomen: Normal bowel sounds x4, non-distended, non-tender, no rebound or guarding. Extremities: equal pulses bilaterally, no edema. Neuro: cranial nerves grossly intact. alert and oriented x3. no focal deficits Skin: warm, dry, intact. Psych: normal mentation and mood - Assessment and Plan (1) Acute decompensated heart failure Current Visit: Yes Status: Acute Assessment and Plan: TTE findings reviewed -Cardiology consulted, plan to do OLIVE tomorrow (07/02) for better visualization. - Strict I/Os - Daily weights - Lasix held yesterday (06/28) due to receiving 40mg 06/27 and having significant (2.3L) of output last two days. Lasix will be given again today. -Will continue to monitor fluid status closely due to known aortic stenosis. -Incentive spirometry (2) Chest pain Current Visit: Yes Status: Acute Assessment and Plan: -Troponins adynamic -repeated TTE, results reviewed -Cardiology consulted, OLIVE scheduled for tomorrow (06/30) -PRN nitro -HTN and fluid overload control with caution due to aortic stenosis. -Will give lasix today (06/29) (3) Elevated troponin Current Visit: Yes Status: Acute Assessment and Plan: Workup as above -Troponin adynamic (4) Aortic stenosis Current Visit: No Status: Acute Assessment and Plan: Echocardiogram 04/14/2019 showing moderate-severe . Workup as above. -Monitor fluid status as above -Per cardiology, plan to do OLIVE tomorrow (06/30) (5) CAD (coronary artery disease) Current Visit: No Status: Chronic Assessment and Plan: Resume home medications (6) GERD (gastroesophageal reflux disease) Current Visit: No Status: Chronic Assessment and Plan: Prilosec and pepcid (7) Hypertension Current Visit: No Status: Chronic Assessment and Plan: Resume home medications DVT Prophylaxis: SQ heparin - Summary of Assessment and Plan Summary of Assessment and Plan: As above - Time Spent with Patient Total time spent is greater than 50% in coordination of care (as documented) at patient's floor/unit and/or counseling patient: Internal Medicine: Result - Labs CBC & Chem 7: 06/27/19 10:00 06/29/19 04:30 Labs: BMP 06/28/19 06/29/19 14:14 04:30 Sodium 136 139 Potassium 4.1 4.2 Chloride 98 99 Carbon Dioxide 32 H 30 H BUN 20 24 H Creatinine 1.15 1.18 Glucose 104 99 Calcium 9.2 9.6 Cardiac Enzymes 06/28/19 Range/Units 10:14 Troponin I 0.06 H* (< 0.04) ng/mL - ABG Interpretation ABG results: PT/INR, D-dimer PT 14.5 Seconds (9.4-12.1) H 06/27/19 15:38 <Hector Resendiz - Last Filed: 06/29/19 15:07> (1) Chest pain Qualifiers: Chest pain type: unspecified Qualified Code(s): R07.9 - Chest pain, unspecified (4) Aortic stenosis Qualifiers: Cardiac valve disease etiology: nonrheumatic Qualified Code(s): I35.0 - Nonrheumatic aortic (valve) stenosis (5) CAD (coronary artery disease) Qualifiers: Coronary Disease-Associated Artery/Lesion type: [place] artery [place] vs. transplanted heart: [place] heart Associated angina: without angina Qualified Code(s): I25.10 - Atherosclerotic heart disease of [place] coronary artery without angina pectoris (6) GERD (gastroesophageal reflux disease) Qualifiers: Esophagitis presence: without esophagitis Qualified Code(s): K21.9 - Gastro- esophageal reflux disease without esophagitis (7) Hypertension Qualifiers: Hypertension type: essential hypertension Qualified Code(s): I10 - Essential (primary) hypertension <Carlos Mccray E - Last Filed: 06/29/19 16:52> (2) Chest pain Qualifiers: Chest pain type: unspecified Qualified Code(s): R07.9 - Chest pain, unspecified (4) Aortic stenosis Qualifiers: Cardiac valve disease etiology: nonrheumatic Qualified Code(s): I35.0 - Nonrheumatic aortic (valve) stenosis (5) CAD (coronary artery disease) Qualifiers: Coronary Disease-Associated Artery/Lesion type: [place] artery [place] vs. transplanted heart: [place] heart Associated angina: without angina Qualified Code(s): I25.10 - Atherosclerotic heart disease of [place] coronary artery without angina pectoris (6) GERD (gastroesophageal reflux disease) Qualifiers: Esophagitis presence: without esophagitis Qualified Code(s): K21.9 - Gastro- esophageal reflux disease without esophagitis (7) Hypertension Qualifiers: Hypertension type: essential hypertension Qualified Code(s): I10 - Essential (primary) hypertension
[2019-06-29] MEDS: Sennosides/Docusate Sodium TABLET PO SCH ×2 (08:08→20:29)
[2019-06-29] MEDS: Famotidine 20 MG TABLET PO SCH (08:09)
--- NOTE | 2019-06-29 13:25 | Cardiology Progress Note ---
Date of Encounter: 06/29/19 Time of Encounter: 13:23 Assessment and Plan (1) Acute CHF Current Visit: Yes Status: Acute New CHF. Clincally, seems to be feeling better. ? manifestation of significant . Given diuretics IV yesterday, seems improved today. Continue supportive care. CHF education provided. Qualifiers: Heart failure type: unspecified Qualified Code(s): I50.9 - Heart failure, unspecified (2) Aortic stenosis Current Visit: No Status: Acute Probable severe by TTE. AV calcified, leaflets not well visualized. By Doppler, peak velocity 3.9 m/s, MG 36 mmHg, DVI 0.22. Today, we discussed the r/b/a to a OLIVE better visualized AV. Patient and family voiced understanding, wish to proceed. Plan for AM. If significant , she would be agreeable to diagnostic LHC in preparation for TAVR evaluation. Qualifiers: Cardiac valve disease etiology: nonrheumatic Qualified Code(s): I35.0 - Nonrheumatic aortic (valve) stenosis (3) Elevated troponin Current Visit: Yes Status: Acute Mild troponin elevation in the setting of CHF, possible significant aortic stenosis. Presentation is not consistent with ACS. (4) CAD (coronary artery disease) Current Visit: No Status: Chronic History of CAD, prior LHC 08/2018 performed. Medical therapy was recommended. Agree with Coreg/statin/Endo-therapy. Currently she is on Plavix, okay to switch to aspirin. Qualifiers: Coronary Disease-Associated Artery/Lesion type: [place] artery [place] vs. transplanted heart: [place] heart Associated angina: without angina Qualified Code(s): I25.10 - Atherosclerotic heart disease of [place] coronary artery without angina pectoris Discussion w patient/family: The assessment and plan as outlined above was discussed with the patient and/or family members who expressed understanding and agreement. All questions were answered. Thank you for involving us in the care of your patient. Please call with any questions. Subjective Principal diagnosis: CHF Interval history: Overall, reports she feels better. No chest pain. Orthopnea improved. Remains on 2L NC. TTE reviewed - moderate to severe per reports. I reviewed images. Although not listed in report, AV peak velocity 4.9 m/s, mean gradient 36 mmHg, DVI 0.22. Objective Vital Signs, Last 4 Hours Temp Pulse Resp BP Pulse Ox 06/29/19 11:26 97.7 F 61 15 101/65 96 Results 06/27/19 10:00 06/29/19 04:30 Lab Results 06/28/19 06/29/19 14:14 04:30 Sodium 136 139 Potassium 4.1 4.2 Chloride 98 99 Carbon Dioxide 32 H 30 H BUN 20 24 H Creatinine 1.15 1.18 Glucose 104 99 Calcium 9.2 9.6 - Imaging and Cardiology Chest Xray: report reviewed Echo: report reviewed - EKG Interpretation EKG results cardiology: personally reviewed Consult Discharge Plan - Plan Referrals: Brody Robbins MD [Partnered Physician] - 08/09/19 3:00 pm ( ) Mo Chang MD [Primary Care Provider] - 07/05/19 2:30 pm
--- NOTE | 2019-06-29 15:56 | Electrocardiograph Report ---
[place] [id number] Test Date: 2019-06-28 Pat Name: Pepper Renner Department: 113 Room: 2A Gender: F [employer]: : 1945 Requested By: Shun Davis Order Number: [id number] Reading MD: Letha Zarate Measurements Intervals [place] Rate: 64 P: 37 NH: 149 QRS: -6 QRSD: 86 T: 21 QT: 394 QTc: 404 Interpretive Statements SINUS RHYTHM MODERATE VOLTAGE CRITERIA FOR LVH, CONSIDER NORMAL VARIANT Electronically Signed On 06-29-2019 15:54:30 EDT by Letha Zarate
[2019-06-30] MEDS: *HR* Heparin 5,000 UNIT/ML VIAL SQ SCH ×2 (04:18→16:45)
[2019-06-30 06:02] LABS: Calcium 9.4 mg/dL (8.6-10.3); Potassium 4.6 mEq/L (3.5-5.1)
[2019-06-30] MEDS: Sennosides/Docusate Sodium TABLET PO SCH ×2 (08:17→21:01)
[2019-06-30] MEDS: Famotidine 20 MG TABLET PO SCH (08:17)
--- NOTE | 2019-06-30 09:31 | Event Note ---
Date of Encounter: 06/30/19 Time of Encounter: 09:30 - Cardiology Event Note Laboratory Tests 06/30/19 04:47 Creatinine 1.09 Est GFR (Non-Af Amer) 49 L Discussed and reviewed with Dr. Mcqueen, plan for OLIVE today. If significant aortic stenosis, recs for left heart catheterization today as well. Patient and family agreeable to both procedures and willing to sign both consents. Patient also willing to withhold DNR status for 24 hours for procedures. HAS-BLED Score - Score Elderly: Age>65 years Medication usage predisposing to bleeding: Antiplatelet agents, NSAIDs, Anticoagulants Score: 2
--- NOTE | 2019-06-30 09:50 | Internal Med Progress Note ---
<Carlos Mccray - Last Filed: 06/30/19 09:47> Hospitalist Progress Note - Encounter Date of Encounter: 06/30/19 Time of Encounter: 09:15 - Subjective Interval History: Ms. Renner is a 73YOF. Patient's family x3 in the room. Patient's family states that cardiology was in and told them that she would be receiving her OLIVE today and hopefully a left heart cath as well. Patient has no acute complaints, denies any additional chest pain, shortness of breath, nausea, vomiting. Patient's family worried about patient's blood pressure, would like it to be checked again before any procedures. - Exam Vitals: Temp Pulse Resp BP Pulse Ox 98.0 F 68 18 128/78 96 06/30/19 07:45 06/30/19 07:45 06/30/19 07:45 06/30/19 07:45 06/30/19 08:21 Exam: General: alert and oriented x3, no acute distress. 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 systolic murmur, no gallop, or rubs Resp: Equal chest rise and fall. good respiratory effort, good air flow Abdomen: Normal bowel sounds x4, non-distended, non-tender, no rebound or guarding. Extremities: equal pulses bilaterally, no edema. Neuro: cranial nerves grossly intact. alert and oriented x3. no focal deficits Skin: warm, dry, intact. Psych: normal mentation and mood - Assessment and Plan (1) Acute decompensated heart failure Current Visit: Yes Status: Acute Assessment and Plan: TTE findings reviewed -Cardiology consulted, plan to perform OLIVE today, If significant aortic stenosis, recs for left heart catheterization today as well. - Strict I/Os - Daily weights - Lasix held due to blood pressure being unable to tolerate it. -Will continue to monitor fluid status closely due to known aortic stenosis. -Incentive spirometry (2) Chest pain Current Visit: Yes Status: Acute Assessment and Plan: -Troponins adynamic -repeated TTE, results reviewed -Cardiology consulted, OLIVE scheduled for today, if significant aortic stenosis present, plan to do left heart cath as well. -PRN nitro -HTN and fluid overload control with caution due to aortic stenosis. -Lasix held due to blood pressure not tolerating it. (3) Elevated troponin Current Visit: Yes Status: Acute Assessment and Plan: Workup as above, troponin adynamic (4) Aortic stenosis Current Visit: Yes Status: Acute Assessment and Plan: Echocardiogram 04/14/2019 showing moderate-severe . Workup as above. -Monitor fluid status as above -Per cardiology, plan to do OLIVE today, and if significant aortic stenosis pr esent, will do left heart cath as well (5) CAD (coronary artery disease) Current Visit: Yes Status: Chronic Assessment and Plan: Continue home dosage of medications (6) GERD (gastroesophageal reflux disease) Current Visit: Yes Status: Chronic Assessment and Plan: Prilosec and pepcid (7) Hypertension Current Visit: Yes Status: Chronic Assessment and Plan: Continue home medications monitor vitals closely. DVT Prophylaxis: SQ heparin - Summary of Assessment and Plan Summary of Assessment and Plan: As above - Time Spent with Patient Total time spent is greater than 50% in coordination of care (as documented) at patient's floor/unit and/or counseling patient: Internal Medicine: Result - Labs CBC & Chem 7: 06/27/19 10:00 06/30/19 04:47 Labs: BMP 06/30/19 04:47 Sodium 137 Potassium 4.6 Chloride 101 Carbon Dioxide 29 BUN 21 Creatinine 1.09 Glucose 101 Calcium 9.4 - ABG Interpretation ABG results: PT/INR, D-dimer PT 14.5 Seconds (9.4-12.1) H 06/27/19 15:38 - Impressions Impressions Echocardiogram 06/28/19 18:02 Impressions: LVEF 55%. Mild left ventricular diastolic dysfunction. Mild concentric left ventricular hypertrophy. Moderate-severe aortic stenosis. Mild-moderate aortic regurgitation. Mild tricuspid regurgitation. No pulmonary hypertension. Left Ventricular Wall Motion: Rest Echo Findings All wall segments showed normal motion. Findings: Study Quality * Technically adequate exam. ECG Findings * Normal sinus rhythm. Left Ventricle * LVEF 55%. * Mild left ventricular diastolic dysfunction. * Mild concentric left ventricular hypertrophy. Right Ventricle * Normal right ventricular structure and function. Left Atrium * Normal left atrial size. Right Atrium * Normal right atrial size. Mitral Valve * Normal mitral valve structure. * No mitral stenosis. * Trace mitral regurgitation. Aortic Valve * Aortic valve leaflet morphology not well visualized. * Moderately calcified aortic valve leaflets. * Moderate-severe aortic stenosis. * Mild-moderate aortic regurgitation. Tricuspid Valve * Normal tricuspid valve structure. * Mild tricuspid regurgitation. * Estimated RA pressure is 3 mmHg. * Estimated RVSP is 27 mmHg. * No pulmonary hypertension. Pulmonic Valve * Pulmonic valve is not well visualized. * No pulmonic stenosis. * No pulmonic regurgitation. Pulmonary Artery * Pulmonary artery not well visualized. Aorta * Normally sized aortic root. * Proximal descending thoracic aorta not well visualized. Pericardium * There is no pericardial effusion present. Interatrial Septum * No evidence of PFO by color Doppler. IVC * Normal IVC dimensions and inspiratory collapse. Consult Discharge Plan - Plan Referrals: Brody Robbins MD [Partnered Physician] - 08/09/19 3:00 pm ( ) Mo Chang MD [Primary Care Provider] - 07/05/19 2:30 pm <Rasheed Jacobs - Last Filed: 06/30/19 12:43> Hospitalist Progress Note - Encounter Date of Encounter: 06/30/19 Time of Encounter: 10:25 - Subjective Interval History: Patient is awake and alert. Denies any new complaints at this time. No chest pain or palpitations. No shortness of breath. Patient is awaiting OLIVE today. Has been nothing by mouth overnight. - Exam Vitals: Temp Pulse Resp BP Pulse Ox 97.8 F 59 18 119/60 96 06/30/19 12:03 06/30/19 12:03 06/30/19 12:03 06/30/19 12:03 06/30/19 08:21 Exam: General: Patient is alert, no acute distress, oriented x 3 Respiratory: Basal crackles present mainly in the left side Cardiovascular: Regular rate and rhythm. s1 and s2 normal ,ejection systolic murmur. No pedal edema Abdomen: Abdomen is soft, nontender. Bowel sounds are present Musculoskeletal: Spontaneously moving all extremities Skin: warm, dry, intact. Neuro: Alert oriented x 3 normal cranial nerves, no focal deficits - Assessment and Plan (1) Acute decompensated heart failure Current Visit: Yes Status: Acute (2) Chest pain Current Visit: Yes Status: Acute (3) Elevated troponin Current Visit: Yes Status: Acute (4) Aortic stenosis Current Visit: Yes Status: Acute (5) CAD (coronary artery disease) Current Visit: Yes Status: Chronic (6) GERD (gastroesophageal reflux disease) Current Visit: Yes Status: Chronic (7) Hypertension Current Visit: Yes Status: Chronic (8) DVT prophylaxis Current Visit: No Status: Acute - Time Spent with Patient Total time spent is greater than 50% in coordination of care (as documented) at patient's floor/unit and/or counseling patient: Internal Medicine: Result - Labs CBC & Chem 7: 06/27/19 10:00 06/30/19 04:47 Labs: BMP 06/30/19 04:47 Sodium 137 Potassium 4.6 Chloride 101 Carbon Dioxide 29 BUN 21 Creatinine 1.09 Glucose 101 Calcium 9.4 - ABG Interpretation ABG results: PT/INR, D-dimer PT 14.5 Seconds (9.4-12.1) H 06/27/19 15:38 - Attending Attestation I saw evaluated and examined this patient and reviewed objective data including labs and my medical decision-making was reviewed with the Medical Student. I agree with the documented findings, disposition and treatment plan as described except to any changes set forth below. We independently had [id number] contact with the patient. Acute on chronic diastolic congestive heart failure: Improving. Patient is currently on room air. Saturating at 96%. No pedal edema noted. Is able to lie down flat in bed. Has had -3.3 L fluid balance. Moderate to severe aortic stenosis: Plan for OLIVE today. We will await results and possible left heart catheterization. Cardiology following. Chest pain: Now resolved. Troponins have been adynamic. Not consistent with ACS per cardiology. Coronary artery disease: Continue Plavix, carvedilol, losartan and Crestor. DVT prophylaxis with subcutaneous heparin <Carlos Mccray E - Last Filed: 06/30/19 09:47> (2) Chest pain Qualifiers: Chest pain type: unspecified Qualified Code(s): R07.9 - Chest pain, unspecified (4) Aortic stenosis Qualifiers: Cardiac valve disease etiology: nonrheumatic Qualified Code(s): I35.0 - Nonrheumatic aortic (valve) stenosis (5) CAD (coronary artery disease) Qualifiers: Coronary Disease-Associated Artery/Lesion type: [place] artery [place] vs. transplanted heart: [place] heart Associated angina: without angina Qualified Code(s): I25.10 - Atherosclerotic heart disease of [place] coronary artery without angina pectoris (6) GERD (gastroesophageal reflux disease) Qualifiers: Esophagitis presence: without esophagitis Qualified Code(s): K21.9 - Gastro- esophageal reflux disease without esophagitis (7) Hypertension Qualifiers: Hypertension type: essential hypertension Qualified Code(s): I10 - Essential (primary) hypertension <Rasheed Jacobs - Last Filed: 06/30/19 12:43> (2) Chest pain Qualifiers: Chest pain type: unspecified Qualified Code(s): R07.9 - Chest pain, unspecified (4) Aortic stenosis Qualifiers: Cardiac valve disease etiology: nonrheumatic Qualified Code(s): I35.0 - Nonrheumatic aortic (valve) stenosis (5) CAD (coronary artery disease) Qualifiers: Coronary Disease-Associated Artery/Lesion type: [place] artery [place] vs. transplanted heart: [place] heart Associated angina: without angina Qualified Code(s): I25.10 - Atherosclerotic heart disease of [place] coronary artery without angina pectoris (6) GERD (gastroesophageal reflux disease) Qualifiers: Esophagitis presence: without esophagitis Qualified Code(s): K21.9 - Gastro- esophageal reflux disease without esophagitis (7) Hypertension Qualifiers: Hypertension type: essential hypertension Qualified Code(s): I10 - Essential (primary) hypertension
[2019-06-30] MEDS ORDERED: Lidocaine Viscous Oral Soln 15 ML SOLUTION MM PRN (12:01)
[2019-06-30] MEDS ORDERED: 0.9 % Sodium Chloride 500 ML IVC ONE (12:02)
[2019-06-30] MEDS: *HR* Midazolam HCl 5 MG/5 ML VIAL IVP PRN ×2 (12:35→12:40)
[2019-06-30] MEDS: *HR* FentaNYL (PF) 100 MCG/2 ML VIAL IVP PRN ×2 (12:35→12:40)
[2019-06-30] MEDS ORDERED: Heparin 1,000 UNITS/500 mL 500 ML ONE (13:25)
[2019-06-30] MEDS ORDERED: Iopamidol 125 ML INFUS..BTL ONE ×2 (13:25→13:51)
[2019-06-30] MEDS ORDERED: 0.9 % Sodium Chloride 1,000 ML ONE (13:25)
[2019-06-30] MEDS ORDERED: *HR* Heparin 10,000 UNIT/10 ML VIAL ONE (13:25)
[2019-06-30] MEDS ORDERED: Nitroglycerin 1,000 MCG/10 ML VIAL IV ONE (13:25)
--- NOTE | 2019-06-30 13:38 | Event Note ---
Date of Encounter: 06/30/19 Time of Encounter: 13:30 - Cardiology Event Note Per Dr. Mcqueen, OLIVE with Severe with recs for [facility] today to further eval for TAVR.
[2019-06-30] MEDS ORDERED: *HR* Midazolam HCl 2 MG/2 ML VIAL ONE (13:43)
[2019-06-30] MEDS ORDERED: *HR* FentaNYL (PF) 100 MCG/2 ML VIAL ONE (13:44)
--- NOTE | 2019-06-30 14:04 | Event Note ---
Date of Encounter: 06/30/19 Time of Encounter: 14:03 OLIVE performed. Moderately calcified aortic valve leaflets with severely reduced excursion. Polimetry measurements < 1 cm2. Results reviewed with family. Plan for LHC in preparation for outpatient TAVR evaluation. Consent obtained for OLIVE and LHC this morning. All questions answered.
--- NOTE | 2019-06-30 14:25 | Invasive Diagnostic Lab Proc ---
Name: Pepper Renner Date of Study: 06/30/2019 Date: 1945 Ht: 59.1in Medical Record#: [id number] Age: 73 Wt: 145.51lb Gender: Female BSA: 1.61 Order #: [id number] BMI: 29.33 Physicians Procedure Physician: Brody Root MD, [facility] Referring MD: Referring MD: Staff Name Position Time In Cuate Maysci RN Monitor 01:45 PM Hue Willard RN Compensation Programs Manager 01:45 PM [facility], Emma RT (R) Scrub 01:45 PM Indications Indication ACS <= 24 hrs Procedures Performed Procedure CORONARY ARTERY ANGIO S&I Pre-Procedure Checklist Informed consent is complete signed and on chart. H&P is on chart. ID band is on and ID verified with patient. Patient NPO for procedure The procedure was described for the patient and questions were answered. Blood Pressure: 119/60 ECG is on chart. Rhythm: NSR Plan of Care Patient will tolerate the procedure without complications. Adequate level of comfort will be maintained. Hemodynamics will remain stable Patient will recover from procedure without complications. Respiratory function will be maintained. Cardiac rhythm will remain stable. Patient temperature will be maintained. Patient and/or family have verbalized understanding of the procedure. Patient Education Chief Complaint/Reason for Test: Cardiac Cath Developmental Category: Geriatric (65+ years) Developmentally Appropriate for Age: Yes Learning Barriers: None Education Needs: Procedure Education Method: Verbal Information Taught: Cardiac Cath Educational Evaluation: Able to repeat information Intravenous Access Time IV Size Location DC'd Fluid/Drip Rate Units RN 01:29 PM 18g 1 /" Patent On Arrival Rt Antecubital 0.9NaCl 25 ml/hr Hue Willard RN Allergies No Known Allergies Vital Signs Time BP (mmHg) HR (bpm) O2 Sat. RR (bpm) LOC 01:30 PM 119 / 60 59 96 % 18 5 = Fully awake and oriented or at pre-proc level 01:45 PM / % 4 = Oriented but drowsy 01:46 PM / % 4 = Oriented but drowsy 01:43 PM 110 / 55 59 % 15 01:48 PM 122 / 61 62 99 % 20 01:53 PM 119 / 53 62 97 % 13 01:58 PM 119 / 56 63 98 % 14 02:03 PM 120 / 58 64 99 % 13 02:08 PM 122 / 57 68 99 % 13 Procedural Medications Time Medication Dose Units Method Given By 01:45 PM Oxygen 2 L/min nasal cannula Hue Willard RN 01:48 PM Versed 1 mg Intravenous Hue Willard RN 01:48 PM Fentanyl 25 mcg Intravenous Hue Willard RN 01:56 PM Lidocaine 2% 20 ml Subcutaneous Brody Root MD, [facility] Matt Score Preprocedure Postprocedure Activity 2- Moves 4 extremities sustained head lift Activity 2- Moves 4 extremities sustained head lift Circulation 2- SBP +/= 20 points of pre-anesthetic level Circulation 2- SBP +/= 20 points of pre-anesthetic level Consciousness 2- Awake and alert oriented x 3 Consciousness 2- Awake and alert oriented x 3 O2 Saturation 2- Able to maintain O2 satruation of 92% on room air O2 Saturation 2- Able to maintain O2 satruation of 92% on room air Respiratory 2- Able to deep breathe and cough well Respiratory 2- Able to deep breathe and cough well Total Score 10 Total Score 10 Contrast Agent: Isovue Diagnostic Contrast: 28 ml Total Contrast: 28 ml Fluoro Dose: 10 mGy Procedure Log Time Note Enter By 01:30 PM Pt arrived to label stitcher 2 at 13:30 scoates 01:33 PM CathStat 01:42 PM Vitals capture started with the following parameters, Patient=Adult, Interval=5 min, Initial Kwfydhsr=555 mmHg, Deflation Rate=3 mmHg, Cuff placed on Right Arm 01:43 PM HR=59 bpm, TEJS=487/55 mmhg, Resp=15 B/min 01:45 PM Kayla Mays RN Position: Monitor Time in: 13:45 kmavis :45 PM Hue Willard RN Position: Compensation Programs Manager Time in: 13:45 kmavis :45 PM Emma Becerra RT (R) Position: Scrub Time in: 13:45 kmavis 01:45 PM Patient charges- Angio tray pack, Navilyst 3mm J, Pulse Oximetry and ACIST tubing and transducer kmavis 01:45 PM Case Delayed No kmavis 01:45 PM Physician arrived 13:45 kmavis 01:45 PM Meet and angel completed kmavis 01:45 PM Sign in performed according to hospital policy. Informed consent was obtained. kmavis :45 PM Time: 13:45 Oxygen on at 2 L/min per nasal cannula by Hue Willard RN kmavis 01:45 PM Time: 13:45 Patient comfortable and pain free: Yes kmavis 01:46 PM Time: 13:45LOC: 4 = Oriented but drowsy kmavis 01:47 PM Procedure start 13:47 kmavis 01:48 PM Recorded ECG: HR=62 Condition=Condition 1 01:48 PM Time: 13:48 Versed 1 mg Intravenous Given by Hue Willard RN kmavis :48 PM HR=62 bpm, MAGP=203/61 mmhg, SpO2=99.0 %, Resp=20 B/min 01:48 PM Time: 13:48 Fentanyl 25 mcg Intravenous Given by Hue Willard RN kmavis 01:52 PM Pressure channel 1 zeroed. 01:53 PM HR=62 bpm, JYMF=053/53 mmhg, SpO2=97 %, Resp=13 B/min 01:55 PM Time out was performed according to hospital policy. Conscious sedation and anesthesia was achieved (see medication log with in this report above) kmavis 01:56 PM Time: 13:56 20 ml Lidocaine 2% to right groin Subcutaneous Given by Brody Root MD, [facility] kmavis 01:58 PM Access obtained by percutaneous puncture. 5Fr 10cm Terumo Idabel sheath placed in right Femoral artery. [id number] kmavis 01:58 PM 5Fr FL 4 catheter inserted over the wire [facility] kmavis :58 PM 0.035 145cm Navilyst 3mmJ wire [id number] avis :58 PM LCA angiography performed in multiple views. avis :58 PM HR=63 bpm, JXVH=459/56 mmhg, SpO2=98.0 %, Resp=14 B/min, EtCO2=47 mmHg, Comment=nsr 01:59 PM Recorded Pressure: Ao, HR=61, Condition=Condition 1 (Aorta) Ao 97/56/74 02:00 PM Catheter removed kmavis 02:00 PM 5Fr FR 4 [facility] 02[facility] PM Time: 13:45 Patient comfortable and pain free: Yes kmavis 02:01 PM Time: 13:46LOC: 4 = Oriented but drowsy kmavis 02:01 PM Lesion found in Proximal LAD. Pre Stenosis: 20 Pre KWABENA Flow: kmavis 02:01 PM Lesion found in Mid LAD. Pre Stenosis: 40 Pre KWABENA Flow: kmavis 02:01 PM RCA angiography performed in multiple views. kmavis 02:02 PM Recorded Pressure: Ao, HR=65, Condition=Condition 1 (Aorta) Ao 95/56/75 02:02 PM Coronary Dominance: Left kmavis 02:02 PM Lesion found in Proximal RCA. Pre Stenosis: 30 Pre KWABENA Flow: kmavis 02:02 PM Catheter removed kmavis 02:02 PM 5Fr Pigtail catheter inserted over the wire [facility] kmavis 02:03 PM HR=64 bpm, DEJK=611/58 mmhg, SpO2=99.0 %, Resp=13 B/min 02:04 PM Catheter removed kmavis 02:04 PM Bolus angiogram of right Femoral complete: 4 ml/sec for a total of 7 mls kmavis 02:05 PM Procedure completed at 14:05 06/30/2019 kmavis 02:05 PM Did you address KWABENA flow and Dominance? YesCoronary Dominance: Left kmavis 02:06 PM Sign out completed: Radiation Dose 70.69 mGy, 9.69 Gy/cm2 Fluoro Time: 1.5 Isovue 370 - 200ml contrast 28 ml given by Brody Root MD, [facility]. Complications: None. 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 Sedation minutes 20. Cardiac Rehab Consult needed: No. Confirmed administered medications: Yes kmavis 02:06 PM Isovue 370 - 200ml,1 Bottle(s) used. kmavis 02:07 PM Arterial sheath pulled, Mynx closure device used and was Successful [id number] S/N. kmavis 02:07 PM Estimated Blood Loss: minimal kmavis 02:07 PM Post Blood Pressure 120/58 kmavis 02:07 PM Information taught Cardiac Cath and Mynx kmavis 02:07 PM Education needs Procedure, Plan of Care, and Disease Process kmavis 02:07 PM Learning barriers :None kmavis 02:07 PM Education Methods Verbal kmavis 02:08 PM Education evaluation Able to repeat information kmavis 02:08 PM Site status No bleeding/ No Hematoma - Rt Groin as reported by Sites, Emma RT (R) at 14:08 kmavis 02:08 PM Opsite applied kmavis 02:08 PM HR=68 bpm, HLAS=086/57 mmhg, SpO2=99.0 %, Resp=13 B/min 02:10 PM Plavix, Effient or Brilinta given No kmavis 02:11 PM Report given to Loly RICHARDSON Pt taken to 2A Room #38. 14:10 kmavis 02:12 PM Delay to floor No kmavis 02:12 PM Patient out of room: 14:12 kmavis 02:13 PM Family placed in consult room. kmavis 02:13 PM Complications: None kmavis 02:13 PM Vitals capture stopped. Complications Complication None None Hemodynamics Pressures Site Systolic/A Wave Diastolic/V Wave Mean AO 97 56 74 AO 95 56 75 Post Procedure Information Blood Pressure: 120/58 mmHg Post procedural instructions were given Closure Device Time Device Success/Fail 06/30/2019 2:13:00 PM MynxGrip Successful Site Checks Time Location Status Staff Sheath In? Note 02:08 PM Rt Groin No bleeding/ No Hematoma Sites, Emma RT (R) Pulses Time Site Pre-Procedure Post-Procedure Note 06/30/2019 1:30:00 PM Bilateral DP & PT 1+ 06/30/2019 1:30:00 PM Bilateral radial 2+ Updated by Kayla Mays RN on 06/30/2019 2:16:10 PM electronically signed on 06/30/2019 2:17:09 PM with status of Final
--- NOTE | 2019-06-30 17:37 | Electrocardiograph Report ---
[employer] Test Date: 2019-06-27 Pat Name: Pepper Renner Department: EXAM20 Room: [facility] Gender: F Clinical Analyst: : 1945 Requested By: Lc Marin Order Number: [id number] Reading MD: Mart Dias Measurements Intervals [place] Rate: 61 P: 56 WA: 160 QRS: 43 QRSD: 92 T: 9 QT: 420 QTc: 423 Interpretive Statements Sinus rhythm Electronically Signed On 06-30-2019 17:36:17 EDT by Mart Dias
[2019-07-01 05:28] LABS: BUN/Creatinine Ratio 19 (6-26); Blood Urea Nitrogen 18 mg/dL (8-23); Calcium 9.4 mg/dL (8.6-10.3); Carbon Dioxide 33 mEq/L (23-29); Chloride 100 mEq/L (98-107); Glucose 115 mg/dL (70-105); Osmolality,Calculated 287 (280-300); Potassium 4.2 mEq/L (3.5-5.1); Sodium 137 mEq/L (136-145); eGFR For African Americans > 60 (> 60); eGFR For Non-African Americans 57 (> 60)
[2019-07-01] MEDS: *HR* Heparin 5,000 UNIT/ML VIAL SQ SCH (06:49)
--- NOTE | 2019-07-01 08:43 | Cardiology Progress Note ---
Date of Encounter: 07/01/19 Time of Encounter: 08:45 Assessment and Plan (1) Aortic stenosis Current Visit: Yes Status: Acute Per Cardiology: S/p OLIVE: Impressions: LVEF 60%. Normal LV chamber size. Mild concentric left ventricular hypertrophy. Right ventricle was normal in size and systolic function. Moderately calcified, trileaflet aortic valve with severely reduced excursion. Severe aortic stenosis. Planimetry 0.6 cm2. Mild aortic regurgitation. Mild tricuspid regurgitation. No pulmonary hypertension identified. Left Ventricular Wall Motion: Transesophageal Echo Findings All wall segments showed normal motion. Discussed and reviewed with Dr. Mcqueen, recommendations for evaluation for TAVR. Patient and family requesting referral to [facility]. Will coordinate in outpatient setting, cardiology signoff, reconsult as needed, follow-up arranged. Qualifiers: Cardiac valve disease etiology: nonrheumatic Qualified Code(s): I35.0 - Nonrheumatic aortic (valve) stenosis (2) CAD (coronary artery disease) Current Visit: Yes Status: Chronic Per Cardiology: S/p LHC: Lesion Findings/Interventions * Left Main Coronary Artery The LMCA is angiographically free of disease. * Left Anterior Descending There is a 20-30% stenosis in the Proximal LAD. There is a 40% stenosis in the Mid LAD. * Circumflex The Circumflex is angiographically free of disease. The 1st Marginal is angiographically free of disease. The Left PDA is angiographically free of disease. * Right Coronary Artery There is a 30-40% stenosis in the Proximal RCA. On Plavix-- per Dr. Mcqueen, ok to switch to asa, BB, statin, Imdur. Post procedure education provided. All questions answered. Qualifiers: Coronary Disease-Associated Artery/Lesion type: enterprise artery [place] vs. transplanted heart: enterprise heart Associated angina: without angina Qualified Code(s): I25.10 - Atherosclerotic heart disease of enterprise coronary artery without angina pectoris Discussion w patient/family: The assessment and plan as outlined above was discussed with the patient and/or family members who expressed understanding and agreement. All questions were answered. Thank you for involving us in the care of your patient. Please call with any questions. Subjective Principal diagnosis: CHF, Severe Interval history: Seen with family at bedside. Denies any chest pain or palpitations. Denies any concerns from her right groin site. Does report some lightheadedness with walking to bathroom this morning. Objective Vital Signs, Last 4 Hours Temp Pulse Resp BP Pulse Ox 07/01/19 06:34 98.1 F 81 16 155/78 93 General: Conversant, No Apparent Distress HEENT: Atraumatic, Normocephaly, Mucus Membranes Moist Neck: No JVD, Normal carotid pulses Cardiac: Reg Rate and Rhythm, Normal S1 and S2, Other (Grade III/ murmur) Lungs: Normal Breath Sounds, No Wheeze, Rales, Rhonchi Neuro: Alert and responsive, No focal deficits noted Abdomen: Soft, Non-Tender Skin: No rashes noted on visualized skin, Other (Right groin site is dry and intact, no hematoma, no bleeding, no ecchymosis, right PT and DP pulses 1+ palpable) Musculoskeletal: No Chest Wall Tenderness Extremities: No Clubbing, No Cyanosis, No Edema, Normal Pulses Results 06/27/19 10:00 07/01/19 04:20 Lab Results Laboratory Tests 07/01/19 04:20 Creatinine 0.97 Est GFR (Non-Af Amer) 57 L Impressions Chest X-Ray 06/30/19 14:48 IMPRESSION: Cardiomegaly and interstitial opacities, compatible with pulmonary edema. D/ / Lauren Serrano MD / Lauren Serrano MD Interpreting Provider: Lauren Serrano MD Active Medications Albuterol/Ipratropium (Duoneb) 3 ml IH [id number] PRN PRN Reason: Shortness Of Breath/Wheezing Stop: 12/27/19 16:01 Carvedilol (Coreg) 25 mg PO BIDWM [facility]; Protocol Stop: 12/28/19 20:12 Last Admin: 06/30/19 16:45 Dose: 25 mg Documented by: Clopidogrel Bisulfate (Plavix) 75 mg PO QAM [facility] Stop: 12/28/19 09:01 Last Admin: 06/30/19 08:17 Dose: 75 mg Documented by: Ferrous Sulfate (Ferrous Sulfate) 325 mg PO DAILY@1200 BARBARA Stop: 12/30/19 12:01 Last Admin: 06/30/19 11:46 Dose: Not Given Documented by: Heparin Sodium (Porcine) (Heparin) 5,000 unit SQ Q12HCO [facility]; Protocol Stop: 12/27/19 18:01 Last Admin: 07/01/19 06:49 Dose: 5,000 unit Documented by: Losartan Potassium (Cozaar) 50 mg PO DAILY [facility] Stop: 12/28/19 09:01 Last Admin: 06/28/19 09:09 Dose: 50 mg Documented by: Montelukast Sodium (Singulair) 10 mg PO HS [facility] Stop: 12/30/19 21:01 Last Admin: 06/30/19 21:01 Dose: 10 mg Documented by: Omeprazole (Prilosec) 20 mg PO 0730 [facility] Stop: 12/28/19 07:31 Last Admin: 06/30/19 08:17 Dose: 20 mg Documented by: Ondansetron HCl (Zofran) 4 mg IVP Q6HR PRN; Protocol PRN Reason: Nausea Stop: 12/27/19 13:41 Last Admin: 06/29/19 09:00 Dose: 4 mg Documented by: Oxybutynin Chloride (Ditropan) 5 mg PO BID [facility] Stop: 12/28/19 09:01 Last Admin: 06/29/19 08:13 Dose: 5 mg Documented by: Polyethylene Glycol (Miralax) 17 gm PO DAILY [facility] Stop: 12/28/19 11:01 Last Admin: 06/30/19 07:13 Dose: Not Given Documented by: Rosuvastatin Calcium (Crestor) 20 mg PO DAILY [facility] Stop: 12/28/19 09:01 Last Admin: 06/30/19 08:17 Dose: 20 mg Documented by: Senna/Docusate Sodium (Senna Plus) 1 each PO BID [facility]; Protocol Stop: 12/28/19 21:01 Last Admin: 06/30/19 21:01 Dose: 1 each Documented by: - Imaging and Cardiology Cardiac cath: report reviewed Consult Discharge Plan - Plan Referrals: Brody Robbins MD [Partnered Physician] - 08/09/19 3:00 pm ( ) Mo Chang MD [Primary Care Provider] - 07/05/19 2:30 pm
[2019-07-01] MEDS ORDERED: Aspirin Enteric Coated 81 MG Tablet PO SCH (09:00)
[2019-07-01] MEDS: Sennosides/Docusate Sodium TABLET PO SCH (09:24)
--- NOTE | 2019-07-01 09:49 | Discharge Summary ---
<ArleneValeriestan - Last Filed: 07/01/19 12:11> Orders not resulted at time of discharge: Pending orders 06/27/19 10:00 Culture,Blood [BC] Stat Date of Encounter: 07/01/19 Time of Encounter: 12:12 - Discharge Diagnosis (1) Acute decompensated heart failure Status: Acute (2) Chest pain Status: Acute Qualifiers: Chest pain type: unspecified Qualified Code(s): R07.9 - Chest pain, unspecified (3) Elevated troponin Status: Acute (4) Aortic stenosis Status: Acute Qualifiers: Cardiac valve disease etiology: nonrheumatic Qualified Code(s): I35.0 - Nonrheumatic aortic (valve) stenosis (5) CAD (coronary artery disease) Status: Chronic Qualifiers: Coronary Disease-Associated Artery/Lesion type: [place] artery [place] vs. transplanted heart: [place] heart Associated angina: without angina Qualified Code(s): I25.10 - Atherosclerotic heart disease of [place] coronary artery without angina pectoris (6) GERD (gastroesophageal reflux disease) Status: Chronic Qualifiers: Esophagitis presence: without esophagitis Qualified Code(s): K21.9 - Gastro-esophageal reflux disease without esophagitis (7) Hypertension Status: Chronic Qualifiers: Hypertension type: essential hypertension Qualified Code(s): I10 - Essential (primary) hypertension Hospital course: Ms. Renner is a 73 year old female - Time Spent with Patient Total time spent providing and/or coordinating discharge services: - Discharge Medications Prescriptions: New Aspirin Enteric Coated [Aspirin EC] 81 mg PO DAILY 30 Days #30 tablet. Furosemide [Lasix] 40 mg PO DAILY 30 Days #30 tablet Continued Losartan Potassium [Cozaar] 50 mg PO DAILY Ferrous Sulfate [Iron] 325 mg PO DAILY Rosuvastatin Calcium [Crestor] 20 mg PO DAILY Montelukast [Singulair] 10 mg PO DAILY Isosorbide MONOnitrate (24 HR) [Imdur] 60 mg PO DAILY Pantoprazole Sodium [Protonix] 40 mg PO DAILY Carvedilol [Coreg] 25 mg PO BID Ezetimibe 10 mg PO DAILY Nitroglycerin [Nitrostat] 0.4 mg SL Q5M PRN MDD MAX 3 DOSES/15MINS PRN Reason: Chest Pain Discontinued Ranitidine HCl [Heartburn Relief] 150 mg PO DAILY Oxybutynin Chloride [Ditropan XL] 5 mg PO DAILY Clopidogrel [Plavix] 75 mg PO DAILY Home Medications: Losartan Potassium [Cozaar] 50 mg PO DAILY 12/20/15 [History] Ferrous Sulfate [Iron] 325 mg PO DAILY 11/09/18 [History] Isosorbide MONOnitrate (24 HR) [Imdur] 60 mg PO DAILY 06/27/19 [History] Montelukast [Singulair] 10 mg PO DAILY 06/27/19 [History] Pantoprazole Sodium [Protonix] 40 mg PO DAILY 06/27/19 [History] Rosuvastatin Calcium [Crestor] 20 mg PO DAILY 06/27/19 [History] Carvedilol [Coreg] 25 mg PO BID 06/28/19 [History] Ezetimibe 10 mg PO DAILY 06/28/19 [History] Nitroglycerin [Nitrostat] 0.4 mg SL Q5M PRN MDD MAX 3 DOSES/15MINS 06/28/19 [History] Aspirin Enteric Coated [Aspirin EC] 81 mg PO DAILY 30 Days #30 tablet. 07/01/19 [Rx] Furosemide [Lasix] 40 mg PO DAILY 30 Days #30 tablet 07/01/19 [Rx] Allergies/Adverse Reactions: Allergy/AdvReac Type Severity Reaction Status Date / Time No Known Allergies Allergy Verified 06/28/19 08:11 Date of admission: 06/28/19 15:32 Primary care physician: Mo Chang MD Consults: 06/28/19 07:57 Consult to Nurse Navigator [CONS] Routine Comment: CHF 06/28/19 08:08 Consult to Cardiology [CONS] Routine Comment: Consulting Provider: Jesi Elkins Reason for Consult: Chest pain, Heart failure Call Completed: No - Constitutional Vitals: Temp Pulse Resp BP Pulse Ox 97.6 F 67 16 132/73 98 07/01/19 10:17 07/01/19 10:17 07/01/19 10:17 07/01/19 10:17 07/01/19 10:17 - Patient Status Disposition: Home, Self-Care Condition: Good - Discharge Instructions Instructions: Left Heart Catheterization (DC), Aortic Stenosis (DC), Seasoning Without Salt (DC), DASH Eating Plan (DC), Low Sodium Diet (DC), Fluid Restriction (DC) Follow Up With: Jesi Elkins [Provider Group] (Cardio office will call patient for an appt.) Brody Robbins MD [Partnered Physician] - 08/09/19 3:00 pm ( ) Mo Chang MD [Primary Care Provider] - 07/05/19 2:30 pm (Please follow up as schedule...) - Attending Attestation I saw evaluated and examined this patient and reviewed objective data including labs and my medical decision-making was reviewed with the Resident Physician. I agree with the documented findings, disposition and discharge plan as described except to any changes set forth below. We independently had [id number] contact with the patient. Patient with history of coronary artery disease with stents, moderate aortic stenosis, hypertension and hyperlipidemia was hospitalized here with left-sided chest pain and decompensated congestive heart failure. She was initially given intravenous Lasix and her cardiac enzymes were trended. Her troponin levels were adynamic. For her aortic stenosis, patient underwent transthoracic echocardiogram and then OLIVE and cardiology recommended that she undergo cardiac catheterization for eventual TAVR. Patient underwent left heart catheterization yesterday and was found to have mild 2 vessel coronary artery disease and has been recommended medical management. She will be referred outpatient for TAVR cardiology. Time spent on discharge: 10 min <Steven Lewis - Last Filed: 07/01/19 15:29> - NOTES TO OUTPATIENT PROVIDER Notes to Outpatient Provider: Pt was admitted for hypervolemia related to severe aortic stenosis. The patient had both a TTE and a OLIVE performed, as well as a [facility] for further planning for possible TAVR as outpatient. She will require close monitoring of her kidney functions and overall fluid status. Orders not resulted at time of discharge: Pending orders 06/27/19 10:00 Culture,Blood [BC] Stat Date of Encounter: 07/01/19 Time of Encounter: 09:49 - Discharge Diagnosis (1) Acute decompensated heart failure Priority: Primary Status: Acute (2) Chest pain Priority: Secondary Status: Acute Qualifiers: Chest pain type: unspecified Qualified Code(s): R07.9 - Chest pain, unspecified (3) Elevated troponin Priority: Secondary Status: Acute (4) Aortic stenosis Priority: Secondary Status: Acute Qualifiers: Cardiac valve disease etiology: nonrheumatic Qualified Code(s): I35.0 - Nonrheumatic aortic (valve) stenosis (5) CAD (coronary artery disease) Priority: Secondary Status: Chronic Qualifiers: Coronary Disease-Associated Artery/Lesion type: [place] artery [place] vs. transplanted heart: [place] heart Associated angina: without angina Qualified Code(s): I25.10 - Atherosclerotic heart disease of [place] coronary artery without angina pectoris (6) GERD (gastroesophageal reflux disease) Priority: Secondary Status: Chronic Qualifiers: Esophagitis presence: without esophagitis Qualified Code(s): K21.9 - Gastro-esophageal reflux disease without esophagitis (7) Hypertension Priority: Secondary Status: Chronic Qualifiers: Hypertension type: essential hypertension Qualified Code(s): I10 - Essential (primary) hypertension Hospital course: Ms. Renner is a 73 year old female who was admitted on 06/27/19 for chest pain and near syncopal episode. Patient reported she was getting up from a seated position and suddenly experienced lightheadedness with a headache and fell back down. No trauma. Reports concomitant severe orthopnea home, requiring the use of 2 pillows under her head at night. She has past medical history of COPD, coronary artery disease, hyperlipidemia, hypertension, osteoarthritis, and previous colon cancer. She does have known aortic stenosis, and was recommended and August 2018 for medical management. Vital signs in the ED as follows: Temperature 98.2 Pulse 62 Respiratory rate 22 Blood pressure 213/90 SPO2 100% on room air EKG from the ED showed normal sinus rhythm. CT of the head demonstrated no acute intracranial abnormality. Chest x-ray showed worsening interstitial prominence suggestive of heart failure and edema. The patient then received 40 mg IV Lasix in the ED and was admitted for chest pain and CHF exacerbation. While admitted at [facility], the cardiology team was consult and given the patient's cardiac history. An echocardiogram was obtained which demonstrated LVEF 55%, mild left ventricular diastolic dysfunction, mild concentric left ventricular hypertrophy, moderate to severe aortic stenosis, mild to moderate aortic regurgitation, and mild tricuspid regurgitation. Troponins were trended initially during admission but remained adynamic at 0.06. The patient initially had a brisk response to the IV Lasix from the ED with 1.6 L output of urine, and subsequent worsening of kidney functions. Further diuresis was held at that point and the patient was given 500 mL gentle IV fluid hydration. Kidney functions were improving at time of discharge. The cardiology team recommended a transesophageal echocardiogram for further evaluation of progressing aortic stenosis. They also recommended transition from Plavix to ASA 81mg daily. During this OLIVE it was also recommended that the patient undergo a left heart catheterization for future outpatient TAVR procedure. The OLIVE demonstrated severe aortic stenosis with moderately calcified trileaflet aortic valve with severely reduced excursion. The [facility] did demonstrated mild 2 vessel CAD. On day of discharge the patient appeared to be euvolemic. She was provided with prescriptions for ASA 81mg daily, and Lasix 40mg daily. The patient was recommended for close follow up with her PCP for further monitoring of fluid status and kidney functions. She was educated on the importance of a low salt diet, as well as a 1.5L fluid restricted diet. The patient was also recommended for follow up with cardiology as outpatient for possible TAVR planning. Pt stable for discharge to home. Discharge discussed with: patient, family, nurse, independent consultant - Time Spent with Patient Total time spent providing and/or coordinating discharge services: Date of admission: 06/28/19 15:32 Primary care physician: Mo Chang MD Consults: 06/28/19 07:57 Consult to Nurse Navigator [CONS] Routine Comment: CHF 06/28/19 08:08 Consult to Cardiology [CONS] Routine Comment: Consulting Provider: Cardiology Brittni Reason for Consult: Chest pain, Heart failure Call Completed: No - Constitutional Vitals: Temp Pulse Resp BP Pulse Ox 98.1 F 81 16 155/78 93 07/01/19 06:34 07/01/19 06:34 07/01/19 06:34 07/01/19 06:34 07/01/19 06:34 General appearance: Present: A&O X 3, no acute distress Exam: Constitutional: Well-developed female in no acute distress Head: Normocephalic, atraumatic Eyes: PERRL, EOMI, conjunctiva pink, sclera anicteric Neck: Supple, trachea midline, no lymphadenopathy Lungs: Clear to auscultation bilaterally. Nonlabored breathing. No wheezes, rales, or rhonchi noted. Cardiac: RRR. +s1 +s2 grade 2 blowing systolic murmur noted at the left sternal border. No clicks, or rubs noted. GI: Abdomen soft, nontender, nondistended. Normoactive bowel sounds Extremities: Warm, radial pulses palpable and symmetrical. No cyanosis, pedal edema, or calf tenderness. Neuro: Alert and oriented 3. No focal deficits. Normal speech. Skin: Warm, dry, and intact. - Patient Status Functional capacity at discharge: uses cane/walker Overall status at discharge: patient is back to baseline - Diet and Activity Activity: increase activity as tolerated, resume usual activities as tolerated, wear oxygen at night Diet: low fat, low cholesterol, low salt diet, other (1.5 fluid restriction diet )
[2019-07-01] MEDS ORDERED: Acetaminophen 325 MG TABLET PO ONE (09:58)
[2019-07-01 10:18] VITALS: BP 132/73
== END 2019-07-01 15:28 | disposition home or self-care (01) | DRG 287 ==
LOC: EMEROOARM 09:50 → 3BNU 09:50 → SUATTDRO 13:14 → 3BNU 13:30 → SUATTDRO 06-28 15:32 → 2ANU 06-29 13:51
PROVIDERS: ADMIT Student in an Organized Health Care Education/Training Program; ATTEND Internal Medicine

== ENCOUNTER 2021-10-10 15:58 | Inpatient (IN) ==
[2021-10-10 17:07] LABS: Bilirubin,Urine Negative (Negative); Blood,Urine Negative (Negative); Clarity,Urine Clear (Clear); Color,Urine Light-Yellow (Yellow); Glucose,Urine (UA) Normal (Normal); Ketones,Urine Negative (Negative); Leukocyte Esterase,Urine Negative (Negative); Nitrite,Urine Negative (Negative); Protein,Urine Negative (Neg-Trace); Urobilinogen,Urine Normal (Normal)
[2021-10-10 17:17] LABS: Amphetamine Screen,Urine Negative ng/mL (Cutoff=1000); Barbiturate Screen,Urine Negative ng/mL (Cutoff=200); Benzodiazepines Screen,Urine Negative ng/mL (Cutoff=200); Cannabinoid Screen,Urine Negative ng/mL (Cutoff = 50); Cocaine Screen,Urine Negative ng/mL (Cutoff= 300); Opiate Screen,Urine Negative ng/mL (Cutoff=300); Phencyclidine Screen,Urine Negative ng/mL (Cutoff=25)
[2021-10-10 17:23] LABS: Basophils # 0.1 K/mcL (0.0-0.2); Basophils % 0.9 %; Eosinophils # 0.4 K/mcL (0.0-0.6); Hemoglobin 10.9 g/dL (11.5-15.4); Immature Granulocytes % 0.3 % (0-4); Lymphocytes # 2.1 K/mcL (0.6-4.6); Mean Corpuscular HGB Conc 30.3 g/dL (31.6-35.5); Mean Corpuscular Volume 92.5 fL (83.0-100.0); Mean Platelet Volume 11.1 fL (9.4-12.4); Monocytes # 0.8 K/mcL (0.0-1.3); Monocytes % 11.6 %; Neutrophils # 3.3 K/mcL (1.6-8.9); Platelet Count 201 K/mcL (140-400); Red Blood Count 3.89 M/mcL (3.82-4.97); Red Cell Distribution Width 13.2 % (11.5-14.5); Segmented Neutrophils % 49.2 %; White Blood Count 6.7 K/mcL (4.3-11.1)
[2021-10-10 17:40] LABS: Alanine Aminotransferase 11 Units/L (7-52); Albumin 3.7 g/dL (3.5-5.7); Albumin/Globulin Ratio 0.9 (1.1-2.2); Alkaline Phosphatase 63 Units/L (34-104); Aspartate Amino Transferase 15 Units/L (13-39); BUN/Creatinine Ratio 17 (6-26); Bilirubin,Direct 0.1 mg/dL (0.0-0.2); Bilirubin,Indirect 0.2 mg/dL (0.0-1.0); Bilirubin,Total 0.3 mg/dL (0.3-1.0); Blood Urea Nitrogen 24 mg/dL (8-23); Calcium 9.5 mg/dL (8.6-10.3); Carbon Dioxide 28 mEq/L (23-29); Chloride 97 mEq/L (98-107); Ethanol < 10 mg/dL (Less than 10); Globulin 3.9 g/dL (2.4-3.5); Glucose 131 mg/dL (70-105); Osmolality,Calculated 280 (280-300); Potassium 3.9 mEq/L (3.5-5.1); Sodium 132 mEq/L (136-145); Total Protein 7.6 g/dL (6.4-8.9); Troponin I 0.03 ng/mL (< 0.04); eGFR For African Americans 43 (> 60); eGFR For Non-African Americans 36 (> 60)
[2021-10-10] MEDS ORDERED: 0.9 % Sodium Chloride 1,000 ML IV ONE (17:44)
[2021-10-10] MEDS ORDERED: 0.9 % Sodium Chloride 1,000 ML IVC SCH (20:00)
[2021-10-10] MEDS ORDERED: Naloxone 0.4 MG/ML INJ IVP PRN (20:00)
[2021-10-10] MEDS ORDERED: Acetaminophen 325 MG TABLET PO PRN (20:04)
[2021-10-10 21:13] LABS: Thyroid Stimulating Hormone 2.083 mcIU/mL (0.340-5.600)
[2021-10-11 03:26] LABS: Hematocrit 32.2 % (35.3-44.9); Hemoglobin 10.1 g/dL (11.5-15.4); Mean Corpuscular HGB Conc 31.4 g/dL (31.6-35.5); Mean Corpuscular Hemoglobin 29.3 pg (28.0-33.3); Mean Corpuscular Volume 93.3 fL (83.0-100.0); Mean Platelet Volume 10.6 fL (9.4-12.4); Platelet Count 168 K/mcL (140-400); Red Blood Count 3.45 M/mcL (3.82-4.97); Red Cell Distribution Width 13.2 % (11.5-14.5); White Blood Count 5.7 K/mcL (4.3-11.1)
[2021-10-11 03:48] LABS: Potassium 3.5 mEq/L (3.5-5.1)
[2021-10-11] MEDS ORDERED: Perflutren Lipid Microsphere 1.3 ML in 0.9 % Sodium Chloride 8.7 ML IVP PRN (10:37)
[2021-10-11] MEDS ORDERED: Isovue-370 500 ML BOTTLE IVP ONE (12:13)
[2021-10-11] MEDS ORDERED: *HR* LORazepam 2 MG/ML VIAL IVP ONE (12:32)
[2021-10-11] MEDS: Aspirin 81 MG TAB.CHEW PO SCH (12:40)
[2021-10-11 19:19] LABS: Folate 6.7 ng/mL (3.0-16.0)
[2021-10-12 06:38] LABS: Basophils # 0.1 K/mcL (0.0-0.2); Basophils % 0.8 %; Eosinophils # 0.5 K/mcL (0.0-0.6); Eosinophils % 8.1 %; Hematocrit 36.5 % (35.3-44.9); Immature Granulocytes % 0.3 % (0-4); Lymphocytes # 1.5 K/mcL (0.6-4.6); Lymphocytes % 22.4 %; Mean Corpuscular HGB Conc 30.1 g/dL (31.6-35.5); Mean Corpuscular Hemoglobin 28.3 pg (28.0-33.3); Mean Corpuscular Volume 93.8 fL (83.0-100.0); Mean Platelet Volume 11.5 fL (9.4-12.4); Monocytes # 0.6 K/mcL (0.0-1.3); Monocytes % 9.2 %; Neutrophils # 3.9 K/mcL (1.6-8.9); Platelet Count 199 K/mcL (140-400); Red Blood Count 3.89 M/mcL (3.82-4.97); Red Cell Distribution Width 13.6 % (11.5-14.5); Segmented Neutrophils % 59.2 %; White Blood Count 6.6 K/mcL (4.3-11.1)
[2021-10-12 06:46] LABS: BUN/Creatinine Ratio 16 (6-26); Blood Urea Nitrogen 14 mg/dL (8-23); Calcium 9.4 mg/dL (8.6-10.3); Carbon Dioxide 27 mEq/L (23-29); Chloride 105 mEq/L (98-107); Chol/HDL Ratio 2.8 (0-4.9); Cholesterol 143 mg/dL (< 200); Glucose 96 mg/dL (70-105); HDL Cholesterol 52 mg/dL (40-59); LDL Cholesterol,Calculated 78 mg/dL (< 100); Osmolality,Calculated 288 (280-300); Potassium 3.8 mEq/L (3.5-5.1); Sodium 139 mEq/L (136-145); Triglycerides 64 mg/dL (< 150); eGFR For African Americans > 60 (> 60); eGFR For Non-African Americans > 60 (> 60)
[2021-10-12] MEDS: Isosorbide MONOnitrate (24 HR) 60 MG TAB.ER.24H PO SCH (08:52)
[2021-10-12] MEDS: Sucralfate 1 GM TABLET PO SCH ×2 (08:52→20:23)
[2021-10-12] MEDS: Aspirin 81 MG TAB.CHEW PO SCH (08:52)
[2021-10-12] MEDS: Ezetimibe 10 MG Tablet PO SCH (08:53)
[2021-10-13] MEDS: Ezetimibe 10 MG Tablet PO SCH (08:28)
[2021-10-13] MEDS: Sucralfate 1 GM TABLET PO SCH ×2 (08:28→20:39)
[2021-10-13] MEDS: Isosorbide MONOnitrate (24 HR) 60 MG TAB.ER.24H PO SCH (08:28)
[2021-10-13] MEDS: Folic Acid 1 MG TABLET PO SCH (08:28)
[2021-10-13] MEDS: Aspirin 81 MG TAB.CHEW PO SCH (08:28)
[2021-10-13 10:19] LABS: Adenovirus Not Detected (Not Detect); Bordetella Pertussis Not Detected (Not Detect); Chlamydophila pneumoniae Not Detected (Not Detect); Coronavirus 229E Not Detected (Not Detect); Coronavirus HKU1 Not Detected (Not Detect); Coronavirus NL63 Not Detected (Not Detect); Coronavirus OC43 Not Detected (Not Detect); Human Metapneumovirus Not Detected (Not Detect); Human Rhinovirus/Enterovirus Not Detected (Not Detect); Influenza A Subtype 2009 H1 Not Detected (Not Detect); Influenza B Not Detected (Not Detect); Mycoplasma pneumoniae Not Detected (Not Detect); Parainfluenza Virus 1 Not Detected (Not Detect); Parainfluenza Virus 2 Not Detected (Not Detect); Parainfluenza Virus 3 Not Detected (Not Detect); Parainfluenza Virus 4 Not Detected (Not Detect); Respiratory Syncytial Virus Not Detected (Not Detect); SARS-CoV-2 Not Detected (Not Detect)
[2021-10-13] MEDS: Lactobacillus 1 EACH CAP.SPRINK PO SCH (20:44)
[2021-10-13] MEDS ORDERED: ARIPiprazole 2 MG TABLET PO SCH (21:00)
[2021-10-14] MEDS: Sucralfate 1 GM TABLET PO SCH (08:49)
[2021-10-14] MEDS: Ezetimibe 10 MG Tablet PO SCH (08:49)
[2021-10-14] MEDS: Folic Acid 1 MG TABLET PO SCH (08:49)
[2021-10-14] MEDS: Aspirin 81 MG TAB.CHEW PO SCH (08:50)
[2021-10-14] MEDS: Lactobacillus 1 EACH CAP.SPRINK PO SCH (09:02)
[2021-10-14] MEDS: Isosorbide MONOnitrate (24 HR) 60 MG TAB.ER.24H PO SCH (09:14)
[2021-10-14 09:56] VITALS: BP 114/74; PULSE 80; TEMP 98.5; O2SAT 94
== END 2021-10-13 11:30 | disposition home or self-care (01) | DRG 682 ==
LOC: 3NENU 15:58 → EMEROOARM 15:58 → SUATTDRO 19:37 → 3NENU 21:19 → SUATTDRO 10-12 17:55
PROVIDERS: ADMIT Family Medicine; ATTEND Internal Medicine